=== PATIENT | male | born 1955 | race Caucasian/White ===

== ENCOUNTER 2017-07-02 09:39 | Emergency (ER) | payer OTHER ==
[2017-07-02] MEDS ORDERED: ASPIRIN 81 MG PO STA (09:53)
[2017-07-02] MEDS ORDERED: NITROGLYCERIN OINT 1 INCH/GM PACKET TOPICAL STA (09:53)
--- NOTE | 2017-07-02 09:55 | ED ---
General Adult HPI - General Chief complaint: Chest Pain Stated complaint: Chest pain Time Seen by Provider: 07/02/17 09:47 Source: patient, RN notes reviewed Mode of arrival: wheelchair Limitations: no limitations - History of Present Illness Initial comments: Patient is a pleasant 61-year-old male presenting to the emergency Department with chest discomfort. Onset of symptoms was yesterday afternoon. Symptoms have been waxing and waning. Discomfort feels like tightness. There is also some associated indigestion. No associated nausea or diaphoresis or dyspnea. No history of similar symptoms previously. Discomfort has been up to his high as 5/10. Currently discomfort is 2/10. No radiation. - Related Data Home Medications Medication Instructions Recorded Confirmed No Known Home Medications [No 07/02/17 07/02/17 Known Home Medications] Allergies Allergy/AdvReac Type Severity Reaction Status Date / Time No Known Allergies Allergy Verified 07/02/17 09:57 Review of Systems ROS Statement: Those systems with pertinent positive or pertinent negative responses have been documented in the HPI. ROS Other: All systems not noted in ROS Statement are negative. Constitutional: Denies: fever Eyes: Denies: eye pain ENT: Denies: ear pain Respiratory: Denies: cough, dyspnea Cardiovascular: Reports: chest pain, palpitations Endocrine: Denies: fatigue Gastrointestinal: Denies: abdominal pain Genitourinary: Denies: dysuria Musculoskeletal: Denies: back pain Skin: Denies: rash Neurological: Denies: weakness Past Medical History Past Medical History: No Reported History History of Any Multi-Drug Resistant Organisms: None Reported Past Surgical History: Tonsillectomy Past Psychological History: No Psychological Hx Reported Smoking Status: Never smoker Past Alcohol Use History: None Reported Past Drug Use History: None Reported General Exam Limitations: no limitations General appearance: alert, in no apparent distress Head exam: Present: atraumatic Eye exam: Present: normal appearance, PERRL ENT exam: Present: normal oropharynx Neck exam: Present: normal inspection Respiratory exam: Present: normal lung sounds bilaterally. Absent: chest wall tenderness Cardiovascular Exam: Present: regular rate, normal rhythm Expanded Peripheral pulses: 2+: Radial (R), Radial (L), Posterior Tibialis (R), Posterior Tibialis (L) GI/Abdominal exam: Present: soft. Absent: tenderness Extremities exam: Present: normal inspection. Absent: pedal edema, calf tenderness Neurological exam: Present: alert Psychiatric exam: Present: normal affect, normal mood Skin exam: Present: normal color Course Vital Signs 07/02/17 07/02/17 07/02/17 09:42 10:19 12:03 Temperature 98.2 F 98.2 F Pulse Rate 84 78 68 Respiratory 20 16 16 Rate Blood Pressure 240/107 195/79 181/79 O2 Sat by Pulse 98 96 97 Oximetry EKG Findings - EKG Comments: EKG Findings:: PVC present. Sinus rhythm at 74. CT 178. QRS 114. QT 398. QTC 441. Left axis. Normal QRS. No acute ST change. Medical Decision Making - Medical Decision Making Patient reevaluated and near symptom-free at this time. Patient states he is having more indigestion problems and feels her symptoms are related to that. Patient and spouse are updated on results. Patient is made aware that heart attack has not been ruled out at this time. Patient is also made aware that risk for heart attack in the near future also exists. Patient is recommended admission for repeat testing and cardiology evaluation. Despite this patient refuses to stay. Patient will leave AGAINST MEDICAL ADVICE. Patient does demonstrate medical decision making. Patient is recommended close follow-up with primary care physician and cardiology. - Lab Data Result diagrams: 07/02/17 10:17 07/02/17 10:17 Lab Results 07/02/17 07/02/17 07/02/17 Range/Units 10:17 10:17 10:17 WBC 7.1 (3.8-10.6) k/uL RBC 5.09 (4.30-5.90) m/uL Hgb 15.2 (13.0-17.5) gm/dL Hct 45.6 (39.0-53.0) % MCV 89.5 (80.0-100.0) fL MCH 29.8 (25.0-35.0) pg MCHC 33.3 (31.0-37.0) g/dL RDW 13.3 (11.5-15.5) % Plt Count 204 (150-450) k/uL Neutrophils % 70 % Lymphocytes % 24 % Monocytes % 4 % Eosinophils % 1 % Basophils % 1 % Neutrophils # 5.0 (1.3-7.7) k/uL Lymphocytes # 1.7 (1.0-4.8) k/uL Monocytes # 0.3 (0-1.0) k/uL Eosinophils # 0.1 (0-0.7) k/uL Basophils # 0.1 (0-0.2) k/uL PT (9.0-12.0) sec INR (<1.2) APTT (22.0-30.0) sec Sodium 140 (137-145) mmol/L Potassium 4.0 (3.5-5.1) mmol/L Chloride 104 (98-107) mmol/L Carbon Dioxide 23 (22-30) mmol/L Anion Gap 13 mmol/L BUN 14 (9-20) mg/dL Creatinine 0.86 (0.66-1.25) mg/dL Est GFR (MDRD) Af Amer >60 (>60 ml/min/1.73 sqM) Est GFR (MDRD) Non-Af >60 (>60 ml/min/1.73 sqM) Glucose 123 H (74-99) mg/dL Calcium 9.4 (8.4-10.2) mg/dL Magnesium 1.8 (1.6-2.3) mg/dL Total Bilirubin 0.9 (0.2-1.3) mg/dL AST 31 (17-59) U/L ALT 38 (21-72) U/L Alkaline Phosphatase 106 (38-126) U/L Total Creatine Kinase 159 (55-170) U/L CK-MB (CK-2) 3.8 H* (0.0-2.4) ng/mL CK-MB (CK-2) Rel Index 2.4 Troponin I 0.031 (0.000-0.034) ng/mL Total Protein 7.4 (6.3-8.2) g/dL Albumin 4.2 (3.5-5.0) g/dL 07/02/17 Range/Units 10:17 WBC (3.8-10.6) k/uL RBC (4.30-5.90) m/uL Hgb (13.0-17.5) gm/dL Hct (39.0-53.0) % MCV (80.0-100.0) fL MCH (25.0-35.0) pg MCHC (31.0-37.0) g/dL RDW (11.5-15.5) % Plt Count (150-450) k/uL Neutrophils % % Lymphocytes % % Monocytes % % Eosinophils % % Basophils % % Neutrophils # (1.3-7.7) k/uL Lymphocytes # (1.0-4.8) k/uL Monocytes # (0-1.0) k/uL Eosinophils # (0-0.7) k/uL Basophils # (0-0.2) k/uL PT 10.9 (9.0-12.0) sec INR 1.1 (<1.2) APTT 22.4 (22.0-30.0) sec Sodium (137-145) mmol/L Potassium (3.5-5.1) mmol/L Chloride (98-107) mmol/L Carbon Dioxide (22-30) mmol/L Anion Gap mmol/L BUN (9-20) mg/dL Creatinine (0.66-1.25) mg/dL Est GFR (MDRD) Af Amer (>60 ml/min/1.73 sqM) Est GFR (MDRD) Non-Af (>60 ml/min/1.73 sqM) Glucose (74-99) mg/dL Calcium (8.4-10.2) mg/dL Magnesium (1.6-2.3) mg/dL Total Bilirubin (0.2-1.3) mg/dL AST (17-59) U/L ALT (21-72) U/L Alkaline Phosphatase (38-126) U/L Total Creatine Kinase (55-170) U/L CK-MB (CK-2) (0.0-2.4) ng/mL CK-MB (CK-2) Rel Index Troponin I (0.000-0.034) ng/mL Total Protein (6.3-8.2) g/dL Albumin (3.5-5.0) g/dL - Radiology Data Radiology results: image reviewed (Chest x-ray shows no acute process) Disposition Clinical Impression: Chest pain Disposition: Left Against Medical Advice Instructions: Chest Pain (ED) Additional Instructions: Please follow-up with primary care physician and cardiology tomorrow. Aspirin daily. Return for chest pain, difficulty breathing, nausea, sweating, worsening or change in symptoms or other concerns. You are leaving AGAINST MEDICAL ADVICE. Referrals: Tico Wells MD [STAFF PHYSICIAN] - 1-2 days Srikanth Dumont MD [STAFF PHYSICIAN] - 1-2 days Time of Disposition: 12:13
[2017-07-02 10:36] LABS: Basophils # (A) 0.1 k/uL (0-0.2); Basophils % (A) 1 %; Eosinophils # (A) 0.1 k/uL (0-0.7); Eosinophils % (A) 1 %; HCT 45.6 % (39.0-53.0); HGB 15.2 gm/dL (13.0-17.5); Lymphocytes # (A) 1.7 k/uL (1.0-4.8); Lymphocytes % (A) 24 %; MCH 29.8 pg (25.0-35.0); MCHC 33.3 g/dL (31.0-37.0); MCV 89.5 fL (80.0-100.0); Mean Platelet Volume 7.6; Monocytes # (A) 0.3 k/uL (0-1.0); Monocytes % (A) 4 %; Neutrophils % (A) 70 %; Platelet Count 204 k/uL (150-450); RBC 5.09 m/uL (4.30-5.90); RDW 13.3 % (11.5-15.5); WBC 7.1 k/uL (3.8-10.6)
[2017-07-02 10:44] LABS: INR 1.1 (<1.2); Partial Thromboplastin Time 22.4 sec (22.0-30.0); Prothrombin Time 10.9 sec (9.0-12.0)
--- NOTE | 2017-07-02 10:46 | XR ---
EXAMINATION TYPE: XR chest 2V DATE OF EXAM: 07/02/2017 COMPARISON: NONE HISTORY: Chest pain TECHNIQUE: Frontal and lateral views of the chest are obtained. FINDINGS: There is no focal air space opacity, pleural effusion, or pneumothorax seen. The cardiac silhouette size is within normal limits. The osseous structures are intact. Moderate multilevel deg enerative changes of the thoracic spine are noted. IMPRESSION: No acute cardiopulmonary process.
[2017-07-02 10:47] LABS: ALT 38 U/L (21-72); AST 31 U/L (17-59); Albumin 4.2 g/dL (3.5-5.0); Alkaline Phosphatase 106 U/L (38-126); Anion Gap 13 mmol/L; Blood Urea Nitrogen 14 mg/dL (9-20); Calcium 9.4 mg/dL (8.4-10.2); Carbon Dioxide 23 mmol/L (22-30); Chloride 104 mmol/L (98-107); Glucose 123 mg/dL (74-99); Magnesium 1.8 mg/dL (1.6-2.3); Sodium 140 mmol/L (137-145); Total Bilirubin 0.9 mg/dL (0.2-1.3); Total Protein 7.4 g/dL (6.3-8.2)
[2017-07-02 11:14] LABS: Troponin I 0.031 ng/mL (0.000-0.034)
[2017-07-02 11:22] LABS: Creatine Kinase MB 3.8 ng/mL (0.0-2.4)
[2017-07-02 12:54] VITALS: BP 167/78; PULSE 72; RESP 18; TEMP 97.8
== END 2017-07-02 12:54 | disposition left against medical advice (07) ==
LOC: EC 09:39
DX: R07.9 Chest pain, unspecified (principal)
CPT/HCPCS: 36415; 71046; 80053; 82550; 82553; 83735; 84484; 85025; 85610; 85730; 93005; 99285

== ENCOUNTER 2018-11-10 10:59 | Inpatient (IN) | payer OTHER ==
[2018-11-10] MEDS ORDERED: SODIUM CHLORIDE 0.9% 500 ML 500 ML IV STA (11:39)
--- NOTE | 2018-11-10 11:46 | ED ---
General Adult HPI - General Chief complaint: Syncope Stated complaint: Syncope, head injury Time Seen by Provider: 11/10/18 11:09 Source: patient Mode of arrival: wheelchair Limitations: no limitations - History of Present Illness Initial comments: Dictation was produced using [employer] dictation software. please excuse any grammatical, word or spelling errors. Chief Complaint: 63-year-old male with no significant past medical history presents with episode of syncope. History of Present Illness: 63-year-old male he was in his barn earlier today when he was carrying a 5 gallon drum while. He states he opened the drum of oil and got a strong whiff of the smell. He states he put the cover back on and carried it to some distance when he syncopized. The next Romberg was waking up on the ground with a slight posterior headache. Patient noted some blood on the back of his head. Patient believes he was on the ground for approximately 3-4 minutes. She denies any symptoms prior to the onset of his syncope. He does report that upon waking he had some posterior interscapular pain. Patient also has been having couple days of jaw tenderness worse with mastication. Patient recently was evaluated by cardiology where he had extensive testing performed and was told that cardiac workup was negative. Patient denies any no deficits. Patient has no chest complaints. Patient does not know if he has a history of left bundle branch block but he was told that he has abnormal signal to his left and right heart. The ROS documented in this emergency department record has been reviewed and confirmed by me. Those systems with pertinent positive or negative responses have been documented in the HPI. All other systems are other negative and/or noncontributory. PHYSICAL EXAM: General Impression: Alert and oriented x3, not in acute distress HEENT: Superficial abrasion to the posterior head at the occiput with mild swelling, extra-ocular movements intact, pupils equal and reactive to light bilaterally, mucous membranes moist. Cardiovascular: Heart regular rate and rhythm, S1&S2 audible, no murmurs, rubs or gallops Chest: Lungs clear to auscultation bilaterally, no rhonchi, no wheeze, no rales Abdomen: Bowel sounds present, abdomen soft, non-tender, non-distended, no organomegaly Musculoskeletal: Pulses present and equal in all extremities, no peripheral edema Motor: no focal deficits noted Neurological: CN II-XII grossly intact, no focal motor or sensory deficits noted Skin: Intact with no visualized rashes Psych: Normal affect and mood ED course: 63-year-old male presents with chief complaint of syncope. Vital signs upon arrival shows blood pressure of 224/117. Patient is slightly anxious. EKG shows left bundle branch block that is not apparent on EKG from June of last year. Patient denies any shortness of breath. Patient states that his pain in his interscapular region is improving. Denies any numbness or paresthesias to extremities. At this point there is no clinical suspicion of syncope secondary to acute aortic dissection. Repeat vital signs were obtained. Patient's blood pressure still high in the 200s systolic. Laboratory evaluation obtained. CBC, coag panel is unremarkable. Metabolic panel is negative. Urinalysis is negative. Patient has any chest pain or shortness of breath. Computed tomography scan of the head and C-spine was obtained showing no acute processes. No evidence of subarachnoid bleed or bleeding aneurysm. There is posterior occipital scalp hematoma. CT C-spine is negative. C-collar was removed. At this point given patient's symptoms there is high concern that his significant be could be cardiac related. Is unclear whether his left bundle branch block is new. However he is asymptomatic aside denies any chest pain chest pressure and shortness of breath or any other ACS equivalent. Furthermore, patient has negative troponin. Patient be admitted to observation for cardiac monitoring and cardiac consultation. Patient labetalol per request and protocol for floor. EKG interpretation: Ventricular rate 89, normal sinus rhythm, IA interval 180, QRS 174, QTc 506. No IA prolongation, , no ST or T-wave changes noted. - Related Data Home Medications Medication Instructions Recorded Confirmed No Known Home Medications 07/02/17 11/10/18 Allergies Allergy/AdvReac Type Severity Reaction Status Date / Time No Known Allergies Allergy Verified 11/10/18 11:42 Review of Systems ROS Statement: Those systems with pertinent positive or pertinent negative responses have been documented in the HPI. ROS Other: All systems not noted in ROS Statement are negative. Past Medical History Past Medical History: No Reported History History of Any Multi-Drug Resistant Organisms: None Reported Past Surgical History: Tonsillectomy Past Psychological History: No Psychological Hx Reported Smoking Status: Never smoker Past Alcohol Use History: None Reported Past Drug Use History: None Reported General Exam Limitations: no limitations Course Vital Signs 11/10/18 11:04 Temperature 97.4 F L Pulse Rate 89 Respiratory 18 Rate Blood Pressure 224/117 O2 Sat by Pulse 99 Oximetry Medical Decision Making - Lab Data Result diagrams: 11/10/18 11:50 11/10/18 11:50 Lab Results 11/10/18 11/10/18 11/10/18 Range/Units 11:50 11:50 11:50 WBC 8.1 (3.8-10.6) k/uL RBC 5.01 (4.30-5.90) m/uL Hgb 14.6 (13.0-17.5) gm/dL Hct 45.2 (39.0-53.0) % MCV 90.2 (80.0-100.0) fL MCH 29.1 (25.0-35.0) pg MCHC 32.3 (31.0-37.0) g/dL RDW 13.9 (11.5-15.5) % Plt Count 211 (150-450) k/uL Neutrophils % 76 % Lymphocytes % 16 % Monocytes % 4 % Eosinophils % 1 % Basophils % 1 % Neutrophils # 6.1 (1.3-7.7) k/uL Lymphocytes # 1.3 (1.0-4.8) k/uL Monocytes # 0.4 (0-1.0) k/uL Eosinophils # 0.1 (0-0.7) k/uL Basophils # 0.1 (0-0.2) k/uL PT (9.0-12.0) sec INR (<1.2) APTT (22.0-30.0) sec Sodium 141 (137-145) mmol/L Potassium 4.5 (3.5-5.1) mmol/L Chloride 104 (98-107) mmol/L Carbon Dioxide 29 (22-30) mmol/L Anion Gap 8 mmol/L BUN 18 (9-20) mg/dL Creatinine 0.92 (0.66-1.25) mg/dL Est GFR (CKD-EPI)AfAm >90 (>60 ml/min/1.73 sqM) Est GFR (CKD-EPI)NonAf 88 (>60 ml/min/1.73 sqM) Glucose 119 H (74-99) mg/dL Calcium 9.3 (8.4-10.2) mg/dL Magnesium 1.8 (1.6-2.3) mg/dL Total Bilirubin 0.7 (0.2-1.3) mg/dL AST 47 (17-59) U/L ALT 41 (21-72) U/L Alkaline Phosphatase 184 H (38-126) U/L CK-MB (CK-2) 2.3 (0.0-2.4) ng/mL Troponin I 0.013 (0.000-0.034) ng/mL Total Protein 7.3 (6.3-8.2) g/dL Albumin 4.2 (3.5-5.0) g/dL Urine Color Urine Appearance (Clear) Urine pH (5.0-8.0) Ur Specific [place] (1.001-1.035) Urine Protein (Negative) Urine Glucose (UA) (Negative) Urine Ketones (Negative) Urine Blood (Negative) Urine Nitrite (Negative) Urine Bilirubin (Negative) Urine Urobilinogen (<2.0) mg/dL Ur Leukocyte Esterase (Negative) 11/10/18 11/10/18 Range/Units 11:50 13:24 WBC (3.8-10.6) k/uL RBC (4.30-5.90) m/uL Hgb (13.0-17.5) gm/dL Hct (39.0-53.0) % MCV (80.0-100.0) fL MCH (25.0-35.0) pg MCHC (31.0-37.0) g/dL RDW (11.5-15.5) % Plt Count (150-450) k/uL Neutrophils % % Lymphocytes % % Monocytes % % Eosinophils % % Basophils % % Neutrophils # (1.3-7.7) k/uL Lymphocytes # (1.0-4.8) k/uL Monocytes # (0-1.0) k/uL Eosinophils # (0-0.7) k/uL Basophils # (0-0.2) k/uL PT 9.7 (9.0-12.0) sec INR 0.9 (<1.2) APTT 21.4 L (22.0-30.0) sec Sodium (137-145) mmol/L Potassium (3.5-5.1) mmol/L Chloride (98-107) mmol/L Carbon Dioxide (22-30) mmol/L Anion Gap mmol/L BUN (9-20) mg/dL Creatinine (0.66-1.25) mg/dL Est GFR (CKD-EPI)AfAm (>60 ml/min/1.73 sqM) Est GFR (CKD-EPI)NonAf (>60 ml/min/1.73 sqM) Glucose (74-99) mg/dL Calcium (8.4-10.2) mg/dL Magnesium (1.6-2.3) mg/dL Total Bilirubin (0.2-1.3) mg/dL AST (17-59) U/L ALT (21-72) U/L Alkaline Phosphatase (38-126) U/L CK-MB (CK-2) (0.0-2.4) ng/mL Troponin I (0.000-0.034) ng/mL Total Protein (6.3-8.2) g/dL Albumin (3.5-5.0) g/dL Urine Color Yellow Urine Appearance Clear (Clear) Urine pH 6.5 (5.0-8.0) Ur Specific [place] 1.012 (1.001-1.035) Urine Protein Negative (Negative) Urine Glucose (UA) Negative (Negative) Urine Ketones Negative (Negative) Urine Blood Negative (Negative) Urine Nitrite Negative (Negative) Urine Bilirubin Negative (Negative) Urine Urobilinogen <2.0 (<2.0) mg/dL Ur Leukocyte Esterase Negative (Negative) Disposition Clinical Impression: Syncope Disposition: ADMITTED IP TO THIS [facility] Condition: Fair Referrals: Felipe Mar DO [Primary Care Provider] - 1-2 days Decision Time: 14:48
[2018-11-10 12:09] LABS: Basophils # (A) 0.1 k/uL (0-0.2); Basophils % (A) 1 %; Eosinophils # (A) 0.1 k/uL (0-0.7); Eosinophils % (A) 1 %; HCT 45.2 % (39.0-53.0); HGB 14.6 gm/dL (13.0-17.5); Lymphocytes # (A) 1.3 k/uL (1.0-4.8); Lymphocytes % (A) 16 %; MCH 29.1 pg (25.0-35.0); MCHC 32.3 g/dL (31.0-37.0); MCV 90.2 fL (80.0-100.0); Mean Platelet Volume 7.5; Monocytes # (A) 0.4 k/uL (0-1.0); Monocytes % (A) 4 %; Neutrophils # (A) 6.1 k/uL (1.3-7.7); Neutrophils % (A) 76 %; Platelet Count 211 k/uL (150-450); RBC 5.01 m/uL (4.30-5.90); RDW 13.9 % (11.5-15.5); WBC 8.1 k/uL (3.8-10.6)
[2018-11-10 12:21] LABS: ALT 41 U/L (21-72); AST 47 U/L (17-59); Albumin 4.2 g/dL (3.5-5.0); Alkaline Phosphatase 184 U/L (38-126); Anion Gap 8 mmol/L; Blood Urea Nitrogen 18 mg/dL (9-20); Calcium 9.3 mg/dL (8.4-10.2); Carbon Dioxide 29 mmol/L (22-30); Chloride 104 mmol/L (98-107); Glucose 119 mg/dL (74-99); Magnesium 1.8 mg/dL (1.6-2.3); Potassium 4.5 mmol/L (3.5-5.1); Sodium 141 mmol/L (137-145); Total Bilirubin 0.7 mg/dL (0.2-1.3); Total Protein 7.3 g/dL (6.3-8.2)
[2018-11-10 12:30] LABS: INR 0.9 (<1.2); Prothrombin Time 9.7 sec (9.0-12.0)
[2018-11-10 12:33] LABS: Partial Thromboplastin Time 21.4 sec (22.0-30.0)
--- NOTE | 2018-11-10 12:34 | XR ---
EXAMINATION TYPE: XR chest 2V DATE OF EXAM: 11/10/2018 HISTORY: syncope. REFERENCE: Previous study dated 07/02/2017. FINDINGS: Heart size upper limits of normal. The lungs are clear. Pleural spaces are clear. There ar e moderate hypertrophic changes in the AC joints bilaterally. IMPRESSION: NO ACUTE INTRATHORACIC ABNORMALITY.
[2018-11-10 12:50] LABS: Creatine Kinase MB 2.3 ng/mL (0.0-2.4); Troponin I 0.013 ng/mL (0.000-0.034)
[2018-11-10 13:35] LABS: Appearance,Urine Clear (Clear); Bilirubin,Urine Negative (Negative); Blood,Urine Negative (Negative); Color,Urine Yellow; Glucose,Urine (UA) Negative (Negative); Ketones,Urine Negative (Negative); Leukocyte Esterase,Urine Negative (Negative); Nitrite,Urine Negative (Negative); PH, Urine 6.5 (5.0-8.0); Protein,Urine Negative (Negative); Specific Gravity,Urine 1.012 (1.001-1.035); Urobilinogen,Urine <2.0 mg/dL (<2.0)
--- NOTE | 2018-11-10 14:22 | CT ---
EXAMINATION TYPE: CT brain bhupinder cox DATE OF EXAM: 11/10/2018 COMPARISON: NONE HISTORY: passed out and struck back of head CT DLP: 1619.2 mGycm Automated exposure control for dose reduction was used. TECHNIQUE: CT scan of the head and cervical spine are performed without contrast. FINDINGS: BRAIN: There is a posterior cyst occipital scalp hematoma. Central structures are midline. There is no evidence of hydrocephalus. No acute focal lesion, mass ef fect or midline shift is seen. I do not see evidence of intracranial blood. r there is a 7.6 mm retention cyst or polyp in the right maxillary sinus. There is an 11.6 mm retenti on cyst or polyp in the left maxillary sinus. The remainder the paranasal sinuses and mastoids are cl ear. The bony calvarium is intact. IMPRESSION: 1. NO ACUTE INTRACRANIAL ABNORMALITY. 2. SINUS MUCOSAL DISEASE. 3. POSTERIOR OCCIPITAL SCALP HEMATOMA. CERVICAL SPINE: Visualized portions of the lungs are clear. There is some shotty deep cervical adenopathy. No pathologically enlarged lymph nodes are seen. Preve rtebral soft tissues are otherwise unremarkable. Vertebral body height and alignment are maintained. Atlantoaxial relationships are normal. There is degenerative disc disease present at C6-7. There is mild hypertrophic spondylosis at this le david as well as uncovertebral joint disease. The facets are unremarkable. No definite protrusion is se en. IMPRESSION: 1. NO ACUTE OSSEOUS LESION. 2. DEGENERATIVE CHANGE.
[2018-11-10] MEDS ORDERED: LABETALOL SYRINGE 5 MG/ML IVP STA ×2 (14:48→15:32)
[2018-11-10] MEDS ORDERED: ACETAMINOPHEN TAB 325 MG TAB PO PRN (14:49)
[2018-11-10] MEDS ORDERED: NALOXONE 0.4 MG/ML 1 ML VIAL IV PRN (14:49)
[2018-11-10] MEDS ORDERED: ASPIRIN 81 MG PO STA (14:51)
[2018-11-10] MEDS: SODIUM CHLORIDE 0.9% 1,000 ML IV SCH (15:40)
--- NOTE | 2018-11-10 19:02 | P.HPIM ---
History of Present Illness H&P Date: 11/10/18 Chief Complaint: Syncope 63 year old M with no significant PMH presents to the ED after a syncopal episode. Patient states that he was carrying a 5 gallon hydraulic fluid container to the front of his house. Patient states he bent over of the container. He was able to get up, and started walking back to the house. Patient states he was able to walk about 25-30 feet before passing out. Patient, palpitations or shortness of breath prior to passing out. Patient states that he felt lightheadedness for a split second prior to LOC. There was noone to witness the syncope. Patient denies any tongue biting, bladder or bowel incontinence. Patient states he thinks he lost consciousness for 5-10 minutes. After regaining consciousness, patient denies post ictal confusion, headache, difficulty with gait or numbness/weakness/tingling of the extremities. Patient denies headache, lower extremity edema, nausea, vomiting, fever, cough, chest pain, shortness of breath, changes in urination or bowel habits. No changes in appetite or weight. Patient denies any current dizziness, numbness/weakness/tingling of the extremities. Per patient, he has chest pain 1 year prior to and was evaluated by Dr. Dumont for abnormal EKG changes. He underwent Echocardiogram and stress testi which was negative. BP was 224/117. Vital signs are otherwise stable. CBC and CMP were unremarkable except glucose of 119 and ALK-P of 184. Troponin was 0.013 with EKG showing NSR with LBBB. Chest x-ray was negative for acute process. Brain CT showed posterior occipital scalp hematoma, negative C-spine. Patient is admitted for observation for syncopal episode, abnormal EKG and Cardiology consult. Review of Systems Pertinent positives and negatives as discussed in HPI, a complete review of systems was performed and all other systems are negative. Past Medical History Past Medical History: No Reported History, Hypertension, Pneumonia, Syncope History of Any Multi-Drug Resistant Organisms: None Reported Past Surgical History: Tonsillectomy Past Anesthesia/Blood Transfusion Reactions: No Reported Reaction Past Psychological History: No Psychological Hx Reported Smoking Status: Never smoker Past Alcohol Use History: None Reported Past Drug Use History: None Reported - Past Family History Father Additional Family Medical History / Comment(s): cabg kidney failure Mother Additional Family Medical History / Comment(s): [employer] valve Medications and Allergies Home Medications Medication Instructions Recorded Confirmed Type No Known Home Medications 07/02/17 11/10/18 History Allergies Allergy/AdvReac Type Severity Reaction Status Date / Time No Known Allergies Allergy Verified 11/10/18 11:42 Physical Exam Vitals: Vital Signs Temp Pulse Pulse Resp BP BP Pulse Ox 11/10/18 16:35 99.0 F 80 18 187/93 96 11/10/18 16:00 98.0 F 72 18 170/76 98 11/10/18 15:42 79 18 183/84 98 11/10/18 15:26 93 16 207/102 95 11/10/18 11:04 97.4 F L 89 18 224/117 99 Intake and Output 11/10/18 11/10/18 11/10/18 06:59 14:59 22:59 Other: Voiding Method Toilet Weight 136.078 kg General: [non toxic], [no distress], [appears at stated age] Derm: [warm], [dry] Head: [atraumatic], [normocephalic], [symmetric], [posterior scalp laceration] Eyes: [EOMI], [no lid lag], [anicteric sclera] Mouth: [no lip lesion], [mucus membranes moist] Cardiovascular: [S1S2 reg], [no murmur], [positive posterior tibial pulse bilateral] Lungs: [CTA bilateral], [no rhonchi, no rales] , [no accessory muscle use] Abdominal: [soft], [ nontender to palpation], [no guarding], [no appreciable organomegaly] Ext: [no gross muscle atrophy], [no edema], [no contractures] Neuro: [ CN II-XI grossly intact], [no focal neuro deficits] Psych: [Alert], [oriented], [appropriate affect] Results CBC & Chem 7: 11/10/18 11:50 11/10/18 11:50 Labs: Abnormal Lab Results - Last 24 Hours (Table) 11/10/18 11/10/18 Range/Units 11:50 11:50 APTT 21.4 L (22.0-30.0) sec Glucose 119 H (74-99) mg/dL Alkaline Phosphatase 184 H (38-126) U/L Thrombosis Risk Factor Assmnt - Choose All That Apply Any of the Below Risk Factors Present?: Yes Each Factor Represents 1 point: Obesity (BMI >25) Other Risk Factors: Yes Each Risk Factor Represents 2 Points: Age 61-74 years Other congenital or acquired thrombophilia - If yes, enter type in comment: No Thrombosis Risk Factor Assessment Total Risk Factor Score: 3 Thrombosis Risk Factor Assessment Level: Moderate Risk Assessment and Plan Assessment: Assessment and Plan Syncopal episode likely vasovagal or orthostatic, rule out acute coronary syndrome Hypertensive urgency Given history, appears orthostatic or vasovagal in nature. Plan: Telemetry monitoring. Follow orthostats. Trend Trop/EKG to rule out acute coronary syndrome. Recent echo and stress test done in the past. Follow cardiology recommendations. Continue normal saline 80 mL per hour. BP 224/[address] brain/C-spine negative. Plan: Start Coreg. Monitor vitals, adjust medications as necessary. Patient remains FULL CODE. Names his Lucia decision maker if he cant make decisions for himself. DVT prophylaxis: [SCD boots] Discussed with: [Patient and ] Anticipated discharge: [Home] Anticipated discharge place: [1-2 days] A total of [30] minutes was spent on the care of this complex patient more than 50% of the time was spent in counseling and care coordination.
[2018-11-10] MEDS: CARVEDILOL 3.125 MG TAB PO SCH (19:33)
[2018-11-11] MEDS: SODIUM CHLORIDE 0.9% 1,000 ML IV SCH (04:24)
[2018-11-11] MEDS: CARVEDILOL 3.125 MG TAB PO SCH (06:18)
[2018-11-11] MEDS ORDERED: ALPRAZolam 0.25 MG TAB PO PRN (08:54)
[2018-11-11] MEDS ORDERED: SODIUM CHLORIDE 0.9% 1,000 ML in EMPTY BAG 1 BAG IV ONE (08:54)
[2018-11-11] MEDS ORDERED: ALPRAZolam 0.5 MG TAB PO PRN (08:54)
[2018-11-11] MEDS ORDERED: NITROGLYCERIN SL TABS 0.4 MG TAB SUBLINGUAL PRN (08:54)
[2018-11-11] MEDS ORDERED: ATORVASTATIN 80 MG TAB PO STA (08:58)
[2018-11-11] MEDS ORDERED: ASPIRIN 325 MG TAB PO STA (08:58)
[2018-11-11] MEDS ORDERED: CARVEDILOL 3.125 MG TAB PO ONE (09:00)
[2018-11-11] MEDS: LOSARTAN 50 MG TAB PO SCH (09:48)
--- NOTE | 2018-11-11 12:58 | P.CRDCN ---
History of Present Illness History of present illness: This is a pleasant 63-year-old male past medical history significant for hypertension that is untreated by the patient's choice and obesity. He is seen Dr. Dumont in the office approximately one year ago secondary to an episode of chest discomfort. At that time he underwent a Cardiolite stress test that revealed average exercise capacity, rate related left bundle branch block and normal myocardial perfusion imaging. He also underwent an echocardiogram at that time revealing preserved LV systolic function with ejection fraction 55%. We have been asked to see him in consultation secondary to an episode of syncope. He states yesterday afternoon he was walking through his barn when all of a sudden out of nowhere he had an intense sharp pain in his forehead and the next thing he remembers he wakes up on the floor of his barn. He suffered a large hematoma to the back of his head. At his best estimation he thinks he was down for approximately 10-15 minutes but is unclear as this was an unwitnessed event. He denies any symptoms of chest discomfort, shortness of breath, dizziness, palpitations, nausea, vomiting or diaphoresis prior to passing out. When he woke up he states he was extremely disoriented but had no cardiac symptoms other than an ongoing headache. Blood pressure on arrival to the emergency department was 224/117 and 207/102. He is seen and examined resting comfortably in bed in no acute distress. He complains of some achy sensation to his back with movement of his torso as well mild ongoing headache. When he saw Dr. Dumont in the office in 2018 he was recommended antihypertensive therapy however the patient states he did not want to take any medication and we will attempt weight loss. He states his blood pressures are typically well-co ntrolled when he sees his primary care physician in the range of 130 to 140 systolic. He was given a dose of IV labetalol in the emergency department. Blood pressures continued to be elevated in the 170-190 range. EKG reveals sinus mechanism with left bundle branch block and left axis deviation. Chest x-ray is negative for an acute cardiopulmonary process. CT of the head and C-spine is negative for an acute intracranial abnormality with evidence of posterior occipital scalp hematoma. Laboratory data reviewed, WBC 8.1, hemoglobin 14.6, platelets 211, sodium 141, potassium 4.5, creatinine 0.92, magnesium 1.8, cardiac enzymes 0.13, 0.046 and 0.036. At the time of my exam: CONSTITUTIONAL: Denies fever. Denies chills. EYES: Denies blurred vision. Denies vision changes. Denies eye pain. EARS, NOSE, MOUTH & THROAT: Denies headache. Denies sore throat. Denies ear pain. CARDIOVASCULAR: Denies chest pain. Denies shortness of breath. Denies orthopnea. Denies PND. Denies palpitations. RESPIRATORY: Denies cough. GASTROINTESTINAL: Denies abdominal pain. Denies diarrhea. Denies constipation. D enies nausea. Denies vomiting. MUSCULOSKELETAL: Denies myalgias. INTEGUMENTARY: Denies pruitis. Denies rash. NEUROLOGIC: Denies numbness. Denies tingling. Denies weakness. PSYCHIATRIC: Denies anxiety. Denies depression. ENDOCRINE: Denies fatigue. Denies weight change. Denies polydipsia. Denies polyu chris. GENITOURINARY: Denies burning, hematuria or urgency with micturation. HEMATOLOGIC: Denies history of anemia. Denies bleeding. Blood pressure 182/87 heart rate 68 afebrile maintaining oxygen saturation on room air GENERAL: This is a 63-year-old male in no apparent distress at the ti me of my examination. HEENT: Head is atraumatic, normocephalic. Pupils are equal, round. Sclerae ani cteric. Conjunctivae are clear. Mucous membranes of the mouth are moist. Neck is supple. There is no jugular venous distention. No carotid bruit is heard. LUNGS: Clear to auscultation no wheezes, rales or rhonchi. No chest wall tenderness is noted on palpation or with deep breathing. HEART: Regular rate and rhythm without murmurs, rubs or gallops. S1 and S2 heard. ABDOMEN: Soft, nontender. Bowel sounds are heard. No organomegaly noted. EXTREMITIES: No evidence of peripheral edema and no calf tenderness noted. VASCULAR: Radial and dorsalis pedis pulses palpated, no evidence of clubbing. NEUROLOGIC: Patient is awake, alert and oriented x3. ASSESSMENT Syncope Non-ST elevated myocardial infarction Hypertension, uncontrolled Left bundle branch block Obesity, BMI 35 PLAN Coreg has been started by primary care team, increase to 6.25 mg BID and add losartan 50 mg daily. Check lipid profile and d-dimer. Obtain 2D echocardiogram and doppler study to assess cardiac structure and function. Perform cardiac catheterization to assess for obstructive coronary artery disease. I have discussed the risks, benefits and alternative therapies for the above-mentioned procedure and for both sedation/analgesia as well as necessary blood product administration, if indicated, as they pertain to this patient. The patient and his have indicated understanding and acceptance of the risks and procedures discussed. Questions have been answered appropriately. Case has been discussed and boarded with Dr. Dumont. Further recommendations to follow based on clinical course. Thank you kindly for this consultation. Nurse Practitioner note has been reviewed, I agree with a documented findings and plan of care. Patient was seen and examined. Past Medical History Past Medical History: No Reported History, Hypertension, Pneumonia, Syncope History of Any Multi-Drug Resistant Organisms: None Reported Past Surgical History: Tonsillectomy Past Anesthesia/Blood Transfusion Reactions: No Reported Reaction Past Psychological History: No Psychological Hx Reported Smoking Status: Never smoker Past Alcohol Use History: None Reported Past Drug Use History: None Reported - Past Family History Father Additional Family Medical History / Comment(s): cabg kidney failure Mother Additional Family Medical History / Comment(s): [employer] judes valve Medications and Allergies Home Medications Medication Instructions Recorded Confirmed Type No Known Home Medications 07/02/17 11/10/18 History Allergies Allergy/AdvReac Type Severity Reaction Status Date / Time No Known Allergies Allergy Verified 11/10/18 11:42 Physical Exam Vitals: Vital Signs Temp Pulse Pulse Resp BP BP BP 11/11/18 12:00 98.5 F 68 18 181/82 11/11/18 08:00 68 18 11/11/18 07:35 98.4 F 68 18 182/87 190/96 11/11/18 04:25 176/70 11/11/18 04:00 98.4 F 78 16 183/78 11/11/18 03:54 67 15 11/11/18 00:00 98.1 F 67 15 156/57 11/10/18 19:46 78 16 11/10/18 19:18 99.4 F 78 16 176/78 11/10/18 16:35 99.0 F 80 18 187/93 11/10/18 16:00 98.0 F 72 18 170/76 11/10/18 15:42 79 18 183/84 11/10/18 15:26 93 16 207/102 Pulse Ox 11/11/18 12:00 99 11/11/18 08:00 11/11/18 07:35 97 11/11/18 04:25 11/11/18 04:00 97 11/11/18 03:54 11/11/18 00:00 97 11/10/18 19:46 11/10/18 19:18 97 11/10/18 16:35 96 11/10/18 16:00 98 11/10/18 15:42 98 11/10/18 15:26 95 Intake and Output 11/10/18 11/11/18 11/11/18 22:59 06:59 14:59 Intake Total 200 480 Balance 200 480 Intake: Intake, IV Titration 480 Amount Sodium Chloride 0.9% 1, 480 000 ml @ 80 mls/hr IV . [id number] [facility] Rx#:[id number] Oral 200 Other: Voiding Method Toilet Toilet Toilet # Voids 1 1 5 Results 11/10/18 11:50 11/10/18 11:50 Cardiac Enzymes 11/10/18 11/11/18 11/11/18 Range/Units 11:50 00:28 05:42 CK-MB (CK-2) 2.3 (0.0-2.4) ng/mL Troponin I 0.013 0.046 H* 0.036 H* (0.000-0.034) ng/mL Current Medications Generic Name Dose Route Start Last Admin Trade Name Freq PRN Reason Stop Dose Admin Acetaminophen 650 mg 11/10/18 14:49 11/10/18 19:33 Tylenol Tab PO 650 mg Q6HR PRN Administration Mild Pain or Fever > 100.5 Alprazolam 0.25 mg 11/11/18 08:54 Xanax PO Q6HR PRN Mild Anxiety Alprazolam 0.5 mg 11/11/18 08:54 Xanax PO Q6HR PRN Moderate Anxiety Carvedilol 6.25 mg 11/11/18 17:30 Coreg PO BID-W/MEALS JOSE Hydrochlorothiazide 25 mg 11/11/18 12:15 Hydrodiuril PO DAILY JOSE Sodium Chloride 1,000 mls @ 80 mls/hr 11/10/18 15:00 11/11/18 04:24 Saline 0.9% IV Not Given .[id number] [facility] Sodium Chloride 1,000 ml/ IV 1,000 mls @ 136.078 mls/hr 11/11/18 08:54 09:49 Solution IV 11/11/18 16:14 136.078 mls/hr .[id number] ONE Administration 1 ML/KG/HR Losartan Potassium 50 mg 11/11/18 09:00 11/11/18 09:48 Cozaar PO 50 mg DAILY JOSE Administration Naloxone HCl 0.2 mg 11/10/18 14:49 Narcan IV Q2M PRN Opioid Reversal Nitroglycerin 0.4 mg 11/11/18 08:54 Nitrostat SUBLINGUAL Q5M PRN Chest Pain Intake and Output 11/10/18 11/11/18 11/11/18 22:59 06:59 14:59 Intake Total 200 480 Balance 200 480 Intake: Intake, IV Titration 480 Amount Sodium Chloride 0.9% 1, 480 000 ml @ 80 mls/hr IV . [id number] [facility] Rx#:[id number] Oral 200 Other: Voiding Method Toilet Toilet Toilet # Voids 1 1 5 11/10/18 11:50 11/10/18 11:50
[2018-11-11] MEDS: HYDROCHLOROTHIAZIDE 25 MG TAB PO SCH (13:01)
[2018-11-11 13:15] LABS: Cholesterol 143 mg/dL (<200); HDL Cholesterol 25 mg/dL (40-60); LDL Cholesterol,Calculated 90 mg/dL (0-99); Triglycerides 139 mg/dL (<150)
[2018-11-11] MEDS: CARVEDILOL 6.25 MG TAB PO SCH (17:07)
--- NOTE | 2018-11-11 18:25 | P.PN ---
Subjective Progress Note Date: 11/11/18 Principal diagnosis: Syncope Patient seen and examined. No acute events overnight. Patient denies any chest pain, shortness breath or palpitations. No nausea or vomiting. No fever or chills. No more episodes of syncope. No dizziness. He denies any numbness/weakness/tingling. Able to ambulate the hallways without any difficulties. Objective - Vital Signs Vital signs: Vital Signs Temp 98.4 F 11/11/18 16:00 Pulse 66 11/11/18 16:00 Resp 18 11/11/18 16:00 BP 186/95 11/11/18 16:00 Pulse Ox 98 11/11/18 16:00 Intake & Output 11/10/18 11/11/18 11/11/18 18:59 06:59 18:59 Intake Total 680 Balance 680 Weight 136.078 kg Intake: Intake, IV Titration 480 Amount Sodium Chloride 0.9% 1, 480 000 ml @ 80 mls/hr IV . [id number] [facility] Rx#:[id number] Oral 200 Other: Voiding Method Toilet Toilet Toilet # Voids 1 5 - Exam General: [non toxic], [no distress], [appears at stated age] Derm: [warm], [dry] Head: [atraumatic], [normocephalic], [symmetric], [posterior scalp laceration] Eyes: [EOMI], [no lid lag], [anicteric sclera] Mouth: [no lip lesion], [mucus membranes moist] Cardiovascular: [S1S2 reg], [no murmur], [positive posterior tibial pulse bilateral] Lungs: [CTA bilateral], [no rhonchi, no rales] , [no accessory muscle use] Abdominal: [soft], [ nontender to palpation], [no guarding], [no appreciable organomegaly] Ext: [no gross muscle atrophy], [no edema], [no contractures] Neuro: [ CN II-XI grossly intact], [no focal neuro deficits] Psych: [Alert], [oriented], [appropriate affect] - Labs CBC & Chem 7: 11/10/18 11:50 11/10/18 11:50 Labs: Abnormal Lab Results - Last 24 Hours (Table) 11/11/18 11/11/18 11/11/18 Range/Units 00:28 05:42 05:42 D-Dimer (<0.60) mg/L FEU Troponin I 0.046 H* 0.036 H* (0.000-0.034) ng/mL HDL Cholesterol 25 L (40-60) mg/dL 11/11/18 Range/Units 13:10 D-Dimer 1.83 H (<0.60) mg/L FEU Troponin I (0.000-0.034) ng/mL HDL Cholesterol (40-60) mg/dL Assessment and Plan Assessment: Assessment and Plan Syncopal episode likely vasovagal or orthostatic, rule out acute coronary syndrome Hypertensive urgency Given history, appears orthostatic or vasovagal in nature. Troponin 0.013, 0.046, 0.036 with EKG showing LBBB, ACS ruled out. Orthostats negative. Plan: Cardiology consulted, recommend cardiac catheterization tomorrow. Follow card iology recommendations. Continue normal saline 80 mL per hour. BP 186/95. CT brain/C-spine negative. Plan: Increase Coreg. Start losartan and hydrochlorothiazide. Monitor vitals, adjust medications as necessary. Patient remains FULL CODE. Names his Lucia decision maker if he cant make decisions for himself.. Plans for cardiac catheterization tomorrow. DC if normal.
[2018-11-11] MEDS ORDERED: LABETALOL SYRINGE 5 MG/ML IVP STA (20:59)
[2018-11-12] MEDS: ASPIRIN 81 MG PO SCH (06:00)
[2018-11-12] MEDS: CARVEDILOL 6.25 MG TAB PO SCH ×2 (06:00→17:53)
[2018-11-12] MEDS: SODIUM CHLORIDE 0.9% 1,000 ML IV SCH ×2 (06:01→06:02)
[2018-11-12] MEDS: LOSARTAN 50 MG TAB PO SCH ×2 (06:01→23:25)
--- NOTE | 2018-11-12 07:50 | ECHOF ---
Referral Reason:syncope MEASUREMENTS -------- HEIGHT: 195.6 cm WEIGHT: 136.1 kg BP: 181/82 RVIDd: 3.8 cm (< 3.3) IVSd: 1.6 cm (0.6 - 1.1) LVIDd: 5.5 cm (3.9 - 5.3) LVPWd: 1.8 cm (0.6 - 1.1) IVSs: 1.5 cm LVIDs: 4.1 cm LVPWs: 1.7 cm LAESV Index (A-L): 24.45 ml/m Ao Diam: 3.1 cm (2.0 - 3.7) AV Cusp: 2.0 cm (1.5 - 2.6) LA Diam: 4.1 cm (2.7 - 3.8) MV EXCURSION: 17.310 mm (> 18.000) MV EF SLOPE: 60 mm/s (70 - 150) EPSS: 1.9 cm MV E Lorenzo: 0.97 m/s MV DecT: 214 ms MV A Lorenzo: 0.86 m/s MV E/A Ratio: 1.12 RAP: 5.00 mmHg RVSP: 21.59 mmHg FINDINGS -------- Sinus rhythm. This was a technically difficult study with suboptimal views. The left ventricular size is normal. There is moderate concentric left ventricular hypertrophy. O verall left ventricular systolic function is normal with, an EF between 55 - 60 %. The right ventricle is mildly enlarged. Normal LA size by volume 22+/-6 ml/m2. The right atrial size is normal. 5.0mg OF Lumason UTLIZED: 2 OR MORE WALL SEGMENTS NOT VISUALIZED. Interatrial and interventricular septum intact. The aortic valve is trileaflet, and appears structurally normal. No aortic stenosis or regurgitation. There is trace mitral regurgitation. Mild tricuspid regurgitation present. There is no evidence of pulmonary hypertension. The right v entricular systolic pressure, as measured by Doppler, is 21.59mmHg. Trace/mild (physiologic) pulmonic regurgitation. The aortic root size is normal. Normal inferior vena cava with normal inspiratory collapse consistent with estimated right atrial pre ssure of 5 mmHg. There is no pericardial effusion. CONCLUSIONS -------- 1. Sinus rhythm. 2. This was a technically difficult study with suboptimal views. 3. The left ventricular size is normal. 4. There is moderate concentric left ventricular hypertrophy. 5. Overall left ventricular systolic function is normal with, an EF between 55 - 60 %. 6. The right ventricle is mildly enlarged. 7. Normal LA size by volume 22+/-6 ml/m2. 8. The right atrial size is normal. 9. 5.0mg OF Lumason UTLIZED: 2 OR MORE WALL SEGMENTS NOT VISUALIZED. 10. Interatrial and interventricular septum intact. 11. The aortic valve is trileaflet, and appears structurally normal. No aortic stenosis or regurgitat ion. 12. There is trace mitral regurgitation. 13. Mild tricuspid regurgitation present. 14. There is no evidence of pulmonary hypertension. 15. The right ventricular systolic pressure, as measured by Doppler, is 21.59mmHg. 16. Trace/mild (physiologic) pulmonic regurgitation. 17. The aortic root size is normal. 18. Normal inferior vena cava with normal inspiratory collapse consistent with estimated right atrial pressure of 5 mmHg. 19. There is no pericardial effusion. DIRECTOR OF SLEEP: Ayah Lopez RDCS
[2018-11-12] MEDS ORDERED: hydrALAZINE HCL 10 MG TAB PO STA (07:57)
[2018-11-12] MEDS: HYDROCHLOROTHIAZIDE 25 MG TAB PO SCH (10:33)
[2018-11-12] MEDS ORDERED: HEPARIN SODIUM,PORCINE 30 ML 30 ML ONE (12:50)
[2018-11-12] MEDS ORDERED: HEPARIN SODIUM 1,000 UN/ML (10ML VL) ONE (12:50)
[2018-11-12] MEDS ORDERED: LIDOCAINE 1% INJ 10MG/ML (20 ML MDV) ONE (12:50)
[2018-11-12] MEDS ORDERED: VERAPAMIL 2.5 MG/ML 2 ML AMP ONE (12:50)
[2018-11-12] MEDS ORDERED: hydrALAZINE HCL 20 MG/ML 1 ML VIAL ONE (12:57)
[2018-11-12] MEDS ORDERED: MIDAZOLAM (PF) 2 MG/2 ML VIAL IVP ONE (13:00)
[2018-11-12] MEDS ORDERED: LIDOCAINE 1% INJ 10MG/ML (20 ML MDV) SQ ONE (13:01)
[2018-11-12] MEDS ORDERED: IV FLUID CONTINUATION 600 ML IV ONE (13:03)
[2018-11-12] MEDS: VERAPAMIL SYRINGE (5 MG/10 ML) INTRAARTER ONE ×2 (13:03→13:31)
[2018-11-12] MEDS ORDERED: hydrALAZINE HCL 20 MG/ML 1 ML VIAL IV ONE (13:04)
[2018-11-12] MEDS ORDERED: ENALAPRILAT 1.25 MG/ML 1 ML VIAL ONE (13:05)
[2018-11-12] MEDS ORDERED: ENALAPRILAT 1.25 MG/ML 1 ML VIAL IV ONE (13:06)
--- NOTE | 2018-11-12 13:06 | P.PN ---
Subjective Progress Note Date: 11/12/18 Patient seen and examined at bedside denies any chest pain or shortness of breath denies any syncope or lightheadedness, denies any focal weakness slurred speech or headaches or blurry vision. Blood pressure continues to be elevated Zavaleta given a dose of 10 mg of hydralazine Objective - Vital Signs Vital signs: Vital Signs Temp 98.0 F 11/12/18 07:40 Pulse 66 11/12/18 11:49 Resp 16 11/12/18 11:49 BP 161/75 11/12/18 11:49 Pulse Ox 98 11/12/18 11:49 Intake & Output 11/11/18 11/12/18 11/12/18 18:59 06:59 18:59 Intake Total 640 240 Balance 640 240 Weight 135.6 kg Intake: IV 640 240 Sodium Chloride 0.9% 1, 640 240 000 ml @ 80 mls/hr IV . [id number] [facility] Rx#:[id number] Other: Voiding Method Toilet Toilet # Voids 5 1 - Exam Constitutional: No acute distress, conversant, pleasant Eyes: Anicteric sclerae, moist conjunctiva, no lid-lag, PERRLA ENMT: NC/AT,Oropharynx clear, no erythema, exudates Neck:Supple, FROM, no masses, or JVD, No carotid bruits; No thyromegaly Lungs: Clear to auscultation, Clear to percussion, Normal respiratory effort, no accessory muscle use Cardiovascular: Heart regular in rate and rhythm, No murmurs, gallops, or rubs no peripheral edema Abdominal: Soft Nontender, nom distended, no guarding, no rebound or rigidity, Normoactive bowel sounds No hepatomegaly, No splenomegaly, No palpable mass No abdominal wall hernia noted Skin: Normal temperature, tone, texture, turgor, No induration No subcutaneous nodules, No rash, lesions, No ulcers Extremities:No digital cyanosis No clubbing, Pedal pulses intact and symmetrical Radial pulses intact and symmetrical Normal gait and station, No calf tenderness Psychiatric: Alert and oriented to person, place and time, Appropriate affect Intact judgement Neuro: Muscles Strength 5/5 in all 4 extremities, Sensation to light touch grossly present throughout, Cranial nerves II-XII grossly intact. No focal sensory deficits - Labs CBC & Chem 7: 11/10/18 11:50 11/10/18 11:50 Labs: Abnormal Lab Results - Last 24 Hours (Table) 11/11/18 11/11/18 Range/Units 05:42 13:10 D-Dimer 1.83 H (<0.60) mg/L FEU HDL Cholesterol 25 L (40-60) mg/dL Assessment and Plan (1) NSTEMI (non-ST elevated myocardial infarction) Narrative/Plan: * Troponins trending down 0.13, 0.046 and 0.036 with EKG showing left bundle branch block with left axis deviation * Continued on antiplatelet therapy with aspirin and continued on statin therapy with Lipitor echocardiogram showing preserved LVEF * Cardiology consulted planning to take the patient to have left heart catheterization today Current Visit: Yes Status: Acute Code(s): I21.4 - NON-ST ELEVATION (NSTEMI) MYOCARDIAL INFARCTION SNOMED Code(s): 74362894 (2) Accelerated hypertension Narrative/Plan: * Blood pressure elevated today continue to allow some permissive hypertension monitor closely * Blood pressure down to 160 systolically after having hydralazine earlier today continue to monitor * We'll continue Coreg 6.25 mg by mouth twice a day, continue Cozaar 50 mg by mouth twice a day, continue HCTZ Current Visit: Yes Status: Acute Code(s): I10 - ESSENTIAL (PRIMARY) HYPERTENSION SNOMED Code(s): 16761042 (3) Left bundle branch block (LBBB) Current Visit: Yes Status: Acute Code(s): I44.7 - LEFT BUNDLE-BRANCH BLOCK, UNSPECIFIED SNOMED Code(s): 05919025 (4) Syncope Current Visit: Yes Status: Acute Code(s): R55 - SYNCOPE AND COLLAPSE SNOMED Code(s): 718314844
[2018-11-12] MEDS ORDERED: IOPAMIDOL-370 125ML BTL INJ ONE (13:23)
[2018-11-12] MEDS ORDERED: CLOPIDOGREL 75 MG TAB ONE ×2 (13:27)
[2018-11-12] MEDS ORDERED: IOPAMIDOL-370 100ML BTL INJ ONE (13:30)
[2018-11-12] MEDS ORDERED: NITROGLYCERIN SL TABS 0.4 MG TAB SUBLINGUAL PRN (13:34)
[2018-11-12] MEDS ORDERED: ZOLPIDEM 5 MG TAB PO PRN (13:34)
[2018-11-12] MEDS ORDERED: ATROPINE SULFATE 0.1 MG/ML 10ML SYRINGE IV PRN (13:34)
[2018-11-12] MEDS ORDERED: RX INFO: IV CONTRAST WAS GIVEN 1 EACH MISC MISCELLANE PRN (13:34)
[2018-11-12] MEDS ORDERED: MAG HYDROX/AL HYDROX/SIMETH 30 ML CUP PO PRN (13:34)
[2018-11-12] MEDS ORDERED: CLOPIDOGREL 75 MG TAB PO ONE (13:37)
[2018-11-12] MEDS ORDERED: SODIUM CHLORIDE 0.9% 1,000 ML IV SCH (13:45)
[2018-11-12] MEDS ORDERED: ONDANSETRON 4 MG/2 ML VIAL IVP PRN (14:31)
--- NOTE | 2018-11-12 18:06 | CC ---
CARDIAC CATHETERIZATION REPORT DATE OF SERVICE: 11/12/2018 PERFORMING PHYSICIAN: Srikanth Dumont MD, financial services rep. PROCEDURES PERFORMED: 1. Selective right and left coronary angiogram. 2. Left heart catheterization. 3. Successful stenting of the third obtuse marginal branch of the left circumflex using 2.5 x 15 mm Xience drug-eluting stent with good angiographic results. INDICATION: This is a 63-year-old gentleman with hypertension and dyslipidemia who was admitted to the hospital with syncope. He was ruled in for acute wyv-RY-qnlyydvym myocardial infarction. Because of that, heart catheterization was advised. APPROACH: Right radial artery. COMPLICATIONS: None. LEVEL OF SEDATION: Moderate, with sedation length of 33 minutes. PROCEDURE DESCRIPTION: After obtaining informed consent, the patient was brought to the cardiac electroplating laborer. The right radial artery was cannulated using micropuncture technique, and the micropuncture wire passed easily. Then I placed a 6-Monegasque sheath in the right radial artery. After that I did selective right and left coronary angiogram. That was performed using JR4 and JL3.5 catheters. Left heart catheterization was performed using the JR4 catheter, which flipped into the LV. Then I did pullback across the aortic valve. After that I intervened on the left circumflex. Please see separate paragraph for that. SELECTIVE CORONARY ANGIOGRAM: 1. The right coronary artery is a moderate-caliber vessel. It is a dominant vessel and appeared to be angiographically normal. 2. The left main is angiographically normal. It bifurcates into left circumflex and left anterior descending artery. 3. Left circumflex is a large-caliber vessel. It is a nondominant vessel. The proximal circumflex appeared to be angiographically normal. It gives rise to the first obtuse marginal branch, which appeared to have mild disease only. The second obtuse marginal branch appeared to have mild disease only as well. The third obtuse marginal branch appeared to have intermediate disease in the proximal portion and tight lesion in the mid portion. The circumflex continues after that as a large- caliber vessel in the AV groove and distally bifurcates into PDA and PLV branches. 4. The left LAD. The proximal LAD appeared to be angiographically normal. The mid LAD appeared to be normal as well. The LAD distally appeared to be normal. The LAD in the mid portion gives rise to the first and second diagonal branches; both appeared to be angiographically normal. HEMODYNAMICS: The left ventricular end-diastolic pressure was 20 mmHg without significant gradient across the aortic valve. PERCUTANEOUS CORONARY INTERVENTION OF THE LEFT CIRCUMFLEX: Anticoagulation was initiated using heparin with a total of 15,000. The ACT was checked. Subsequently I did engage the left main using JL4 guide. A run-through wire was used to wire the lesion in the third obtuse marginal branch of the left circumflex. After that I did balloon angioplasty using 2.5 x 12 mm balloon before I deployed 2.5 x 15 mm Xience KENTRELL where the stent was positioned under fluoroscopic guidance and deployed under 12 atmospheres for 20 seconds with the following angiogram showing good angiographic results. The procedure was completed without any complication. CONCLUSION: 1. Severe single-vessel coronary artery disease involving the mid third obtuse marginal branch of the left circumflex. There was an intermediate lesion in the proximal portion of that third obtuse marginal branch. 2. Successful stenting of the mid third OM using 2.5 x 15 mm Xience KENTRELL with excellent angiographic results and reduction of stenosis from 90% to 0%. POST-PROCEDURE MANAGEMENT: 1. Dual anti-platelet therapy. 2. Cardiac risk factor modifications. 3. Follow up with the patient. MMODL / IJN: [id number] /
[2018-11-13] MEDS: CARVEDILOL 6.25 MG TAB PO SCH ×2 (07:02→16:37)
[2018-11-13] MEDS: CLOPIDOGREL 75 MG TAB PO SCH (07:58)
[2018-11-13] MEDS: HYDROCHLOROTHIAZIDE 25 MG TAB PO SCH (07:59)
[2018-11-13] MEDS: LOSARTAN 50 MG TAB PO SCH ×2 (07:59→21:22)
[2018-11-13] MEDS: ASPIRIN 81 MG PO SCH (07:59)
[2018-11-13] MEDS ORDERED: amLODIPine 5 MG TAB PO SCH (10:00)
--- NOTE | 2018-11-13 10:02 | P.PN ---
Subjective Progress Note Date: 11/13/18 Patient seen and examined at bedside, has been up and ambulatory down the halls. Blood pressure continues to be elevated as high as 215 systolically this a.m. patient reports some exertional dyspnea but denies any chest pain. Status post left heart catheterization with stenting of the left circumflex artery Objective - Vital Signs Vital signs: Vital Signs Temp 97.4 F L 11/13/18 09:23 Pulse 80 11/13/18 09:39 Resp 18 11/13/18 07:49 BP 216/98 11/13/18 09:39 Pulse Ox 99 11/13/18 09:39 Intake & Output 11/12/18 11/13/18 11/13/18 18:59 06:59 18:59 Intake Total 1270 Balance 1270 Weight 135.4 kg Intake: IV 1030 Sodium Chloride 0.9% 1, 880 000 ml @ 80 mls/hr IV . [id number] JOSE Rx#:[id number] Oral 240 Other: Voiding Method Toilet # Voids 4 1 - Exam Constitutional: No acute distress, conversant, pleasant Eyes: Anicteric sclerae, moist conjunctiva, no lid-lag, PERRLA ENMT: NC/AT,Oropharynx clear, no erythema, exudates Neck:Supple, FROM, no masses, or JVD, No carotid bruits; No thyromegaly Lungs: Clear to auscultation, Clear to percussion, Normal respiratory effort, no accessory muscle use Cardiovascular: Heart regular in rate and rhythm, No murmurs, gallops, or rubs no peripheral edema Abdominal: Soft Nontender, nom distended, no guarding, no rebound or rigidity, Normoactive bowel sounds No hepatomegaly, No splenomegaly, No palpable mass No abdominal wall hernia noted Skin: Normal temperature, tone, texture, turgor, No induration No subcutaneous nodules, No rash, lesions, No ulcers Extremities:No digital cyanosis No clubbing, Pedal pulses intact and symmetrical Radial pulses intact and symmetrical Normal gait and station, No calf tenderness Psychiatric: Alert and oriented to person, place and time, Appropriate affect Intact judgement Neuro: Muscles Strength 5/5 in all 4 extremities, Sensation to light touch grossly present throughout, Cranial nerves II-XII grossly intact. No focal sensory deficits - Labs CBC & Chem 7: 11/10/18 11:50 11/13/18 05:37 Assessment and Plan (1) NSTEMI (non-ST elevated myocardial infarction) Narrative/Plan: * Troponins trending down 0.13, 0.046 and 0.036 with EKG showing left bundle branch block with left axis deviation * Continued on antiplatelet therapy with aspirin and continued on statin therapy with Lipitor echocardiogram showing preserved LVEF 55-60% * Status post stenting of the left circumflex Current Visit: Yes Status: Acute Code(s): I21.4 - NON-ST ELEVATION (NSTEMI) MYOCARDIAL INFARCTION SNOMED Code(s): 49199230 (2) Accelerated hypertension Narrative/Plan: * Blood pressure elevated today * We'll continue Coreg 6.25 mg by mouth twice a day, continue Cozaar 50 mg by mouth twice a day, continue HCTZ and Norvasc added today Current Visit: Yes Status: Acute Code(s): I10 - ESSENTIAL (PRIMARY) HYPERTENSION SNOMED Code(s): 04572764 (3) Presence of stent in coronary artery in patient with coronary artery disease Narrative/Plan: * Status post left heart catheterization with stenting of the left circumflex artery * Continue dual antiplatelet therapy with Plavix and aspirin Current Visit: Yes Status: Acute Code(s): I25.10 - ATHSCL HEART DISEASE OF [place] CORONARY ARTERY W/O ANG PCTRS; Z95.5 - PRESENCE OF CORONARY ANGIOPLASTY IMPLANT AND GRAFT SNOMED Code(s): 293942549 (4) Left bundle branch block (LBBB) Current Visit: Yes Status: Acute Code(s): I44.7 - LEFT BUNDLE-BRANCH BLOCK, UNSPECIFIED SNOMED Code(s): 28319927 (5) Syncope Current Visit: Yes Status: Acute Code(s): R55 - SYNCOPE AND COLLAPSE SNOMED Code(s): 867144575 Plan: * Patient continues to have elevated blood pressures, we'll plan to discharge when they are stable
[2018-11-13 13:23] VITALS: BMI 35.4
[2018-11-13 15:39] VITALS: RESP 16
[2018-11-13] MEDS ORDERED: amLODIPine 5 MG TAB PO STA (16:07)
--- NOTE | 2018-11-13 16:29 | P.PN ---
Subjective Progress Note Date: 11/13/18 This is a pleasant 63-year-old male past medical history significant for hypertension that is untreated by the patient's choice and obesity. He is seen Dr. Dumont in the office approximately one year ago secondary to an episode of chest discomfort. At that time he underwent a Cardiolite stress test that revealed average exercise capacity, rate related left bundle branch block and normal myocardial perfusion imaging. He also underwent an echocardiogram at that time revealing preserved LV systolic function with ejection fraction 55%. We have been asked to see him in consultation secondary to an episode of syncope. He states yesterday afternoon he was walking through his barn when all of a sudden out of nowhere he had an intense sharp pain in his forehead and the next thing he remembers he wakes up on the floor of his barn. He suffered a large hematoma to the back of his head. At his best estimation he thinks he was down for approximately 10-15 minutes but is unclear as this was an unwitnessed event. He denies any symptoms of chest discomfort, shortness of breath, dizziness, palpitations, nausea, vomiting or diaphoresis prior to passing out. When he woke up he states he was extremely disoriented but had no cardiac symptoms other than an ongoing headache. Blood pressure on arrival to the emergency department was 224/117 and 207/102. When he saw Dr. Dumont in the office in 2018 he was recommended antihypertensive therapy however the patient states he did not want to take any medication and we will attempt weight loss. He states his blood pressures are typically well-controlled when he sees his primary care physician in the range of 130 to 140 systolic. He was given a dose of IV labetalol in the emergency department. Blood pressures continued to be elevated in the 170-190 range. 11/13/2018 Patient was taken to the cardiac catheterization lab yesterday where he underwent angioplasty with stent placement of the third obtuse marginal branch of the circumflex. Patient was seen and examined this morning, he's been up ambulating in the hallway, blood pressure remains elevated in the 190-200 systolic range. Some medication adjustments were made and the patient was reevaluated this afternoon. Continues to run blood pressures in the 170-180 systolic range. We will observe him for another 24 hours, initially he was started on Norvasc 5 earlier today we will increase that to 10 mg. Objective - Vital Signs Vital signs: Vital Signs Temp 98.7 F 11/13/18 15:29 Pulse 65 11/13/18 15:29 Resp 16 11/13/18 15:29 BP 176/86 11/13/18 15:29 Pulse Ox 97 11/13/18 15:29 Intake & Output 11/12/18 11/13/18 11/13/18 18:59 06:59 18:59 Intake Total 1270 600 Balance 1270 600 Weight 135.4 kg 135.4 kg Intake: IV 1030 Sodium Chloride 0.9% 1, 880 000 ml @ 80 mls/hr IV . [id number] JOSE Rx#:[id number] Intake, IV Titration 0 Amount Sodium Chloride 0.9% 1, 0 000 ml @ 75 mls/hr IV . [id number] JOSE Rx#:[id number] Oral 240 600 Other: Voiding Method Toilet # Voids 4 1 2 - Exam GENERAL: This is a 63-year-old male in no apparent distress at the time of my examination. HEENT: Head is atraumatic, normocephalic. Pupils are equal, round. Sclerae anicteric. Conjunctivae are clear. Mucous membranes of the mouth are moist. Neck is supple. There is no jugular venous distention. No carotid bruit is heard. LUNGS: Clear to auscultation no wheezes, rales or rhonchi. No chest wall tenderness is noted on palpation or with deep breathing. HEART: Regular rate and rhythm without murmurs, rubs or gallops. S1 and S2 heard. ABDOMEN: Soft, nontender. Bowel sounds are heard. No organomegaly noted. EXTREMITIES: No evidence of peripheral edema and no calf tenderness noted. Right radial site clean and dry, evidence of ecchymosis, no hematoma VASCULAR: Radial and dorsalis pedis pulses palpated, no evidence of clubbing. NEUROLOGIC: Patient is awake, alert and oriented x3. - Labs CBC & Chem 7: 11/10/18 11:50 11/13/18 05:37 Assessment and Plan Plan: ASSESSMENT and plan #1 Syncope #2 Non-ST elevated myocardial infarction, status post successful stenting of the circumflex artery #3 Hypertension, uncontrolled #4 hyperlipidemia Plan This morning the patient was started on Norvasc 5 mg daily, this afternoon we'll increase that to 10 mg daily. We will continue to observe the patient for another 24 hours, possible discharge home in the morning. DNP note has been reviewed, I agree with a documented findings and plan of care. Patient was seen and examined.
[2018-11-13] MEDS ORDERED: Potassium Replacement Protocol 1 EACH MISC MISCELLANE PRN (19:25)
[2018-11-13] MEDS ORDERED: Magnesium Replacement Protocol 1 EACH MISC MISCELLANE PRN (19:25)
[2018-11-13 20:03] LABS: Magnesium 1.9 mg/dL (1.6-2.3); Potassium 4.4 mmol/L (3.5-5.1)
[2018-11-13] MEDS: hydrALAZINE HCL 25 MG TAB PO SCH (21:21)
[2018-11-14] MEDS: CARVEDILOL 6.25 MG TAB PO SCH (06:43)
[2018-11-14] MEDS ORDERED: amLODIPine 10 MG TAB PO SCH (09:00)
[2018-11-14 09:02] VITALS: TEMP 98.1
[2018-11-14] MEDS: hydrALAZINE HCL 25 MG TAB PO SCH (09:09)
[2018-11-14] MEDS: HYDROCHLOROTHIAZIDE 25 MG TAB PO SCH (09:09)
[2018-11-14] MEDS: CLOPIDOGREL 75 MG TAB PO SCH (09:09)
[2018-11-14] MEDS: LOSARTAN 50 MG TAB PO SCH (09:09)
[2018-11-14] MEDS: ASPIRIN 81 MG PO SCH (09:09)
--- NOTE | 2018-11-14 10:38 | PN ---
PROGRESS NOTE Mr. Mckeon is a 63-year-old male who presented with a syncopal episode, had troponin elevation, underwent cardiac catheterization and stenting of the left circumflex by Dr. Dumont. He had an echocardiogram that showed a preserved systolic function. He is feeling well this morning. His blood pressure was elevated yesterday, under better control today. He is ambulating without difficulty. No dizziness. No palpitation. He continues to be on amlodipine 10 mg daily, aspirin once a day, Coreg 6.25 mg twice a day, Plavix 75 mg daily, hydralazine 25 mg twice a day, hydrochlorothiazide 25 mg daily, losartan 50 mg twice a day. PHYSICAL EXAMINATION: Blood pressure running in the 120s with the heart rate in the 60s. LUNGS: Clear. HEART: Regular rate and rhythm. S1, S2. No S3. No rub. ABDOMEN: Soft, nontender. EXTREMITIES: No edema. IMPRESSION: 1. Non ST-segment elevation myocardial infarction and stenting of left circumflex. 2. Syncopal episode. 3. Hypertension. 4. Hyperlipidemia. RECOMMENDATION: Patient should be able to be discharged home today and followed as an outpatient with Dr. Dumont. MMODL / IJN: [id number] /
[2018-11-14 10:54] VITALS: BP 204/94; PULSE 69
== END 2018-11-14 13:07 | disposition home or self-care (01) | DRG 247 ==
LOC: EC 10:59 → 1SOBS 14:50 → OBSVTOIN 11-11 14:15 → 3SCARD 11-11 16:20
PROVIDERS: ADMIT Family Medicine; ATTEND Family Medicine
PROC: B2111ZZ Fluoroscopy of Multiple Coronary Arteries using Low Osmolar Contrast (ICD-10-PCS; 2018-11-12)
PROC: 027034Z Dilation of Coronary Artery, One Artery with Drug-eluting Intraluminal Device, Percutaneous Approach (ICD-10-PCS; principal; 2018-11-12 12:37)
PROC: 4A023N7 Measurement of Cardiac Sampling and Pressure, Left Heart, Percutaneous Approach (ICD-10-PCS; 2018-11-12 12:37)
DX: I21.4 Non-ST elevation (NSTEMI) myocardial infarction (principal); I44.7 Left bundle-branch block, unspecified; E66.9 Obesity, unspecified; I16.0 Hypertensive urgency; R55 Syncope and collapse; E78.5 Hyperlipidemia, unspecified; I25.10 Atherosclerotic heart disease of native coronary artery without angina pectoris; I10 Essential (primary) hypertension; S00.03XA Contusion of scalp, initial encounter; S00.01XA Abrasion of scalp, initial encounter; Z71.3 Dietary counseling and surveillance; Z68.35 Body mass index [BMI] 35.0-35.9, adult; Z84.1 Family history of disorders of kidney and ureter; Z82.49 Family history of ischemic heart disease and other diseases of the circulatory system
CPT/HCPCS: 36415; 70450; 71046; 72125; 80053; 80061; 81003; 82553; 82565; 83735; 84132; 84484; 85025; 85347; 85379; 85610; 85730; 93005; 93306; 93458; 96374; 99285; C1874

== ENCOUNTER → 2018-11-22 | Outpatient (CLI) | payer OTHER ==
--- NOTE | 2018-11-22 10:45 | MR ---
EXAMINATION TYPE: MR brain wo con DATE OF EXAM: 11/22/2018 9:49 AM COMPARISON: NONE HISTORY: Syncope / Cluster headache syndrome FINDINGS: The ventricles, basal cisterns and sulci overlying the cerebral convexities are mildly enlarged. There is evidence of mild periventricular white matter ischemic demyelination. Remote deep white matter insults are also noted. No acute edema is seen on diffusion weighted imaging. There is no evidence for midline shift or mass effect. 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 Acute intracranial hemorrhage or extra-axial collection is not evident. Mild chronic ethmoidal sinusitis as well as small mucus retention cysts of the maxillary sinuses. Mas toid air cells are well-aerated. IMPRESSION: Age-related atrophic and chronic small vessel ischemic change. No acute intracranial process at this time.
== END ==
LOC: RADMRIMAIN 09:01
PROVIDERS: ATTEND Family Medicine
DX: G31.1 Senile degeneration of brain, not elsewhere classified (principal); I67.82 Cerebral ischemia
CPT/HCPCS: 70551

== ENCOUNTER 2019-04-13 19:24 | Emergency (ER) | payer OTHER ==
[2019-04-13 19:30] VITALS: TEMP 98.2
[2019-04-13] MEDS ORDERED: SODIUM CHLORIDE 0.9% 500 ML 500 ML IV STA (19:46)
[2019-04-13] MEDS ORDERED: ASPIRIN 81 MG PO STA (19:46)
--- NOTE | 2019-04-13 19:52 | ED ---
General Adult HPI - General Source: patient Mode of arrival: ambulatory Limitations: no limitations <Palomo Tanner D - Last Filed: 04/13/19 21:06> <Aleisha Darling P - Last Filed: 04/14/19 00:25> - General Chief complaint: Chest Pain Stated complaint: Chest pain Time Seen by Provider: 04/13/19 19:46 - History of Present Illness Initial comments: Dictation was produced using [employer] dictation software. please excuse any grammatical, word or spelling errors. Chief Complaint: 63-year-old male presents with chest pain. History of Present Illness: 63-year-old male presents today with chest pain. Patient states he was at another hospital preferred another individual. While he was talking to one of a family friend he had an episode of chest discomfort with associated diaphoresis and paresthesias to the bilateral jaws. Patient states that he still continues to have some discomfort in his chest. He denies it is pain. He states he has been exerting himself more than usual. He feels like he might have strained a muscle in his left pectoral region. Patient was seen here in October where he had cardiac catheterization and stent placement of obtuse marginal branch. He doesn't have other disease however they were only mild and intermediate. The ROS documented in this emergency department record has been reviewed and confirmed by me. Those systems with pertinent positive or negative responses have been documented in the HPI. All other systems are other negative and/or noncontributory. PHYSICAL EXAM: General Impression: Alert and oriented x3, not in acute distress HEENT: Normocephalic atraumatic, extra-ocular movements intact, pupils equal and reactive to light bilaterally, mucous membranes moist. Cardiovascular: Heart regular rate and rhythm, S1&S2 audible, no murmurs, rubs or gallops Chest: Lungs clear to auscultation bilaterally, no rhonchi, no wheeze, no rales Abdomen: Bowel sounds present, abdomen soft, non-tender, non-distended, no organomegaly Musculoskeletal: Pulses present and equal in all extremities, no peripheral edema Motor: no focal deficits noted Neurological: CN II-XII grossly intact, no focal motor or sensory deficits noted Skin: Intact with no visualized rashes Psych: Normal affect and mood ED course: 63-year-old male presents with atypical chest pain with typical features. As upon arrival shows blood pressure 160/78. Patient has multiple comorbidities including hypertension, non-ST segment elevation [place], coronary artery disease. Laboratory evaluation obtained. CBC, coag panel, metabolic panel is unremarkable. Troponin is negative. Chest x-ray is nonacute. Discussed with patient that I would recommend admitting patient observation because he has significant risk factors with known coronary artery disease that have not had intervention however he would rather prefer half to 2 troponins drawn to determine disposition. Patient's well-appearing at this time. He is connected to the monitor. Patient care will be sent out to Dr. Darling for follow-up of second troponin and determination of final disposition. EKG interpretation: Ventricular rate 66, normal sinus rhythm, left bundle branch block, MS interval 26, QS 192, QTC 486. No MS prolongation, no QTC prolongation, no ST or T-wave changes noted. EKG compared to 11/10/2018 showing no changes. Overall, this EKG is unremarkable (Palomo Tanner) - Related Data Previous Rx's Medication Instructions Recorded Aspirin 81 mg PO DAILY #30 chew 11/13/18 Carvedilol [Coreg] 6.25 mg PO BID-W/MEALS #60 tab 11/13/18 Clopidogrel [Plavix] 75 mg PO DAILY #30 tab 11/13/18 Losartan [Cozaar] 50 mg PO BID #60 tab 11/13/18 Nitroglycerin Sl Tabs [Nitrostat] 0.4 mg SUBLINGUAL Q5M PRN #25 tab 11/13/18 Atorvastatin Calcium [Lipitor] 10 mg PO HS #30 tab 11/14/18 Hydrochlorothiazide [Hydrodiuril] 25 mg PO DAILY #30 tab 11/14/18 amLODIPine [Norvasc] 10 mg PO DAILY #30 tab 11/14/18 Allergies Allergy/AdvReac Type Severity Reaction Status Date / Time No Known Allergies Allergy Verified 04/13/19 19:51 Review of Systems ROS Other: All systems not noted in ROS Statement are negative. <Palomo Tanner - Last Filed: 04/13/19 21:06> ROS Other: All systems not noted in ROS Statement are negative. <Aleisha Darling - Last Filed: 04/14/19 00:25> ROS Statement: Those systems with pertinent positive or pertinent negative responses have been documented in the HPI. Past Medical History Past Medical History: Hypertension, Myocardial Infarction ([place]), Syncope History of Any Multi-Drug Resistant Organisms: None Reported Past Surgical History: Heart Catheterization With Stent, Tonsillectomy Past Anesthesia/Blood Transfusion Reactions: No Reported Reaction Past Psychological History: No Psychological Hx Reported Smoking Status: Never smoker Past Alcohol Use History: None Reported Past Drug Use History: None Reported - Past Family History Father Additional Family Medical History / Comment(s): cabg kidney failure Mother Additional Family Medical History / Comment(s): St judes valve <Palomo Tanner - Last Filed: 04/13/19 21:06> General Exam Limitations: no limitations <Palomo Tanner - Last Filed: 04/13/19 21:06> Course Vital Signs 04/13/19 04/13/19 04/13/19 19:26 21:00 22:00 Temperature 98.2 F Pulse Rate 65 62 59 L Respiratory 18 11 L 11 L Rate Blood Pressure 160/78 159/80 168/93 O2 Sat by Pulse 100 99 94 L Oximetry 04/13/19 23:00 Temperature Pulse Rate 53 L Respiratory 12 Rate Blood Pressure 153/79 O2 Sat by Pulse 95 Oximetry Medical Decision Making - Lab Data Result diagrams: 04/13/19 20:02 04/13/19 20:02 <Palomo Tanner - Last Filed: 04/13/19 21:06> - Lab Data Result diagrams: 04/13/19 20:02 04/13/19 20:02 <Aleisha Darling P - Last Filed: 04/14/19 00:25> - Medical Decision Making Patient care was signed out to me by Dr. Tanner. A 63-year-old gentleman had presented with chest pain, initial troponin was negative, EKG was nonischemic, patient was awaiting repeat troponin. Repeat troponin was again negative. Upon my reevaluation patient reports he's been chest pain-free throughout his stay in the emergency department he has no chest pain shortness breath palpitations or lightheadedness. Patient has established care with Dr. Caruso cardiology. Patient is scheduled to see them next week but will contact the office tomorrow for sooner follow-up. Patient has multiple questions about the multiple antihy pertensives he is on and would like to decrease the number of medications he is on. His blood pressures been well-controlled here in the emergency department he has a three-week log of his recent blood pressures which are all within goal. Advised patient to discuss this with Dr. Caruso. (Aleisha Darling) - Lab Data Lab Results 04/13/19 04/13/19 04/13/19 Range/Units 20:02 20:02 20:02 WBC 4.7 (3.8-10.6) k/uL RBC 4.31 (4.30-5.90) m/uL Hgb 13.5 (13.0-17.5) gm/dL Hct 39.4 (39.0-53.0) % MCV 91.5 (80.0-100.0) fL MCH 31.5 (25.0-35.0) pg MCHC 34.4 (31.0-37.0) g/dL RDW 13.1 (11.5-15.5) % Plt Count 199 (150-450) k/uL Neutrophils % 68 % Lymphocytes % 25 % Monocytes % 4 % Eosinophils % 1 % Basophils % 1 % Neutrophils # 3.2 (1.3-7.7) k/uL Lymphocytes # 1.2 (1.0-4.8) k/uL Monocytes # 0.2 (0-1.0) k/uL Eosinophils # 0.0 (0-0.7) k/uL Basophils # 0.0 (0-0.2) k/uL PT 10.5 (9.0-12.0) sec INR 1.0 (<1.2) APTT 26.7 (22.0-30.0) sec Sodium 138 (137-145) mmol/L Potassium 3.8 (3.5-5.1) mmol/L Chloride 101 (98-107) mmol/L Carbon Dioxide 30 (22-30) mmol/L Anion Gap 7 mmol/L BUN 17 (9-20) mg/dL Creatinine 0.97 (0.66-1.25) mg/dL Est GFR (CKD-EPI)AfAm >90 (>60 ml/min/1.73 sqM) Est GFR (CKD-EPI)NonAf 83 (>60 ml/min/1.73 sqM) Glucose 158 H (74-99) mg/dL Calcium 9.4 (8.4-10.2) mg/dL Magnesium 1.9 (1.6-2.3) mg/dL Total Bilirubin 0.7 (0.2-1.3) mg/dL AST 31 (17-59) U/L ALT 31 (21-72) U/L Alkaline Phosphatase 145 H (38-126) U/L Troponin I (0.000-0.034) ng/mL Total Protein 7.3 (6.3-8.2) g/dL Albumin 4.1 (3.5-5.0) g/dL 04/13/19 04/13/19 Range/Units 20:02 23:04 WBC (3.8-10.6) k/uL RBC (4.30-5.90) m/uL Hgb (13.0-17.5) gm/dL Hct (39.0-53.0) % MCV (80.0-100.0) fL MCH (25.0-35.0) pg MCHC (31.0-37.0) g/dL RDW (11.5-15.5) % Plt Count (150-450) k/uL Neutrophils % % Lymphocytes % % Monocytes % % Eosinophils % % Basophils % % Neutrophils # (1.3-7.7) k/uL Lymphocytes # (1.0-4.8) k/uL Monocytes # (0-1.0) k/uL Eosinophils # (0-0.7) k/uL Basophils # (0-0.2) k/uL PT (9.0-12.0) sec INR (<1.2) APTT (22.0-30.0) sec Sodium (137-145) mmol/L Potassium (3.5-5.1) mmol/L Chloride (98-107) mmol/L Carbon Dioxide (22-30) mmol/L Anion Gap mmol/L BUN (9-20) mg/dL Creatinine (0.66-1.25) mg/dL Est GFR (CKD-EPI)AfAm (>60 ml/min/1.73 sqM) Est GFR (CKD-EPI)NonAf (>60 ml/min/1.73 sqM) Glucose (74-99) mg/dL Calcium (8.4-10.2) mg/dL Magnesium (1.6-2.3) mg/dL Total Bilirubin (0.2-1.3) mg/dL AST (17-59) U/L ALT (21-72) U/L Alkaline Phosphatase (38-126) U/L Troponin I <0.012 0.012 (0.000-0.034) ng/mL Total Protein (6.3-8.2) g/dL Albumin (3.5-5.0) g/dL Disposition <Palomo Tanner - Last Filed: 04/13/19 21:06> Is patient prescribed a controlled substance at d/c from ED?: No <Aleisha Darling P - Last Filed: 04/14/19 00:25> Clinical Impression: Atypical chest pain Disposition: HOME SELF-CARE Condition: Stable Instructions (If sedation given, give patient instructions): Chest Pain (ED) Additional Instructions: Call Dr. Caruso's office tomorrow for follow-up Referrals: Felipe Mar DO [Primary Care Provider] - 1-2 days
[2019-04-13 20:17] LABS: Basophils % (A) 1 %; Eosinophils % (A) 1 %; HCT 39.4 % (39.0-53.0); HGB 13.5 gm/dL (13.0-17.5); Lymphocytes # (A) 1.2 k/uL (1.0-4.8); Lymphocytes % (A) 25 %; MCH 31.5 pg (25.0-35.0); MCHC 34.4 g/dL (31.0-37.0); MCV 91.5 fL (80.0-100.0); Mean Platelet Volume 6.7; Monocytes # (A) 0.2 k/uL (0-1.0); Monocytes % (A) 4 %; Neutrophils # (A) 3.2 k/uL (1.3-7.7); Neutrophils % (A) 68 %; Platelet Count 199 k/uL (150-450); RBC 4.31 m/uL (4.30-5.90); RDW 13.1 % (11.5-15.5); WBC 4.7 k/uL (3.8-10.6)
[2019-04-13 20:30] LABS: ALT 31 U/L (21-72); AST 31 U/L (17-59); African American GFR (CKD) >90 (>60 ml/min/1.73 sqM); Albumin 4.1 g/dL (3.5-5.0); Alkaline Phosphatase 145 U/L (38-126); Anion Gap 7 mmol/L; Blood Urea Nitrogen 17 mg/dL (9-20); Calcium 9.4 mg/dL (8.4-10.2); Carbon Dioxide 30 mmol/L (22-30); Chloride 101 mmol/L (98-107); Glucose 158 mg/dL (74-99); Magnesium 1.9 mg/dL (1.6-2.3); Potassium 3.8 mmol/L (3.5-5.1); Sodium 138 mmol/L (137-145); Total Bilirubin 0.7 mg/dL (0.2-1.3); Total Protein 7.3 g/dL (6.3-8.2)
--- NOTE | 2019-04-13 20:43 | XR ---
EXAMINATION TYPE: XR chest 2V DATE OF EXAM: 04/13/2019 COMPARISON: 11/10/2018 HISTORY: Chest pain TECHNIQUE: Frontal and lateral views of the chest are obtained. FINDINGS: Heart and mediastinum are normal. Lungs are clear. Diaphragm is normal. Bony thorax is int act. There are chest leads. There is some spurring in the thoracic spine. IMPRESSION: No active cardiopulmonary disease. Normal heart. No change.
[2019-04-13 20:47] LABS: Partial Thromboplastin Time 26.7 sec (22.0-30.0); Prothrombin Time 10.5 sec (9.0-12.0)
[2019-04-13 23:26] VITALS: BP 153/79; PULSE 53; RESP 12
== END 2019-04-14 00:47 | disposition home or self-care (01) ==
LOC: EC 19:24
DX: R07.89 Other chest pain (principal); I44.7 Left bundle-branch block, unspecified; I10 Essential (primary) hypertension; I25.119 Atherosclerotic heart disease of native coronary artery with unspecified angina pectoris; Z95.5 Presence of coronary angioplasty implant and graft
CPT/HCPCS: 36415; 71046; 80053; 83735; 84484; 85025; 85610; 85730; 93005; 96360; 96361; 99285

== ENCOUNTER 2019-12-27 21:12 | Observation (INO) | payer MEDICARE, OTHER ==
[2019-12-27] MEDS ORDERED: ASPIRIN 81 MG PO STA (21:59)
[2019-12-27 22:08] LABS: Basophils # (A) 0.1 k/uL (0-0.2); Basophils % (A) 1 %; Eosinophils # (A) 0.1 k/uL (0-0.7); Eosinophils % (A) 2 %; HGB 13.7 gm/dL (13.0-17.5); Lymphocytes # (A) 1.9 k/uL (1.0-4.8); Lymphocytes % (A) 27 %; MCHC 32.5 g/dL (31.0-37.0); MCV 92.2 fL (80.0-100.0); Mean Platelet Volume 8.7; Monocytes # (A) 0.4 k/uL (0-1.0); Monocytes % (A) 5 %; Neutrophils # (A) 4.5 k/uL (1.3-7.7); Neutrophils % (A) 64 %; Platelet Count 197 k/uL (150-450); RBC 4.56 m/uL (4.30-5.90); RDW 13.6 % (11.5-15.5); WBC 7.1 k/uL (3.8-10.6)
[2019-12-27 22:16] LABS: ALT 16 U/L (4-49); AST 29 U/L (17-59); African American GFR (CKD) >90 (>60 ml/min/1.73 sqM); Alkaline Phosphatase 119 U/L (38-126); Anion Gap 6 mmol/L; Blood Urea Nitrogen 16 mg/dL (9-20); Calcium 9.1 mg/dL (8.4-10.2); Carbon Dioxide 27 mmol/L (22-30); Chloride 102 mmol/L (98-107); Glucose 117 mg/dL (74-99); Non-African American GFR(CKD) >90 (>60 ml/min/1.73 sqM); Potassium 3.9 mmol/L (3.5-5.1); Sodium 135 mmol/L (137-145); Total Bilirubin 0.9 mg/dL (0.2-1.3); Total Protein 7.2 g/dL (6.3-8.2)
--- NOTE | 2019-12-27 22:23 | XR ---
EXAMINATION TYPE: XR chest 2V DATE OF EXAM: 12/27/2019 COMPARISON: 04/13/2019 HISTORY: Chest pain TECHNIQUE: FINDINGS: Heart and mediastinum are normal. Lungs are clear. Diaphragm is normal. Bony thorax appears normal. There are chest leads. IMPRESSION: Normal chest. No change.
[2019-12-27] MEDS ORDERED: NALOXONE 0.4 MG/ML 1 ML VIAL IV PRN (22:57)
[2019-12-27] MEDS ORDERED: ONDANSETRON 4 MG/2 ML VIAL IVP PRN (22:57)
--- NOTE | 2019-12-27 23:03 | ED ---
General Adult HPI - General Chief complaint: Chest Pain Stated complaint: Chest Pain Time Seen by Provider: 12/27/19 21:37 Source: patient Mode of arrival: wheelchair Limitations: no limitations - History of Present Illness Initial comments: 64-year-old male patient presents to the emergency department today for evaluation of chest pain. Patient states he's been having aching to his chest and upper back for the last 3-4 days. States he did have a syncopal event on December 23. States that he became very dizzy, passed out and then came to. He did speak to his log haul operator at that time and was scheduled for an echocardiogram and an office visit. Patient states that he persisted to feel unwell so he presented here for further evaluation. Patient is currently pain-free. He does report nausea intermittently with this. States he does have intermittent periods of lightheadedness. Denies any ear pain or fullness. Denies any nasal congestion or drainage. Patient denies any vomiting, abdominal pain. Denies sweats. Denies numbness, tingling, weakness to his extremities. Patient denies any recent rash, fever, chills, cough, diarrhea, constipation, back pain, numbness, tingling, hematuria, dysuria, urinary urgency, urinary frequency, headache, visual changes, or any other complaints. - Related Data Home Medications Medication Instructions Recorded Confirmed Hydrochlorothiazide [Hydrodiuril] 12.5 mg PO DAILY 12/27/19 12/27/19 Previous Rx's Medication Instructions Recorded Aspirin 81 mg PO DAILY #30 chew 11/13/18 Losartan [Cozaar] 50 mg PO BID #60 tab 11/13/18 Atorvastatin Calcium [Lipitor] 10 mg PO HS #30 tab 11/14/18 amLODIPine [Norvasc] 10 mg PO DAILY #30 tab 11/14/18 Allergies Allergy/AdvReac Type Severity Reaction Status Date / Time No Known Allergies Allergy Verified 12/27/19 23:00 Review of Systems ROS Statement: Those systems with pertinent positive or pertinent negative responses have been documented in the HPI. ROS Other: All systems not noted in ROS Statement are negative. Past Medical History Past Medical History: Hypertension, Myocardial Infarction ([place]), Syncope History of Any Multi-Drug Resistant Organisms: None Reported Past Surgical History: Heart Catheterization With Stent, Tonsillectomy Past Anesthesia/Blood Transfusion Reactions: No Reported Reaction Past Psychological History: No Psychological Hx Reported Smoking Status: Never smoker Past Alcohol Use History: None Reported Past Drug Use History: None Reported - Past Family History Father Additional Family Medical History / Comment(s): cabg kidney failure Mother Additional Family Medical History / Comment(s): St judes valve General Exam Limitations: no limitations General appearance: alert, in no apparent distress, other (This is a well- developed, well-nourished adult male patient in no acute distress. Vital signs upon presentation are temperature 98.1F, pulse 74, respirations 18, blood p ressure 166/77, pulse ox 98% on room air) Eye exam: Present: normal appearance, PERRL, EOMI. Absent: scleral icterus, conjunctival injection, periorbital swelling ENT exam: Present: normal exam, normal oropharynx, mucous membranes moist Respiratory exam: Present: normal lung sounds bilaterally. Absent: respiratory distress, wheezes, rales, rhonchi, stridor Cardiovascular Exam: Present: regular rate, normal rhythm, normal heart sounds. Absent: systolic murmur, diastolic murmur, rubs, gallop, clicks GI/Abdominal exam: Present: soft, normal bowel sounds. Absent: distended, tenderness, guarding, rebound, rigid Neurological exam: Present: alert, oriented X3, CN II-XII intact Psychiatric exam: Present: normal affect, normal mood Skin exam: Present: warm, dry, intact, normal color. Absent: rash Course Vital Signs 12/27/19 21:15 Temperature 98.1 F Pulse Rate 74 Respiratory 18 Rate Blood Pressure 166/77 O2 Sat by Pulse 98 Oximetry EKG Findings - EKG Comments: EKG Findings:: EKG obtained at 2136 shows sinus rhythm with occasional PVCs. Left bundle branch block. Ventricular rate is 72, OH interval 186, QRS duration 192, QTc 456, QTc 499. EKG not significantly different from previous. Medical Decision Making - Medical Decision Making 64-year-old male patient with past medical history significant for coronary artery disease with one stent placed last year, hypertension presents to the emergency department today for evaluation of 3-4 days of chest pain with an episode of syncope on December 23. Physical examination is unremarkable. He is neurologically intact with no focal deficits. EKG did show sinus rhythm with a left bundle branch block which is consistent with his previous EKG. Labs review ed and are unremarkable. Initial troponin is negative. Given patient's history and current symptoms admitted to the hospital for further evaluation by cardiology. He will undergo echocardiogram and serial troponins. I did discuss findings and results with him. He verbalizes understanding and agrees with this plan. - Lab Data Result diagrams: 12/27/19 22:01 12/27/19 22:01 Lab Results 12/27/19 12/27/19 12/27/19 Range/Units 22:01 22:01 22:01 WBC 7.1 (3.8-10.6) k/uL RBC 4.56 (4.30-5.90) m/uL Hgb 13.7 (13.0-17.5) gm/dL Hct 42.0 (39.0-53.0) % MCV 92.2 (80.0-100.0) fL MCH 30.0 (25.0-35.0) pg MCHC 32.5 (31.0-37.0) g/dL RDW 13.6 (11.5-15.5) % Plt Count 197 (150-450) k/uL Neutrophils % 64 % Lymphocytes % 27 % Monocytes % 5 % Eosinophils % 2 % Basophils % 1 % Neutrophils # 4.5 (1.3-7.7) k/uL Lymphocytes # 1.9 (1.0-4.8) k/uL Monocytes # 0.4 (0-1.0) k/uL Eosinophils # 0.1 (0-0.7) k/uL Basophils # 0.1 (0-0.2) k/uL PT 10.4 (9.0-12.0) sec INR 1.0 (<1.2) APTT 24.7 (22.0-30.0) sec Sodium 135 L (137-145) mmol/L Potassium 3.9 (3.5-5.1) mmol/L Chloride 102 (98-107) mmol/L Carbon Dioxide 27 (22-30) mmol/L Anion Gap 6 mmol/L BUN 16 (9-20) mg/dL Creatinine 0.89 (0.66-1.25) mg/dL Est GFR (CKD-EPI)AfAm >90 (>60 ml/min/1.73 sqM) Est GFR (CKD-EPI)NonAf >90 (>60 ml/min/1.73 sqM) Glucose 117 H (74-99) mg/dL Calcium 9.1 (8.4-10.2) mg/dL Magnesium 2.0 (1.6-2.3) mg/dL Total Bilirubin 0.9 (0.2-1.3) mg/dL AST 29 (17-59) U/L ALT 16 (4-49) U/L Alkaline Phosphatase 119 (38-126) U/L Troponin I (0.000-0.034) ng/mL Total Protein 7.2 (6.3-8.2) g/dL Albumin 4.0 (3.5-5.0) g/dL Lipase 120 (23-300) U/L 12/27/19 Range/Units 22:01 WBC (3.8-10.6) k/uL RBC (4.30-5.90) m/uL Hgb (13.0-17.5) gm/dL Hct (39.0-53.0) % MCV (80.0-100.0) fL MCH (25.0-35.0) pg MCHC (31.0-37.0) g/dL RDW (11.5-15.5) % Plt Count (150-450) k/uL Neutrophils % % Lymphocytes % % Monocytes % % Eosinophils % % Basophils % % Neutrophils # (1.3-7.7) k/uL Lymphocytes # (1.0-4.8) k/uL Monocytes # (0-1.0) k/uL Eosinophils # (0-0.7) k/uL Basophils # (0-0.2) k/uL PT (9.0-12.0) sec INR (<1.2) APTT (22.0-30.0) sec Sodium (137-145) mmol/L Potassium (3.5-5.1) mmol/L Chloride (98-107) mmol/L Carbon Dioxide (22-30) mmol/L Anion Gap mmol/L BUN (9-20) mg/dL Creatinine (0.66-1.25) mg/dL Est GFR (CKD-EPI)AfAm (>60 ml/min/1.73 sqM) Est GFR (CKD-EPI)NonAf (>60 ml/min/1.73 sqM) Glucose (74-99) mg/dL Calcium (8.4-10.2) mg/dL Magnesium (1.6-2.3) mg/dL Total Bilirubin (0.2-1.3) mg/dL AST (17-59) U/L ALT (4-49) U/L Alkaline Phosphatase (38-126) U/L Troponin I <0.012 (0.000-0.034) ng/mL Total Protein (6.3-8.2) g/dL Albumin (3.5-5.0) g/dL Lipase (23-300) U/L - Radiology Data Radiology results: report reviewed, image reviewed Two-view x-ray of the chest is obtained. Report was reviewed in its entirety. Impression by Dr. Salas shows normal chest no change. Disposition Clinical Impression: Chest pain, Syncope Disposition: ADMITTED IP TO THIS [facility] Condition: Serious Decision to Admit Reason: Admit from EC Decision Date: 12/27/19 Decision Time: 23:03
[2019-12-27 23:05] LABS: Partial Thromboplastin Time 24.7 sec (22.0-30.0); Prothrombin Time 10.4 sec (9.0-12.0)
[2019-12-28] MEDS: LOSARTAN 50 MG TAB PO SCH ×2 (07:58→19:44)
[2019-12-28] MEDS: ASPIRIN 81 MG PO SCH (07:58)
[2019-12-28] MEDS: HYDROCHLOROTHIAZIDE 25 MG TAB PO SCH (07:58)
--- NOTE | 2019-12-28 08:37 | HP ---
HISTORY AND PHYSICAL DATE OF SERVICE: 12/27/2019 CHIEF COMPLAINTS: Chest pain and syncope. HISTORY OF PRESENT ILLNESS: This 64-year-old gentleman with a past medical history of hypertension, myocardial infarction, history of CAD/stent being followed by Dr. Chavarria ) was complaining of chest discomfort. The patient had aching of the chest and upper back for the last 3-4 days. The patient had a syncopal event on December 23. The patient was very dizzy and the patient passed out. The patient does not know how long the patient passed out. The patient was followed by lead trainer and the patient apparently had a Holter monitor also which did not show any other acute abnormality but currently the patient is noted to have occasional PVCs. The patient also been scheduled to have an echocardiogram in the office visit also. There is no history of fever, rigors. No history of any headache at this time. No history of seizures. The patient also reports that the pounding on the on the head after missing a heartbeat past. PAST MEDICAL HISTORY: History of myocardial infarction, syncope, history of CAD/stent. MEDICATIONS ARE: Losartan 50 mg p.o. b.i.d. HydroDIURIL 12.5 mg daily, Lipitor 10 mg, Norvasc 10 mg, aspirin 81 mg. ALLERGIES: None. FAMILY HISTORY: History of CABG, kidney failure. SOCIAL HISTORY: No history of smoking. No history of alcohol intake. REVIEW OF SYSTEMS: ENT No history of diminished hearing or vision. CARDIOVASCULAR As mentioned earlier. RESPIRATORY As mentioned earlier. GI No nausea, vomiting, or diarrhea. No dysuria or hematuria. NERVOUS No numbness or weakness. ALLERGY/IMMUNOLOGY No asthma or hayfever. MUSCULOSKELETAL As mentioned earlier. HEMATOLOGY/ONCOLOGY Negative. ENDOCRINE No history of diabetes or hypothyroidism. CONSTITUTIONAL As mentioned earlier. DERMATOLOGY Negative. RHEUMATOLOGY Negative, PSYCHIATRY As mentioned earlier. PHYSICAL EXAMINATION: Alert and oriented x3. Pulse 59, blood pressure 150/70, respiration 17, temperature 97.4, pulse ox 98% on room air. HEENT: Conjunctivae normal. Oral mucosa moist. NECK: No jugular venous distention. No lymph node enlargement. CARDIOVASCULAR: S1, S2, muffled. No S3, no S4, RESPIRATORY: Diminished breath sounds at the bases. Bilateral scattered rhonchi and crackles. ABDOMEN: Soft, nontender. LEGS: No edema, no swelling. NERVOUS SYSTEM: Higher functions mentioned earlier. Moves all four limbs. No focal motor or sensory deficits. LYMPHATICS: No lymph node in neck or axilla. SKIN: No rash. JOINTS: No active deforming arthropathy. LABS: CBC within normal limits. Sodium 135, glucose 117. ASSESSMENT: 1. Chest pain, possible unstable angina. 2. Syncope, rule out cardiac arrhythmia. 3. Premature ventricular contractions. 4. Hyponatremia. 5. Elevated random blood glucose. 6. History of hypertension. 7. History of coronary artery disease/stent.. 8. History of syncope. 9. Obesity with body mass index of 35.6. 10.FULL CODE. RECOMMENDATIONS AND DISCUSSION: In this 64-year-old gentleman who presented with multiple complex medical issues, we will monitor the patient closely, resume the home medications, orthostatic vitals. Otherwise, continue with telemetry, cardiology consultation, 2D echo with Doppler. Other than that, I would recommend to continue the current medications. Prognosis guarded because of multiple complex medical problems. MMODL / IJN: [id number] /
[2019-12-28] MEDS ORDERED: amLODIPine 10 MG TAB PO SCH (09:00)
--- NOTE | 2019-12-28 11:10 | P.CRDCN ---
History of Present Illness Consult date: 12/28/19 History of present illness: This is a 64-year-old gentleman with history of hypertension and also coronary artery disease who comes here with an episode of syncope. In October 2018, patient presented to the hospital with an episode of syncope. Patient troponins were borderline elevated. He ended up having cardiac catheterization and stent placement of the third OM branch of the circumflex coronary artery. Patient claims that he was sitting in his chair and tried to get up and felt dizzy and had a syncopal episode on December 23. Since then patient has benign some soreness in the left shoulder and chest area. He thinks it's because of the fall and some soft tissue injury from the fall. His blood pressure has been running low. He used to be on several antihypertensive medication including beta jillian. Patient was taken off the beta jillian. He still on amlodipine and losartan and hydrochlorothiazide. His blood pressures have been running about 110 over 60s. His syncopal episode could be related to postural hypotension. Will get orthostatics here. Patient is advised to have knee-high stockings. He may be taken off amlodipine also. Continue to monitor for any postural hypotension. He does have a left bundle branch block with left axis deviation. The possibility of bradyarrhythmias to be considered. Patient should also have outpatient event monitor for a month. As his chest pains appear to be atypical, and Cardec enzymes are negative, patient could be discharged home. Patient could have workup as an outpatient. Review of Systems As per the chart Past Medical History Past Medical History: Hypertension, Myocardial Infarction ([place]), Syncope Last Myocardial Infarction Date:: october 2018 History of Any Multi-Drug Resistant Organisms: None Reported Past Surgical History: Heart Catheterization With Stent, Tonsillectomy Additional Past Surgical History / Comment(s): stent in october of 2018 Past Anesthesia/Blood Transfusion Reactions: No Reported Reaction Date of Last Stent Placement:: october 2018 Past Psychological History: No Psychological Hx Reported Smoking Status: Never smoker Past Alcohol Use History: None Reported Past Drug Use History: None Reported - Past Family History Father Additional Family Medical History / Comment(s): cabg kidney failure Mother Additional Family Medical History / Comment(s): St judes valve Medications and Allergies Home Medications Medication Instructions Recorded Confirmed Type Aspirin 81 mg PO DAILY #30 chew 11/13/18 12/27/19 Rx Losartan [Cozaar] 50 mg PO BID #60 tab 11/13/18 12/27/19 Rx Atorvastatin Calcium [Lipitor] 10 mg PO HS #30 tab 11/14/18 12/27/19 Rx amLODIPine [Norvasc] 10 mg PO DAILY #30 tab 11/14/18 12/27/19 Rx Hydrochlorothiazide [Hydrodiuril] 12.5 mg PO DAILY 12/27/19 12/27/19 History Allergies Allergy/AdvReac Type Severity Reaction Status Date / Time No Known Allergies Allergy Verified 12/27/19 23:00 Physical Exam Vitals: Vital Signs Temp Pulse Pulse Resp BP BP Pulse Ox 12/28/19 07:45 98 F 62 18 147/72 99 12/28/19 04:00 98.1 F 58 L 16 126/67 96 12/28/19 03:27 62 16 12/28/19 00:00 98.2 F 62 16 166/70 97 12/27/19 23:26 97.5 F L 59 L 17 150/75 96 12/27/19 23:06 98.2 F 62 18 166/72 97 12/27/19 21:15 98.1 F 74 18 166/77 98 Intake and Output 12/27/19 12/28/19 12/28/19 22:59 06:59 14:59 Other: Voiding Method Toilet Toilet # Voids 2 1 Weight 136.078 kg 127.4 kg GENERAL EXAM: Patient is alert and oriented and doesn't appear to be in any acute distress HEENT: Normocephalic. Normal reaction of pupils, equal size, normal range of extraocular motion. No erythema or exudates in the throat. NECK: No masses, no nuchal rigidity. CHEST: No chest wall deformity. LUNGS: Equal air entry with no crackles or wheeze. HEART: S1 and S2 normal with no audible mumurs or gallops. Regular rhythm, femorals equal on both sides.. ABDOMEN: No hepatosplenomegaly, normal bowel sounds, no guarding or rigidity. SKIN: No rashes CENTRAL NERVOUS SYSTEM: No focal deficits. EXTREMITIES: No cyanosis, clubbing or edema. Results 12/27/19 22:01 12/27/19 22:01 Cardiac Enzymes 12/27/19 12/27/19 12/27/19 Range/Units 22:01 22:01 23:48 AST 29 (17-59) U/L Troponin I <0.012 0.013 (0.000-0.034) ng/mL 12/28/19 Range/Units 02:47 AST (17-59) U/L Troponin I 0.022 (0.000-0.034) ng/mL Coagulation 12/27/19 Range/Units 22:01 PT 10.4 (9.0-12.0) sec APTT 24.7 (22.0-30.0) sec CBC 12/27/19 Range/Units 22:01 WBC 7.1 (3.8-10.6) k/uL RBC 4.56 (4.30-5.90) m/uL Hgb 13.7 (13.0-17.5) gm/dL Hct 42.0 (39.0-53.0) % Plt Count 197 (150-450) k/uL Comprehensive Metabolic Panel 12/27/19 Range/Units 22:01 Sodium 135 L (137-145) mmol/L Potassium 3.9 (3.5-5.1) mmol/L Chloride 102 (98-107) mmol/L Carbon Dioxide 27 (22-30) mmol/L BUN 16 (9-20) mg/dL Creatinine 0.89 (0.66-1.25) mg/dL Glucose 117 H (74-99) mg/dL Calcium 9.1 (8.4-10.2) mg/dL AST 29 (17-59) U/L ALT 16 (4-49) U/L Alkaline Phosphatase 119 (38-126) U/L Total Protein 7.2 (6.3-8.2) g/dL Albumin 4.0 (3.5-5.0) g/dL Current Medications Generic Name Dose Route Start Last Admin Trade Name Freq PRN Reason Stop Dose Admin Amlodipine Besylate 10 mg 12/28/19 09:00 12/28/19 07:59 Norvasc PO 10 mg DAILY JOSE Administration Aspirin 81 mg 12/28/19 09:00 12/28/19 07:58 Aspirin PO 81 mg DAILY JOSE Administration Atorvastatin Calcium 10 mg 12/28/19 21:00 Lipitor PO HS JOSE Hydrochlorothiazide 12.5 mg 12/28/19 09:00 12/28/19 07:58 Hydrodiuril PO 12.5 mg DAILY JOSE Administration Losartan Potassium 50 mg 12/28/19 09:00 12/28/19 07:58 Cozaar PO 50 mg BID JOSE Administration Naloxone HCl 0.2 mg 12/27/19 22:57 Narcan IV Q2M PRN Opioid Reversal Ondansetron HCl 4 mg 12/27/19 22:57 Zofran IVP Q8HR PRN Nausea And Vomiting Intake and Output 12/27/19 12/28/19 12/28/19 22:59 06:59 14:59 Other: Voiding Method Toilet Toilet # Voids 2 1 Weight 136.078 kg 127.4 kg 12/27/19 22:01 12/27/19 22:01 EKG Interpretations (text) Sinus rhythm with first-degree heart block with long wide QRS duration. There is also left axis deviation Assessment and Plan (1) Chest pain Current Visit: Yes Status: Acute Code(s): R07.9 - CHEST PAIN, UNSPECIFIED SNOMED Code(s): 91257131 (2) Syncope Current Visit: Yes Status: Acute Code(s): R55 - SYNCOPE AND COLLAPSE SNOMED Code(s): 857495020 (3) Hyperlipidemia Current Visit: No Status: Acute Code(s): E78.5 - HYPERLIPIDEMIA, UNSPECIFIED SNOMED Code(s): 27068367 (4) Left bundle branch block (LBBB) Current Visit: No Status: Acute Code(s): I44.7 - LEFT BUNDLE-BRANCH BLOCK, UNSPECIFIED SNOMED Code(s): 34695591 (5) Presence of stent in coronary artery in patient with coronary artery disease Current Visit: No Status: Acute Code(s): I25.10 - ATHSCL HEART DISEASE OF [place] CORONARY ARTERY W/O ANG PCTRS; Z95.5 - PRESENCE OF CORONARY ANGIOPLASTY IMPLANT AND GRAFT SNOMED Code(s): 739800201 Plan: His chest pains appear to be atypical and probably soreness related to the fall and soft tissue injury. Patient had a syncopal episode on December 23. Seem to be related to postural hypotension. We'll continue to monitor his orthostatics. Advised to have knee-high stockings. May also be taken off the amlodipine and further adjust the medication. Does have underlying left bundle-branch block pattern. The possibility of bradyarrhythmia to be considered. Patient to have event monitor as an outpatient. Follow-up with Dr. Caruso as an outpatient.
[2019-12-28] MEDS: METOPROLOL TARTRATE 12.5 MG TAB PO SCH (19:44)
[2019-12-28] MEDS ORDERED: ATORVASTATIN 10 MG TAB PO SCH (21:00)
--- NOTE | 2019-12-29 04:06 | PN ---
PROGRESS NOTE DATE OF SERVICE: 12/28/2019 This 64-year-old gentleman admitted with chest pain also had syncope. Patient also multiple PVCs. Also, no chest pain or palpitation. Cardiology following the patient closely. PHYSICAL EXAMINATION: On exam, the patient is alert and oriented x3. Pulse is 61, blood pressure 145/74, respiration 18, temperature 98.1, pulse ox 98% on room air. HEENT: Conjunctivae normal. NECK: No jugular venous distention. CARDIOVASCULAR: S1, S2 muffled. RESPIRATORY: Breath sounds diminished at the bases. No rhonchi, no crackles. ABDOMEN: Soft, nontender. LEGS: No edema. No swelling. NERVOUS SYSTEM: No focal deficits. LABS: CBC within normal limits. Sodium 135. ASSESSMENT: 1. Chest pain, possible unstable angina. 2. Syncope, rule out cardiac arrhythmia. 3. PVCs on the EKG. 4. Hyponatremia. 5. Elevated random glucose. 6. Hypertension. 7. History of coronary artery disease, stent. 8. History of syncope. 9. Obesity with body mass index of 35.6. 10.FULL CODE. RECOMMENDATIONS AND DISCUSSION: Recommend to continue current medications, continue symptomatic treatment. Otherwise, the electrolytes have been within normal limits. We will closely monitor with Cardiology. Continue with current medications and we will add beta blockers to the current regimen. Guarded prognosis. Further recommendations to follow. MMODL / IJN: [id number] /
[2019-12-29 07:59] LABS: Basophils # (A) 0.1 k/uL (0-0.2); Basophils % (A) 1 %; Eosinophils # (A) 0.1 k/uL (0-0.7); Eosinophils % (A) 2 %; HCT 45.6 % (39.0-53.0); HGB 14.3 gm/dL (13.0-17.5); Lymphocytes # (A) 2.3 k/uL (1.0-4.8); Lymphocytes % (A) 31 %; MCH 29.3 pg (25.0-35.0); MCHC 31.4 g/dL (31.0-37.0); MCV 93.3 fL (80.0-100.0); Mean Platelet Volume 8.2; Monocytes # (A) 0.4 k/uL (0-1.0); Monocytes % (A) 6 %; Neutrophils # (A) 4.4 k/uL (1.3-7.7); Neutrophils % (A) 59 %; Platelet Count 205 k/uL (150-450); RBC 4.88 m/uL (4.30-5.90); RDW 13.7 % (11.5-15.5); WBC 7.4 k/uL (3.8-10.6)
[2019-12-29 08:06] LABS: African American GFR (CKD) >90 (>60 ml/min/1.73 sqM); Anion Gap 7 mmol/L; Blood Urea Nitrogen 14 mg/dL (9-20); Calcium 9.4 mg/dL (8.4-10.2); Carbon Dioxide 30 mmol/L (22-30); Chloride 103 mmol/L (98-107); Glucose 114 mg/dL (74-99); Non-African American GFR(CKD) >90 (>60 ml/min/1.73 sqM); Potassium 4.9 mmol/L (3.5-5.1); Sodium 140 mmol/L (137-145)
[2019-12-29 08:16] VITALS: PULSE 97; TEMP 97.7
[2019-12-29] MEDS: LOSARTAN 50 MG TAB PO SCH (08:34)
[2019-12-29] MEDS: ASPIRIN 81 MG PO SCH (08:34)
[2019-12-29] MEDS: HYDROCHLOROTHIAZIDE 25 MG TAB PO SCH (08:34)
[2019-12-29] MEDS: METOPROLOL TARTRATE 12.5 MG TAB PO SCH (08:34)
--- NOTE | 2019-12-29 10:11 | ECHOF ---
Referral Reason:chf MEASUREMENTS -------- HEIGHT: 182.9 cm WEIGHT: 136.1 kg BP: RVIDd: 3.6 cm (< 3.3) IVSd: 1.2 cm (0.6 - 1.1) LVIDd: 5.6 cm (3.9 - 5.3) LVPWd: 1.2 cm (0.6 - 1.1) IVSs: 1.8 cm LVIDs: 4.4 cm LVPWs: 1.5 cm LA Diam: 4.2 cm (2.7 - 3.8) Ao Diam: 3.0 cm (2.0 - 3.7) AV Cusp: 2.1 cm (1.5 - 2.6) LA Diam: 4.3 cm (2.7 - 3.8) MV EXCURSION: 22.560 mm (> 18.000) MV EF SLOPE: 65 mm/s (70 - 150) EPSS: 1.1 cm MV E Lorenzo: 0.46 m/s MV DecT: 299 ms MV A Lorenzo: 0.49 m/s MV E/A Ratio: 0.95 RAP: 5.00 mmHg RVSP: 21.17 mmHg FINDINGS -------- Sinus rhythm. BBB This was a techncally difficult study with suboptimal views, , Lumason utilized for enhancement of im ages. The left ventricular size is normal. There is mild concentric left ventricular hypertrophy. Overa ll left ventricular systolic function is low-normal with, an EF between 50 - 55 %. The right ventricle is normal in size. The left atrium is mildly dilated. The right atrial size is normal. The aortic valve is trileaflet, and appears structurally normal. No aortic stenosis or regurgitation. The mitral valve is normal. Mild mitral regurgitation is present. Mild tricuspid regurgitation present. Right ventricular systolic pressure is normal at < 35 mmHg. The pulmonic valve was not well visualized. There is no pulmonic regurgitation present. The aortic root size is normal. There is no pericardial effusion. CONCLUSIONS -------- 1. This was a techncally difficult study with suboptimal views, , Lumason utilized for enhancement of images. 2. There is mild concentric left ventricular hypertrophy. 3. Overall left ventricular systolic function is low-normal with, an EF between 50 - 55 %. 4. The left atrium is mildly dilated. 5. The aortic valve is trileaflet, and appears structurally normal. No aortic stenosis or regurgitati on. 6. Mild mitral regurgitation is present. 7. Mild tricuspid regurgitation present. 8. There is no pericardial effusion. [employer] MANAGER: Cassandra Ramirez RDCS
[2019-12-29 11:58] VITALS: BP 129/64; RESP 16
--- NOTE | 2019-12-29 16:36 | P.PN ---
Subjective Progress Note Date: 12/29/19 This is a 64-year-old gentleman who was admitted with recurrent syncope. Patient did not have any Cardiac arrhythmias. No postural hypotension is noted. He is off amlodipine. His blood pressure is fluctuating. Otherwise patient is critically stable. Patient is being discharged home. Amlodipine is being held. He is going to have a event monitor. Follow-up with Dr. Caruso. Objective - Vital Signs Vital signs: Vital Signs Temp 97.7 F 12/29/19 08:00 Pulse 97 12/29/19 11:49 Resp 16 12/29/19 11:49 BP 129/64 12/29/19 11:49 Pulse Ox 98 12/29/19 11:49 Intake & Output 12/28/19 12/29/19 12/29/19 18:59 06:59 18:59 Intake Total 240 180 Balance 240 180 Weight 133.9 kg Intake: Oral 240 180 Other: Voiding Method Toilet Toilet Toilet # Voids 3 2 - Exam GENERAL EXAM: Patient is alert and oriented and doesn't appear to be in any acute distress HEENT: Normocephalic. Normal reaction of pupils, equal size, normal range of extraocular motion. No erythema or exudates in the throat. NECK: No masses, no nuchal rigidity. CHEST: No chest wall deformity. LUNGS: Equal air entry with no crackles or wheeze. HEART: S1 and S2 normal with no audible mumurs or gallops. Regular rhythm, femorals equal on both sides.. ABDOMEN: No hepatosplenomegaly, normal bowel sounds, no guarding or rigidity. SKIN: No rashes CENTRAL NERVOUS SYSTEM: No focal deficits. EXTREMITIES: No cyanosis, clubbing or edema. - Labs CBC & Chem 7: 12/29/19 07:08 12/29/19 07:08 Labs: Abnormal Lab Results - Last 24 Hours (Table) 12/29/19 Range/Units 07:08 Glucose 114 H (74-99) mg/dL Assessment and Plan (1) Chest pain Status: Acute Code(s): R07.9 - CHEST PAIN, UNSPECIFIED SNOMED Code(s): 26626793 (2) Syncope Status: Acute Code(s): R55 - SYNCOPE AND COLLAPSE SNOMED Code(s): 422888085 (3) Hyperlipidemia Status: Acute Code(s): E78.5 - HYPERLIPIDEMIA, UNSPECIFIED SNOMED Code(s): 68396620 (4) Left bundle branch block (LBBB) Status: Acute Code(s): I44.7 - LEFT BUNDLE-BRANCH BLOCK, UNSPECIFIED SNOMED Code(s): 33162210 (5) Presence of stent in coronary artery in patient with coronary artery disease Status: Acute Code(s): I25.10 - ATHSCL HEART DISEASE OF [place] CORONARY ARTERY W/O ANG PCTRS; Z95.5 - PRESENCE OF CORONARY ANGIOPLASTY IMPLANT AND GRAFT SNOMED Code(s): 028668064 Plan: Clinically stable without any recurrence of syncope. Being discharged home. Amlodipine to be held. Patient is going to have event monitor. Follow-up with Dr. Caruso
--- NOTE | 2019-12-30 08:47 | P.DS ---
Providers Date of admission: 12/27/19 22:55 Expected date of discharge: 12/29/19 Attending physician: Dimple Marks Consults: 12/27/19 22:57 Consult Physician Routine Consulting Provider: [facility] Consult Reason/Comments: Chest pain; Dizziness Do you want consulting provider notified?: Yes Primary care physician: [facility] Course: Final diagnosis Chest pain, possible unstable angina Syncope, rule out cardiac arrhythmia PVCs on the EKG Hyponatremia Elevated random glucose hypertension History of coronary artery disease, stent History of syncope next line obesity with a body mass index of 35.6 Full code Discharge disposition Patient is being discharged in a stable condition with guarded prognosis to home. Patient will follow-up with Dr. Mo in the outpatient setting upon discharge. Patient will also follow-up with cardiology Dr. Dumont in the outpatient setting. Total time taken is greater than 35 minutes. History of present illness This is a 64-year-old male who was recently admitted with chest pain and also had syncope and was being closely monitored. Patient was also noted to have multiple PVCs. Cardiology evaluated the patient and made adjustments in medications. During hospitalization patient underwent an echo showing overall left ventricular systolic function is low to normal with an EF between 50 and 55%, with some mild mitral and tricuspid regurgitation present. Patient will be set up with an event monitor for 30 days and follow-up with cardiology closely in the outpatient setting. Patient was originally initiated on low-dose beta jillian although his had problems with bradycardia in the past and patient will not be resuming the beta jillian at this time. Will continue with the event monitor and follow-up with Dr. Dumont in the outpatient setting. Currently no reports of chest pain, shortness of breath, or palpitations. Patient is afebrile. No reports of nausea or vomiting and patient is tolerating diet. Patient will be discharged home today. On exam vital signs are stable. Temp is 97.7F, pulse is 52, respirations are 16, blood pressure is 129/64, oxygen saturation is 98% on room air. Cardio S1, S2 are muffled. Respiratory system shows diminished breath sounds at the bases with no wheezing or rhonchi noted. Abdomen is soft and and non-tender. Nervous system shows no focal deficits. Please refer to medication reconciliation sheet for a list of medications. Patient Condition at Discharge: Stable Plan - Discharge Summary Discharge Rx Participant: No New Discharge Prescriptions: Continue Aspirin 81 mg PO DAILY #30 chew Losartan [Cozaar] 50 mg PO BID #60 tab Atorvastatin Calcium [Lipitor] 10 mg PO HS #30 tab Hydrochlorothiazide [Hydrodiuril] 12.5 mg PO DAILY Discontinued amLODIPine [Norvasc] 10 mg PO DAILY #30 tab Discharge Medication List Aspirin 81 mg PO DAILY #30 chew 11/13/18 [Rx] Losartan [Cozaar] 50 mg PO BID #60 tab 11/13/18 [Rx] Atorvastatin Calcium [Lipitor] 10 mg PO HS #30 tab 11/14/18 [Rx] Hydrochlorothiazide [Hydrodiuril] 12.5 mg PO DAILY 12/27/19 [History] Follow up Appointment(s)/Referral(s): Srikanth Dumont MD [STAFF PHYSICIAN] - 1 Week (as already scheduled/ patient to repo rt to [facility] office upon discharge for placement of cardiac event monitor/ to be there by 2 pm today/ patient aware) Felipe Mar DO [Primary Care Provider] - 1-2 days Patient Instructions/Handouts: Syncope (DC) Activity/Diet/Wound Care/Special Instructions: Activity Limited until follow-up Do not pick up man the prescription for metoprolol Follow-up with primary care provider upon discharge Follow-up with cardiology in the outpatient setting Continue current diet Discharge Disposition: HOME SELF-CARE
== END 2019-12-29 13:36 | disposition home or self-care (01) ==
LOC: EC 21:12 → 3SCARD 22:55
PROVIDERS: ADMIT Hospitalist; ATTEND Hospitalist
DX: R07.89 Other chest pain (principal); Z11.59 Encounter for screening for other viral diseases; E66.9 Obesity, unspecified; E78.5 Hyperlipidemia, unspecified; E87.1 Hypo-osmolality and hyponatremia; I10 Essential (primary) hypertension; I25.10 Atherosclerotic heart disease of native coronary artery without angina pectoris; I25.2 Old myocardial infarction; I44.7 Left bundle-branch block, unspecified; Z68.35 Body mass index [BMI] 35.0-35.9, adult; Z95.5 Presence of coronary angioplasty implant and graft; Z82.49 Family history of ischemic heart disease and other diseases of the circulatory system; Z84.1 Family history of disorders of kidney and ureter; I49.3 Ventricular premature depolarization; R73.09 Other abnormal glucose; I08.1 Rheumatic disorders of both mitral and tricuspid valves; Z79.899 Other long term (current) drug therapy; Z79.82 Long term (current) use of aspirin
CPT/HCPCS: 99285; 36415; 93005; 80053; 80048; 83690; 83735; 84484 ×2; 85025 ×2; 85610; 85730; 71046; G0378 ×3; C8929; U0003; Q9950; 93306

== ENCOUNTER → 2020-01-12 | Day surgery (SDC) | payer MEDICARE, OTHER ==
[2020-01-09 10:05] VITALS: BMI 34.9
[~2020-01-12] MED LIST: SODIUM CHLORIDE 0.9% 1,000 ML IV SCH
[2020-01-12 08:16] VITALS: RESP 18; TEMP 98.3
[2020-01-12 11:43] VITALS: BP 155/73; PULSE 68
--- NOTE | 2020-01-12 17:35 | P.PCN ---
Preoperative Diagnosis: Diagnosis Recurrent syncope Twelve-lead ECG shows sinus rhythm mildly probably. 02 106 ms, left bundle branch block pattern Tilt table test per protocol Baseline blood pressure 160/74 mmHg Baseline heart rate 60 beats a minute Patient was tilted upright at an angle of 70 per protocol blood pressure remained stable heart rate remained stable no symptoms noted The end of the procedure the patient is laid supine Impression Mild prolongation of IN interval with a left bundle branch block on twelve-lead ECG, sinus mechanism Elevated blood pressure readings on tilt table testing No evidence for neurocardiogenic syncope No evidence for dysautonomia
== END ==
LOC: CATHEP 07:47
PROVIDERS: ATTEND Internal Medicine Clinical Cardiac Electrophysiology
DX: I44.7 Left bundle-branch block, unspecified (principal); I25.10 Atherosclerotic heart disease of native coronary artery without angina pectoris; I10 Essential (primary) hypertension; E78.5 Hyperlipidemia, unspecified; Z79.82 Long term (current) use of aspirin; Z79.899 Other long term (current) drug therapy
CPT/HCPCS: 93005; 93660

== ENCOUNTER → 2020-12-14 | Outpatient (CLI) | payer MEDICARE, OTHER ==
--- NOTE | 2020-12-14 14:33 | CT ---
EXAMINATION TYPE: CT sinus wo con DATE OF EXAM: 12/14/2020 COMPARISON: None HISTORY: Chronic sinusitis. C/o pain, drainage CT DLP: 440.[address] of the paranasal sinuses was performed in the axial and coronal planes. Bone and soft tissue settings are submitted. The paranasal sinuses demonstrate normal aeration and development. There is mucous retention cyst or polyp within the right maxillary sinus measuring approximately 2.1 cm. There is some mucosal thickening mild in degree left maxillary sinus and a few scattered ethmoid air cells. The frontal sinuses and sphenoid sinus are well aerated. The osteal meatal units are patent bilaterally. The nasal septum is midline. No bony destructive changes are seen within the field of view. IMPRESSION: Mild changes of chronic sinusitis.
== END | disposition home or self-care (01) ==
LOC: RADCTMAIN 13:41
PROVIDERS: ATTEND Otolaryngology
DX: J32.9 Chronic sinusitis, unspecified (principal)
CPT/HCPCS: 70486

== ENCOUNTER → 2021-04-21 | Outpatient (CLI) | payer MEDICARE, OTHER ==
[2021-04-22 00:02] LABS: Chol/HDL Ratio 4.4 Ratio; HDL Cholesterol 26.6 mg/dL (40.00-60.00); LDL Cholesterol,Calculated 70.4 mg/dL (0.0-131.0)
== END | disposition home or self-care (01) ==
LOC: LABWHC1 09:41
PROVIDERS: ATTEND Internal Medicine Interventional Cardiology
DX: E78.2 Mixed hyperlipidemia (principal)
CPT/HCPCS: 36415; 80061; 84450; 84460

== ENCOUNTER 2021-08-26 22:25 | Inpatient (IN) | payer MEDICARE, OTHER ==
[2021-08-26] MEDS ORDERED: SODIUM CHLORIDE 0.9% 500 ML 500 ML IV STA (22:46)
[2021-08-26] MEDS ORDERED: SODIUM CHLORIDE 0.9% 1,000 ML IV STA (22:46)
--- NOTE | 2021-08-26 22:51 | ED ---
Dizziness HPI - General Chief Complaint: Dizziness Stated Complaint: low heart rate Time Seen by Provider: 08/26/21 22:43 Source: patient, EMS, RN notes reviewed, old records reviewed Mode of arrival: EMS - History of Present Illness Initial Comments: This is a 66-year-old male DF for evaluation today. Patient Dese for evaluation of low heart rate elevated blood pressure. Patient's been feeling dizzy and lightheaded at home. No other complaints no travel history no sick contacts. Does have history of stent placed about 2 years ago and has been having episodes of syncope ever since on known cause of syncope MD Complaint: dizziness, lightheadedness -: days(s) Timing: sudden onset Description: sense of movement, "room spinning", lightheadedness History of Same: Yes History of Trauma: No Severity: moderate Improves With: nothing Worsens With: nothing Associated Symptoms: chest pain (intermittent), syncope (near), weakness - Related Data Home Medications Medication Instructions Recorded Confirmed hydroCHLOROthiazide [Hydrodiuril] 12.5 mg PO DAILY 12/27/19 08/26/21 amLODIPine [Norvasc] 5 mg PO DAILY PRN 08/26/21 08/26/21 Previous Rx's Medication Instructions Recorded Aspirin 81 mg PO DAILY #30 chew 11/13/18 Losartan [Cozaar] 50 mg PO BID #60 tab 11/13/18 Atorvastatin Calcium [Lipitor] 10 mg PO HS #30 tab 11/14/18 Allergies Allergy/AdvReac Type Severity Reaction Status Date / Time No Known Allergies Allergy Verified 08/26/21 23:46 Review of Systems ROS Statement: Those systems with pertinent positive or pertinent negative responses have been documented in the HPI. ROS Other: All systems not noted in ROS Statement are negative. Past Medical History Past Medical History: Hypertension, Myocardial Infarction ([place]), Syncope Last Myocardial Infarction Date:: October 2018 History of Any Multi-Drug Resistant Organisms: None Reported Past Surgical History: Heart Catheterization With Stent, Tonsillectomy Additional Past Surgical History / Comment(s): Stent in October of 2018. Past Anesthesia/Blood Transfusion Reactions: No Reported Reaction Date of Last Stent Placement:: October 2018 Past Psychological History: No Psychological Hx Reported Smoking Status: Never smoker Past Alcohol Use History: None Reported Past Drug Use History: None Reported - Past Family History Father Additional Family Medical History / Comment(s): CABG, kidney failure. Mother Additional Family Medical History / Comment(s): [employer] Valve. General Exam General appearance: alert, in no apparent distress, anxious Head exam: Present: atraumatic, normocephalic, normal inspection Eye exam: Present: normal appearance, PERRL, EOMI. Absent: scleral icterus, conjunctival injection, periorbital swelling ENT exam: Present: normal exam, mucous membranes moist Neck exam: Present: normal inspection. Absent: tenderness, meningismus, lymphadenopathy Respiratory exam: Present: normal lung sounds bilaterally. Absent: respiratory distress, wheezes, rales, rhonchi, stridor Cardiovascular Exam: Present: bradycardia, normal heart sounds. Absent: systolic murmur, diastolic murmur, rubs, gallop, clicks GI/Abdominal exam: Present: soft, normal bowel sounds. Absent: distended, tenderness, guarding, rebound, rigid Extremities exam: Present: normal inspection, full ROM, normal capillary refill. Absent: tenderness, pedal edema, joint swelling, calf tenderness Back exam: Present: normal inspection Neurological exam: Present: alert, oriented X3, CN II-XII intact Psychiatric exam: Present: normal affect, normal mood Skin exam: Present: warm, dry, intact, normal color. Absent: rash Course Vital Signs 08/26/21 22:36 Pulse Rate 31 L Respiratory 18 Rate Blood Pressure 126/72 O2 Sat by Pulse 98 Oximetry - Reevaluation(s) Reevaluation #1: 08/27/21 00:18 medical record is reviewed Reevaluation #2: 08/27/21 00:18 patient's blood pressures beginning to improvethough still high, heart rate remains low Reevaluation #3: 08/27/21 00:18 patient is informed results and questions are answered - Consultations Consultation #1: spoke with Dr. Caruso regarding patient, will see patient morning Consultation #2: woke with Dr. Way patient to the ICU Consultation #3: spoke with [facility] who agrees to admit the patient EKG Findings - EKG Comments: EKG Findings:: EKG shows sinus rhythm a 33 QRS 176 QTC 394 Medical Decision Making - Medical Decision Making 66 male with dizziness and occasional chest discomfort coming from at home low heart rate high blood pressure on his at home blood pressure cuff. Patient does appear to have third-degree heart block here in the emergency department maintaining blood pressure and alert, - Lab Data Result diagrams: 08/26/21 23:01 08/26/21 23:01 Lab Results 08/26/21 08/26/21 08/26/21 Range/Units 23:01 23:01 23:01 WBC 8.3 (3.8-10.6) k/uL RBC 4.66 (4.30-5.90) m/uL Hgb 14.6 (13.0-17.5) gm/dL Hct 44.1 (39.0-53.0) % MCV 94.5 (80.0-100.0) fL MCH 31.2 (25.0-35.0) pg MCHC 33.0 (31.0-37.0) g/dL RDW 14.4 (11.5-15.5) % Plt Count 242 (150-450) k/uL MPV 8.6 Neutrophils % 72 % Lymphocytes % 21 % Monocytes % 4 % Eosinophils % 1 % Basophils % 1 % Neutrophils # 6.0 (1.3-7.7) k/uL Lymphocytes # 1.8 (1.0-4.8) k/uL Monocytes # 0.3 (0-1.0) k/uL Eosinophils # 0.1 (0-0.7) k/uL Basophils # 0.0 (0-0.2) k/uL PT 10.1 (9.0-12.0) sec INR 0.9 (<1.2) APTT 24.7 (22.0-30.0) sec Sodium 137 (137-145) mmol/L Potassium 4.5 (3.5-5.1) mmol/L Chloride 105 (98-107) mmol/L Carbon Dioxide 25 (22-30) mmol/L Anion Gap 7 mmol/L BUN 19 (9-20) mg/dL Creatinine 0.94 (0.66-1.25) mg/dL Est GFR (CKD-EPI)AfAm >90 (>60 ml/min/1.73 sqM) Est GFR (CKD-EPI)NonAf 84 (>60 ml/min/1.73 sqM) Glucose 155 H (74-99) mg/dL Plasma Lactic Acid Thaddeus (0.7-2.0) mmol/L Calcium 9.6 (8.4-10.2) mg/dL Phosphorus 3.7 (2.5-4.5) mg/dL Magnesium 1.9 (1.6-2.3) mg/dL Total Bilirubin 0.6 (0.2-1.3) mg/dL AST 46 (17-59) U/L ALT 34 (4-49) U/L Alkaline Phosphatase 174 H (38-126) U/L Troponin I (0.000-0.034) ng/mL NT-Pro-B Natriuret Pep pg/mL Total Protein 7.0 (6.3-8.2) g/dL Albumin 3.9 (3.5-5.0) g/dL TSH 2.690 (0.465-4.680) mIU/L 08/26/21 08/26/21 08/26/21 Range/Units 23:01 23:01 23:01 WBC (3.8-10.6) k/uL RBC (4.30-5.90) m/uL Hgb (13.0-17.5) gm/dL Hct (39.0-53.0) % MCV (80.0-100.0) fL MCH (25.0-35.0) pg MCHC (31.0-37.0) g/dL RDW (11.5-15.5) % Plt Count (150-450) k/uL MPV Neutrophils % % Lymphocytes % % Monocytes % % Eosinophils % % Basophils % % Neutrophils # (1.3-7.7) k/uL Lymphocytes # (1.0-4.8) k/uL Monocytes # (0-1.0) k/uL Eosinophils # (0-0.7) k/uL Basophils # (0-0.2) k/uL PT (9.0-12.0) sec INR (<1.2) APTT (22.0-30.0) sec Sodium (137-145) mmol/L Potassium (3.5-5.1) mmol/L Chloride (98-107) mmol/L Carbon Dioxide (22-30) mmol/L Anion Gap mmol/L BUN (9-20) mg/dL Creatinine (0.66-1.25) mg/dL Est GFR (CKD-EPI)AfAm (>60 ml/min/1.73 sqM) Est GFR (CKD-EPI)NonAf (>60 ml/min/1.73 sqM) Glucose (74-99) mg/dL Plasma Lactic Acid Thaddeus 1.3 (0.7-2.0) mmol/L Calcium (8.4-10.2) mg/dL Phosphorus (2.5-4.5) mg/dL Magnesium (1.6-2.3) mg/dL Total Bilirubin (0.2-1.3) mg/dL AST (17-59) U/L ALT (4-49) U/L Alkaline Phosphatase (38-126) U/L Troponin I 0.098 H* (0.000-0.034) ng/mL NT-Pro-B Natriuret Pep 186 pg/mL Total Protein (6.3-8.2) g/dL Albumin (3.5-5.0) g/dL TSH (0.465-4.680) mIU/L Critical Care Time Critical Care Time: Yes Total Critical Care Time: 31 Disposition Clinical Impression: Dizziness, Near syncope, Bradycardia, Heart block, Left bundle branch block ( LBBB), Accelerated hypertension, Hypertensive urgency Disposition: ADMITTED IP TO THIS HOSP Condition: Critical Is patient prescribed a controlled substance at d/c from ED?: No Referrals: Felipe Mar DO [Primary Care Provider] - 1-2 days
[2021-08-26 23:21] LABS: Basophils % (A) 1 %; Eosinophils # (A) 0.1 k/uL (0-0.7); Eosinophils % (A) 1 %; HCT 44.1 % (39.0-53.0); HGB 14.6 gm/dL (13.0-17.5); Lymphocytes # (A) 1.8 k/uL (1.0-4.8); Lymphocytes % (A) 21 %; MCH 31.2 pg (25.0-35.0); MCV 94.5 fL (80.0-100.0); Mean Platelet Volume 8.6; Monocytes # (A) 0.3 k/uL (0-1.0); Monocytes % (A) 4 %; Neutrophils % (A) 72 %; Platelet Count 242 k/uL (150-450); RBC 4.66 m/uL (4.30-5.90); RDW 14.4 % (11.5-15.5); WBC 8.3 k/uL (3.8-10.6)
[2021-08-26 23:33] LABS: INR 0.9 (<1.2); Partial Thromboplastin Time 24.7 sec (22.0-30.0); Prothrombin Time 10.1 sec (9.0-12.0)
[2021-08-26 23:35] LABS: ALT 34 U/L (4-49); AST 46 U/L (17-59); African American GFR (CKD) >90 (>60 ml/min/1.73 sqM); Albumin 3.9 g/dL (3.5-5.0); Alkaline Phosphatase 174 U/L (38-126); Anion Gap 7 mmol/L; Blood Urea Nitrogen 19 mg/dL (9-20); Calcium 9.6 mg/dL (8.4-10.2); Carbon Dioxide 25 mmol/L (22-30); Chloride 105 mmol/L (98-107); Glucose 155 mg/dL (74-99); Magnesium 1.9 mg/dL (1.6-2.3); Non-African American GFR(CKD) 84 (>60 ml/min/1.73 sqM); Phosphorus 3.7 mg/dL (2.5-4.5); Potassium 4.5 mmol/L (3.5-5.1); Sodium 137 mmol/L (137-145); Total Bilirubin 0.6 mg/dL (0.2-1.3)
[2021-08-27] MEDS ORDERED: NITROGLYCERIN-D5W PMX 50 MG in DEXTROSE/WATER 1 250ML.BAG IV ONE (00:13)
[2021-08-27] MEDS ORDERED: NALOXONE 0.4 MG/ML 1 ML VIAL IV PRN (00:15)
[2021-08-27] MEDS ORDERED: MORPHINE SULFATE 4 MG/ML SYRINGE IV PRN (00:15)
[2021-08-27] MEDS ORDERED: NITROGLYCERIN SL TABS 0.4 MG TAB SUBLINGUAL STA (01:41)
[2021-08-27 07:26] LABS: Basophils # (A) 0.1 k/uL (0-0.2); Basophils % (A) 1 %; Eosinophils # (A) 0.1 k/uL (0-0.7); Eosinophils % (A) 1 %; Glucose 121 mg/dL (74-99); HCT 41.9 % (39.0-53.0); HGB 13.3 gm/dL (13.0-17.5); Lymphocytes # (A) 2.7 k/uL (1.0-4.8); Lymphocytes % (A) 28 %; MCH 30.3 pg (25.0-35.0); MCHC 31.7 g/dL (31.0-37.0); MCV 95.5 fL (80.0-100.0); Mean Platelet Volume 8.8; Monocytes # (A) 0.5 k/uL (0-1.0); Monocytes % (A) 5 %; Neutrophils # (A) 6.2 k/uL (1.3-7.7); Neutrophils % (A) 64 %; Platelet Count 222 k/uL (150-450); RBC 4.39 m/uL (4.30-5.90); RDW 13.6 % (11.5-15.5); Sodium 139 mmol/L (137-145); WBC 9.7 k/uL (3.8-10.6)
[2021-08-27 07:27] LABS: ALT 29 U/L (4-49); AST 34 U/L (17-59); African American GFR (CKD) >90 (>60 ml/min/1.73 sqM); Albumin 3.3 g/dL (3.5-5.0); Alkaline Phosphatase 129 U/L (38-126); Anion Gap 5 mmol/L; Blood Urea Nitrogen 17 mg/dL (9-20); Calcium 8.8 mg/dL (8.4-10.2); Carbon Dioxide 26 mmol/L (22-30); Chloride 108 mmol/L (98-107); Magnesium 1.9 mg/dL (1.6-2.3); Non-African American GFR(CKD) 85 (>60 ml/min/1.73 sqM); Phosphorus 3.7 mg/dL (2.5-4.5); Potassium 4.4 mmol/L (3.5-5.1); Total Bilirubin 0.7 mg/dL (0.2-1.3); Total Protein 6.3 g/dL (6.3-8.2)
[2021-08-27] MEDS ORDERED: amLODIPine 5 MG TAB PO PRN (10:47)
--- NOTE | 2021-08-27 11:02 | P.HPIM ---
History of Present Illness 66-year-old male came in with comments of dizziness lightheadedness found to be in third-degree heart block. Patient is going for temporary transvenous pacemaker and subsequently permanent pacemaker placement. Patient is mildly el evated troponins patient was already evaluated by cardiology. Patient denied any sick contacts fever chills patient denied any recent travel history. Patient had history of lightheadedness and dizziness has been going on for sometime in the past patient had history of cardiac catheterization and stents in the past patient does have history of hypertension. Patient even had a Holter monitor in the past which did not show any significant abnormality patient had syncopes in the past. REVIEW OF SYSTEMS: CONSTITUTIONAL: No fever, no malaise, no fatigue. HEENT: No recent visual problems or hearing problems. Denied any sore throat. CARDIOVASCULAR: No chest pain, orthopnea, PND, no palpitations, no syncope. PULMONARY: No shortness of breath, no cough, no hemoptysis. GASTROINTESTINAL: No diarrhea, no nausea, no vomiting, no abdominal pain. NEUROLOGICAL: No headaches, no weakness, no numbness. HEMATOLOGICAL: Denies any bleeding or petechiae. GENITOURINARY: Denies any burning micturition, frequency, or urgency. MUSCULOSKELETAL/RHEUMATOLOGICAL: Denies any joint pain, swelling, or any muscle pain. ENDOCRINE: Denies any polyuria or polydipsia. The rest of the 14-point review of systems is negative. PHYSICAL EXAMINATION: GENERAL: The patient is alert and oriented x3, not in any acute distress. Well developed, well nourished. HEENT: Pupils are round and equally reacting to light. EOMI. No scleral icterus. No conjunctival pallor. Normocephalic, atraumatic. No pharyngeal erythema. No thyromegaly. CARDIOVASCULAR: S1 and S2 present. No murmurs, rubs, or gallops. PULMONARY: Chest is clear to auscultation, no wheezing or crackles. ABDOMEN: Soft, nontender, nondistended, normoactive bowel sounds. No palpable organomegaly. MUSCULOSKELETAL: No joint swelling or deformity. EXTREMITIES: No cyanosis, clubbing, or pedal edema. NEUROLOGICAL: Gross neurological examination did not reveal any focal deficits. SKIN: No rashes. Assessment and plan Third-degree heart block with symptoms: Patient is going for pacemaker placement as mentioned above -Mild elevated troponins and cardiology evaluated the patient probably type2 myocardial infarction 7 coronary artery disease -Hypertension -Hyperlipidemia DVT prophylaxis: Lovenox Past Medical History Past Medical History: Coronary Artery Disease (CAD), Hyperlipidemia, Hypertensi on, Myocardial Infarction ([place]), Syncope Last Myocardial Infarction Date:: October 2018 History of Any Multi-Drug Resistant Organisms: None Reported Past Surgical History: Heart Catheterization With Stent, Tonsillectomy Additional Past Surgical History / Comment(s): Stent in October of 2018. Past Anesthesia/Blood Transfusion Reactions: No Reported Reaction Date of Last Stent Placement:: October 2018 Past Psychological History: No Psychological Hx Reported Smoking Status: Never smoker Past Alcohol Use History: None Reported Past Drug Use History: None Reported - Past Family History Father Additional Family Medical History / Comment(s): CABG, kidney failure. Mother Additional Family Medical History / Comment(s): [employer] Judes Valve. Medications and Allergies Home Medications Medication Instructions Recorded Confirmed Type Aspirin 81 mg PO DAILY #30 chew 11/13/18 08/26/21 Rx Losartan [Cozaar] 50 mg PO BID #60 tab 11/13/18 08/26/21 Rx Atorvastatin Calcium [Lipitor] 10 mg PO HS #30 tab 11/14/18 08/26/21 Rx hydroCHLOROthiazide [Hydrodiuril] 12.5 mg PO DAILY 12/27/19 08/26/21 History amLODIPine [Norvasc] 5 mg PO DAILY PRN 08/26/21 08/26/21 History Allergies Allergy/AdvReac Type Severity Reaction Status Date / Time No Known Allergies Allergy Verified 08/26/21 23:46 Physical Exam Vitals: Vital Signs Pulse Pulse Resp BP Pulse Ox 08/27/21 08:40 33 L 8 L 140/65 95 08/27/21 08:30 32 L 17 145/66 95 08/27/21 08:20 33 L 12 145/66 96 08/27/21 08:10 32 L 16 137/66 93 L 08/27/21 08:00 33 L 19 156/70 94 L 08/27/21 07:50 32 L 18 156/70 93 L 08/27/21 07:40 33 L 15 147/63 95 08/27/21 07:30 35 L 13 157/63 97 08/27/21 07:20 34 L 8 L 157/63 96 08/27/21 07:10 37 L 20 128/79 97 08/27/21 07:00 18 127/79 95 08/27/21 06:50 31 L 9 L 134/64 93 L 08/27/21 06:40 33 L 14 137/67 95 08/27/21 06:30 31 L 13 122/61 96 08/27/21 06:20 30 L 8 L 122/61 94 L 08/27/21 06:10 32 L 18 150/71 94 L 08/27/21 06:00 33 L 17 150/71 95 08/27/21 05:50 33 L 14 151/104 97 08/27/21 05:40 34 L 21 156/66 96 08/27/21 05:30 35 L 15 130/56 97 08/27/21 05:20 34 L 19 130/56 95 08/27/21 05:10 29 L 10 L 110/50 95 08/27/21 05:00 32 L 13 101/49 94 L 08/27/21 04:50 33 L 17 101/49 96 08/27/21 04:40 34 L 15 116/45 94 L 08/27/21 04:30 32 L 8 L 124/87 92 L 08/27/21 04:20 40 L 19 125/59 95 08/27/21 04:10 32 L 16 131/59 94 L 08/27/21 04:00 36 L 146/63 92 L 08/27/21 03:50 34 L 18 146/63 93 L 08/27/21 03:40 29 L 17 138/59 93 L 08/27/21 03:30 35 L 18 151/59 91 L 08/27/21 03:20 32 L 24 151/59 93 L 08/27/21 03:10 33 L 17 143/60 94 L 08/27/21 03:00 32 L 14 140/57 96 08/27/21 02:50 33 L 11 L 140/57 94 L 08/27/21 02:40 33 L 12 143/106 96 08/27/21 02:30 24 149/61 95 08/27/21 02:20 32 L 19 149/61 95 08/27/21 01:50 34 L 17 189/74 95 08/27/21 01:40 32 L 20 193/73 94 L 08/27/21 01:30 32 L 21 187/75 92 L 08/27/21 01:20 32 L 23 187/74 08/27/21 01:10 32 L 21 181/74 93 L 08/27/21 01:00 33 L 15 187/74 92 L 08/27/21 00:50 32 L 12 195/67 95 08/27/21 00:40 32 L 12 179/73 94 L 08/27/21 00:30 31 L 21 179/73 93 L 08/27/21 00:20 31 L 18 192/75 08/27/21 00:17 31 L 20 192/75 93 L 08/27/21 00:10 32 L 20 192/75 95 08/27/21 00:00 32 L 19 195/73 94 L 08/26/21 23:50 32 L 19 195/73 93 L 08/26/21 23:40 35 L 13 202/81 96 08/26/21 23:30 30 L 19 202/81 94 L 08/26/21 23:20 33 L 16 186/69 97 08/26/21 23:10 32 L 22 186/69 08/26/21 23:00 33 L 22 177/76 08/26/21 22:50 31 L 22 177/76 08/26/21 22:40 32 L 32 L 19 126/72 99 08/26/21 22:36 31 L 18 126/72 98 08/26/21 22:35 14 98 Intake and Output 08/26/21 08/27/21 08/27/21 22:59 06:59 14:59 Intake Total 547.75 130 Output Total 525 425 Balance 22.75 -295 Intake: IV 520 130 Sodium Chloride 0.9% 1, 520 130 000 ml @ 130 mls/hr IV . Q7H42M STA Rx#:[id number] Intake, IV Titration 27.75 Amount Nitroglycerin-D5w Pmx 50 27.75 mg In Dextrose/Water 1 250ml.bag @ 10 MCG/MIN 3 mls/hr IV .Q24H ONE Rx#: [id number] Output: Urine 525 425 Other: Weight 145.15 kg 145.15 kg Results CBC & Chem 7: 08/27/21 05:38 08/27/21 05:38 Labs: Abnormal Lab Results - Last 24 Hours (Table) 08/26/21 08/26/21 08/27/21 Range/Units 23:01 23:01 05:38 Chloride (98-107) mmol/L Glucose 155 H (74-99) mg/dL Alkaline Phosphatase 174 H (38-126) U/L Troponin I 0.098 H* 0.133 H* (0.000-0.034) ng/mL Albumin (3.5-5.0) g/dL 08/27/21 Range/Units 05:38 Chloride 108 H (98-107) mmol/L Glucose 121 H (74-99) mg/dL Alkaline Phosphatase 129 H (38-126) U/L Troponin I (0.000-0.034) ng/mL Albumin 3.3 L (3.5-5.0) g/dL Thrombosis Risk Factor Assmnt - Choose All That Apply Any of the Below Risk Factors Present?: Yes Each Factor Represents 1 point: Age 41-60 years, Obesity (BMI >25) Each Risk Factor Represents 2 Points: Age 61-74 years Thrombosis Risk Factor Assessment Total Risk Factor Score: 4 Thrombosis Risk Factor Assessment Level: Moderate Risk
[2021-08-27] MEDS ORDERED: IV FLUID CONTINUATION 1,000 ML IV ONE ×2 (11:45)
[2021-08-27] MEDS ORDERED: LIDOCAINE 1% INJ 10MG/ML (20 ML MDV) ONE ×3 (11:49→13:45)
[2021-08-27] MEDS ORDERED: LIDOCAINE 1% INJ 10MG/ML (20 ML MDV) SQ ONE ×4 (12:27→13:35)
[2021-08-27] MEDS ORDERED: ceFAZolin 1 GM in SODIUM CHLORIDE 0.9% IRRIG BTL 250 ML IRRIGATION PRN (12:29)
[2021-08-27] MEDS: MIDAZOLAM 2 MG/2 ML VIAL IV ONE ×5 (12:34→14:27)
--- NOTE | 2021-08-27 13:06 | P.CRDCN ---
History of Present Illness Consult date: 08/27/21 Consult reason: sycope History of present illness: This is Favian Patel NP, I'm dictating on behalf of Dr. Collins's H&P and A&P The patient was interviewed and examined. HPI: [Patient is a pleasant 66-year-old male who initially presented to the hospital with bradycardia and hypertension. Patient states that he was out walking to feed dear, states that he suddenly became short of breath, and noted that he had some chest tightness. He states he started feeling dizzy, and had a near syncopal episode with weakness knees. He stated that this happened after he had admitted to his barn. He was able to get to his house, and he states th at he tried to check his blood pressure, and noted that his heart rate was approximately 33. This prompted him to seek medical attention and he presented to the emergency department. Upon presentation to the emergency department, the patient was found to have third-degree heart block. He was subsequently admitted for possible intervention. Patient has past medical history includes hypertension, GA, syncope, CAD. Has a past surgical history that includes cardiac cath with stent placement, and tonsillectomy. Patient reports that he is a never smoker, denies current alcohol or illicit substance use.] ROS: [No fever, chills, or rigors] [no cough, phlegm, or expectoration] [no nausea, vomiting, or diarrhea] [no hematuria, dysuria] [no musculoskelatal complaints] [no strokes or seizures] [no skin lesions] EXAMINATION: GENERAL: Well-appearing, well-nourished and in no acute distress. NECK: Supple without JVD or thyromegaly. LUNGS: Breath sounds clear to auscultation bilaterally. Respiration equal and unlabored. No wheezes, rales or rhonchi. HEART: The patient is bradycardic with heart rate in the 30s, otherwise no rubs or gallops. S1 and S2 heard. EXTREMITIES: Normal range of motion, no edema. No clubbing or cyanosis. Peripheral pulses intact and strong. REVIEW OF LABS, ECG & MEDICAL DATA: LABS: White count 9.7, hemoglobin 13.3, platelets 242, sodium 139, potassium 4. 4, B1 17, creatinine 0.93, sodium 1.9, troponins 2-0.098, 0.133, BNP 186, TSH 2.69 EKG: Third-degree heart block IMAGING: VITALS: Pulse 59, respirations 80, blood pressure 148/75, O2 saturation 94% on room air IMPRESSION/PLAN: 1. Complete heart block-patient will be scheduled for pacemaker implantation today. Thank you for the consult and allowing us to participate in the care of this patient. Past Medical History Past Medical History: Hypertension, Myocardial Infarction (GA), Syncope Last Myocardial Infarction Date:: October 2018 History of Any Multi-Drug Resistant Organisms: None Reported Past Surgical History: Heart Catheterization With Stent, Tonsillectomy Additional Past Surgical History / Comment(s): Stent in October of 2018. Past Anesthesia/Blood Transfusion Reactions: No Reported Reaction Date of Last Stent Placement:: October 2018 Past Psychological History: No Psychological Hx Reported Smoking Status: Never smoker Past Alcohol Use History: None Reported Past Drug Use History: None Reported - Past Family History Father Additional Family Medical History / Comment(s): CABG, kidney failure. Mother Additional Family Medical History / Comment(s): [employer] Valve. Medications and Allergies Home Medications Medication Instructions Recorded Confirmed Type Aspirin 81 mg PO DAILY #30 chew 11/13/18 08/26/21 Rx Losartan [Cozaar] 50 mg PO BID #60 tab 11/13/18 08/26/21 Rx Atorvastatin Calcium [Lipitor] 10 mg PO HS #30 tab 11/14/18 08/26/21 Rx hydroCHLOROthiazide [Hydrodiuril] 12.5 mg PO DAILY 12/27/19 08/26/21 History amLODIPine [Norvasc] 5 mg PO DAILY PRN 08/26/21 08/26/21 History Allergies Allergy/AdvReac Type Severity Reaction Status Date / Time No Known Allergies Allergy Verified 08/26/21 23:46 Physical Exam Vitals: Vital Signs Pulse Pulse Resp BP Pulse Ox 08/27/21 08:40 33 L 8 L 140/65 95 08/27/21 08:30 32 L 17 145/66 95 08/27/21 08:20 33 L 12 145/66 96 08/27/21 08:10 32 L 16 137/66 93 L 08/27/21 08:00 33 L 19 156/70 94 L 08/27/21 07:50 32 L 18 156/70 93 L 08/27/21 07:40 33 L 15 147/63 95 08/27/21 07:30 35 L 13 157/63 97 08/27/21 07:20 34 L 8 L 157/63 96 08/27/21 07:10 37 L 20 128/79 97 08/27/21 07:00 18 127/79 95 08/27/21 06:50 31 L 9 L 134/64 93 L 08/27/21 06:40 33 L 14 137/67 95 08/27/21 06:30 31 L 13 122/61 96 08/27/21 06:20 30 L 8 L 122/61 94 L 08/27/21 06:10 32 L 18 150/71 94 L 08/27/21 06:00 33 L 17 150/71 95 08/27/21 05:50 33 L 14 151/104 97 08/27/21 05:40 34 L 21 156/66 96 08/27/21 05:30 35 L 15 130/56 97 08/27/21 05:20 34 L 19 130/56 95 08/27/21 05:10 29 L 10 L 110/50 95 08/27/21 05:00 32 L 13 101/49 94 L 08/27/21 04:50 33 L 17 101/49 96 08/27/21 04:40 34 L 15 116/45 94 L 08/27/21 04:30 32 L 8 L 124/87 92 L 08/27/21 04:20 40 L 19 125/59 95 08/27/21 04:10 32 L 16 131/59 94 L 08/27/21 04:00 36 L 146/63 92 L 08/27/21 03:50 34 L 18 146/63 93 L 08/27/21 03:40 29 L 17 138/59 93 L 08/27/21 03:30 35 L 18 151/59 91 L 08/27/21 03:20 32 L 24 151/59 93 L 08/27/21 03:10 33 L 17 143/60 94 L 08/27/21 03:00 32 L 14 140/57 96 08/27/21 02:50 33 L 11 L 140/57 94 L 08/27/21 02:40 33 L 12 143/106 96 08/27/21 02:30 24 149/61 95 08/27/21 02:20 32 L 19 149/61 95 08/27/21 01:50 34 L 17 189/74 95 08/27/21 01:40 32 L 20 193/73 94 L 08/27/21 01:30 32 L 21 187/75 92 L 08/27/21 01:20 32 L 23 187/74 08/27/21 01:10 32 L 21 181/74 93 L 08/27/21 01:00 33 L 15 187/74 92 L 08/27/21 00:50 32 L 12 195/67 95 08/27/21 00:40 32 L 12 179/73 94 L 08/27/21 00:30 31 L 21 179/73 93 L 08/27/21 00:20 31 L 18 192/75 08/27/21 00:17 31 L 20 192/75 93 L 08/27/21 00:10 32 L 20 192/75 95 08/27/21 00:00 32 L 19 195/73 94 L 08/26/21 23:50 32 L 19 195/73 93 L 08/26/21 23:40 35 L 13 202/81 96 08/26/21 23:30 30 L 19 202/81 94 L 08/26/21 23:20 33 L 16 186/69 97 08/26/21 23:10 32 L 22 186/69 08/26/21 23:00 33 L 22 177/76 08/26/21 22:50 31 L 22 177/76 08/26/21 22:40 32 L 32 L 19 126/72 99 08/26/21 22:36 31 L 18 126/72 98 08/26/21 22:35 14 98 Intake and Output 08/26/21 08/27/21 08/27/21 22:59 06:59 14:59 Intake Total 547.75 130 Output Total 525 425 Balance 22.75 -295 Intake: IV 520 130 Sodium Chloride 0.9% 1, 520 130 000 ml @ 130 mls/hr IV . Q7H42M STA Rx#:[id number] Intake, IV Titration 27.75 Amount Nitroglycerin-D5w Pmx 50 27.75 mg In Dextrose/Water 1 250ml.bag @ 10 MCG/MIN 3 mls/hr IV .Q24H ONE Rx#: [id number] Output: Urine 525 425 Other: Weight 145.15 kg 145.15 kg Results 08/27/21 05:38 08/27/21 05:38 Cardiac Enzymes 08/26/21 08/26/21 08/27/21 Range/Units 23:01 23:01 05:38 AST 46 (17-59) U/L Troponin I 0.098 H* 0.133 H* (0.000-0.034) ng/mL 08/27/21 Range/Units 05:38 AST 34 (17-59) U/L Troponin I (0.000-0.034) ng/mL Coagulation 08/26/21 Range/Units 23:01 PT 10.1 (9.0-12.0) sec APTT 24.7 (22.0-30.0) sec CBC 08/26/21 08/27/21 Range/Units 23:01 05:38 WBC 8.3 9.7 (3.8-10.6) k/uL RBC 4.66 4.39 (4.30-5.90) m/uL Hgb 14.6 13.3 (13.0-17.5) gm/dL Hct 44.1 41.9 (39.0-53.0) % Plt Count 242 222 (150-450) k/uL Comprehensive Metabolic Panel 08/26/21 08/27/21 Range/Units 23:01 05:38 Sodium 137 139 (137-145) mmol/L Potassium 4.5 4.4 (3.5-5.1) mmol/L Chloride 105 108 H (98-107) mmol/L Carbon Dioxide 25 26 (22-30) mmol/L BUN 19 17 (9-20) mg/dL Creatinine 0.94 0.93 (0.66-1.25) mg/dL Glucose 155 H 121 H (74-99) mg/dL Calcium 9.6 8.8 (8.4-10.2) mg/dL AST 46 34 (17-59) U/L ALT 34 29 (4-49) U/L Alkaline Phosphatase 174 H 129 H (38-126) U/L Total Protein 7.0 6.3 (6.3-8.2) g/dL Albumin 3.9 3.3 L (3.5-5.0) g/dL Current Medications Generic Name Dose Route Start Last Admin Trade Name Freq PRN Reason Stop Dose Admin Nitroglycerin/Dextrose 50 mg/ 250 mls @ 3 mls/hr 08/27/21 00:13 08/27/21 06:28 IV Solution IV 08/28/21 00:12 10 mcg/min .Q24H ONE 3 mls/hr Titration Protocol 10 MCG/MIN Cefazolin Sodium 1,000 mg/ 50 mls @ 100 mls/hr 08/27/21 09:23 Sodium Chloride IVPB 08/27/21 09:52 ONCE STA Protocol Morphine Sulfate 4 mg 08/27/21 00:15 Morphine Sulfate 4 Mg/Ml Syringe IV Q4HR PRN Pain Scale 8 to 10 Naloxone HCl 0.2 mg 08/27/21 00:15 Naloxone 0.4 Mg/Ml 1 Ml Vial IV Q2M PRN Opioid Reversal Intake and Output 08/26/21 08/27/21 08/27/21 22:59 06:59 14:59 Intake Total 547.75 130 Output Total 525 425 Balance 22.75 -295 Intake: IV 520 130 Sodium Chloride 0.9% 1, 520 130 000 ml @ 130 mls/hr IV . Q7H42M STA Rx#:[id number] Intake, IV Titration 27.75 Amount Nitroglycerin-D5w Pmx 50 27.75 mg In Dextrose/Water 1 250ml.bag @ 10 MCG/MIN 3 mls/hr IV .Q24H ONE Rx#: [id number] Output: Urine 525 425 Other: Weight 145.15 kg 145.15 kg 08/27/21 05:38 08/27/21 05:38
[2021-08-27] MEDS ORDERED: fentaNYL (PF) 50 MCG/ML 2 ML AMP ONE (13:13)
[2021-08-27] MEDS ORDERED: IOPAMIDOL-370 50ML BTL INJ ONE (13:14)
[2021-08-27] MEDS: fentaNYL (PF) 50 MCG/ML 2 ML AMP IV ONE ×2 (13:20→14:27)
--- NOTE | 2021-08-27 13:45 | P.CNPUL ---
History of Present Illness Consult date: 08/27/21 Chief complaint: Third-degree AV block History of present illness: This is a 66-year-old patient with known history of coronary artery disease. The patient underwent a cardiac catheterization and stenting back in 2019. The patient at that time and a single-vessel CAD. The procedure was done by Dr. Caruso. Over the past year or so, the patient has been having episodes of syncope. The patient has had further investigation by cardiology including a Holter monitor and he has also undergone a tilt table test and the results were all negative. He came into the ED yesterday, feeling lightheaded, dizzy, weak and short of breath. He was found to be in third-degree AV block. Currently he is in the intensive care unit. He is awaiting a transvenous temporary pacemaker insertion. He denies having any chest pain. No active hypothyroidism. No history of any intake of beta blockers or any other negative inotropic medications. The patient has no significant cough sputum production chest that is so wheezing. No seizure activity. He is a lifetime nonsmoker. No 69 substance abuse. He is hemodynamically stable. In fact he is hypertensive in the ED. BNP level is at 186, TSH level is at 2.6, troponin 2 are 0.09, creatinine is at 0.9, electrolytes are normal, white cell count is at 9.7 with a hemoglobin of 13.3. EKG is consistent with a daily AV block. Review of Systems Constitutional: Reports fatigue, Reports weakness Eyes: denies as per HPI, denies blurred vision, denies bulging eye, denies decreased vision, denies diplopia, denies discharge, denies dry eye, denies irritation, denies itching, denies pain, denies photophobia, denies loss of peripheral vision, denies loss of vision, denies tunnel vision/blind spots Ears: deny: decreased hearing, ear discharge, earache, tinnitus Ears, nose, mouth and throat: Reports as per HPI Breasts: absent: as per HPI, gynecomastia Cardiovascular: Reports dyspnea on exertion Respiratory: Reports dyspnea Gastrointestinal: Reports as per HPI Genitourinary: Reports as per HPI Musculoskeletal: Reports as per HPI Musculoskeletal: absent: ankle pain, ankle stiffness, ankle swelling, as per HP I, elbow pain, elbow stiffness, elbow swelling, foot pain, foot stiffness, foot swelling, hand pain, hand stiffness, hand swelling, hip pain, hip stiffness, hip swelling, knee pain, knee stiffness, knee swelling, shoulder pain, shoulder stiffness, shoulder swelling, wrist pain, wrist stiffness, wrist swelling Integumentary: Reports as per HPI Neurological: Reports as per HPI (syncope), Reports syncope Psychiatric: Reports as per HPI Endocrine: Reports as per HPI Hematologic/Lymphatic: Reports as per HPI Allergic/Immunologic: Reports as per HPI Past Medical History Past Medical History: Coronary Artery Disease (CAD), Hyperlipidemia, Hypertension, Myocardial Infarction ([place]), Syncope Last Myocardial Infarction Date:: October 2018 History of Any Multi-Drug Resistant Organisms: None Reported Past Surgical History: Heart Catheterization With Stent, Tonsillectomy Additional Past Surgical History / Comment(s): Stent in October of 2018. Past Anesthesia/Blood Transfusion Reactions: No Reported Reaction Date of Last Stent Placement:: October 2018 Past Psychological History: No Psychological Hx Reported Smoking Status: Never smoker Past Alcohol Use History: None Reported Past Drug Use History: None Reported - Past Family History Father Additional Family Medical History / Comment(s): CABG, kidney failure. Mother Additional Family Medical History / Comment(s): [employer] Judes Valve. Medications and Allergies Home Medications Medication Instructions Recorded Confirmed Type Aspirin 81 mg PO DAILY #30 chew 11/13/18 08/26/21 Rx Losartan [Cozaar] 50 mg PO BID #60 tab 11/13/18 08/26/21 Rx Atorvastatin Calcium [Lipitor] 10 mg PO HS #30 tab 11/14/18 08/26/21 Rx hydroCHLOROthiazide [Hydrodiuril] 12.5 mg PO DAILY 12/27/19 08/26/21 History amLODIPine [Norvasc] 5 mg PO DAILY PRN 08/26/21 08/26/21 History Allergies Allergy/AdvReac Type Severity Reaction Status Date / Time No Known Allergies Allergy Verified 08/26/21 23:46 Physical Exam Vitals: Vital Signs Pulse Pulse Resp BP Pulse Ox 08/27/21 08:40 33 L 8 L 140/65 95 08/27/21 08:30 32 L 17 145/66 95 08/27/21 08:20 33 L 12 145/66 96 08/27/21 08:10 32 L 16 137/66 93 L 08/27/21 08:00 33 L 19 156/70 94 L 08/27/21 07:50 32 L 18 156/70 93 L 08/27/21 07:40 33 L 15 147/63 95 08/27/21 07:30 35 L 13 157/63 97 08/27/21 07:20 34 L 8 L 157/63 96 08/27/21 07:10 37 L 20 128/79 97 08/27/21 07:00 18 127/79 95 08/27/21 06:50 31 L 9 L 134/64 93 L 08/27/21 06:40 33 L 14 137/67 95 08/27/21 06:30 31 L 13 122/61 96 08/27/21 06:20 30 L 8 L 122/61 94 L 08/27/21 06:10 32 L 18 150/71 94 L 08/27/21 06:00 33 L 17 150/71 95 08/27/21 05:50 33 L 14 151/104 97 08/27/21 05:40 34 L 21 156/66 96 08/27/21 05:30 35 L 15 130/56 97 08/27/21 05:20 34 L 19 130/56 95 08/27/21 05:10 29 L 10 L 110/50 95 08/27/21 05:00 32 L 13 101/49 94 L 08/27/21 04:50 33 L 17 101/49 96 08/27/21 04:40 34 L 15 116/45 94 L 08/27/21 04:30 32 L 8 L 124/87 92 L 08/27/21 04:20 40 L 19 125/59 95 08/27/21 04:10 32 L 16 131/59 94 L 08/27/21 04:00 36 L 146/63 92 L 08/27/21 03:50 34 L 18 146/63 93 L 08/27/21 03:40 29 L 17 138/59 93 L 08/27/21 03:30 35 L 18 151/59 91 L 08/27/21 03:20 32 L 24 151/59 93 L 08/27/21 03:10 33 L 17 143/60 94 L 08/27/21 03:00 32 L 14 140/57 96 08/27/21 02:50 33 L 11 L 140/57 94 L 08/27/21 02:40 33 L 12 143/106 96 03/05/22 02:30 24 149/61 95 03/05/22 02:20 32 L 19 149/61 95 08/27/21 01:50 34 L 17 189/74 95 08/27/21 01:40 32 L 20 193/73 94 L 08/27/21 01:30 32 L 21 187/75 92 L 08/27/21 01:20 32 L 23 187/74 08/27/21 01:10 32 L 21 181/74 93 L 08/27/21 01:00 33 L 15 187/74 92 L 08/27/21 00:50 32 L 12 195/67 95 08/27/21 00:40 32 L 12 179/73 94 L 08/27/21 00:30 31 L 21 179/73 93 L 08/27/21 00:20 31 L 18 192/75 08/27/21 00:17 31 L 20 192/75 93 L 08/27/21 00:10 32 L 20 192/75 95 08/27/21 00:00 32 L 19 195/73 94 L 08/26/21 23:50 32 L 19 195/73 93 L 08/26/21 23:40 35 L 13 202/81 96 08/26/21 23:30 30 L 19 202/81 94 L 08/26/21 23:20 33 L 16 186/69 97 08/26/21 23:10 32 L 22 186/69 08/26/21 23:00 33 L 22 177/76 08/26/21 22:50 31 L 22 177/76 08/26/21 22:40 32 L 32 L 19 126/72 99 08/26/21 22:36 31 L 18 126/72 98 08/26/21 22:35 14 98 Intake and Output 08/26/21 08/27/21 08/27/21 22:59 06:59 14:59 Intake Total 547.75 130 Output Total 525 425 Balance 22.75 -295 Intake: IV 520 130 Sodium Chloride 0.9% 1, 520 130 000 ml @ 130 mls/hr IV . Q7H42M STA Rx#:[id number] Intake, IV Titration 27.75 Amount Nitroglycerin-D5w Pmx 50 27.75 mg In Dextrose/Water 1 250ml.bag @ 10 MCG/MIN 3 mls/hr IV .Q24H ONE Rx#: [id number] Output: Urine 525 425 Other: Weight 145.15 kg 145.15 kg GENERAL: The patient is alert and oriented x3, not in any acute distress. Well developed, well nourished. The patient is currently on room air oxygen Head exam was generally normal. There was no scleral icterus or corneal arcus. Mucous membranes were moist. HEENT: Pupils are round and equally reacting to light. EOMI. No scleral icterus. No conjunctival pallor. Normocephalic, atraumatic. No pharyngeal erythema. No thyromegaly. CARDIOVASCULAR: S1 and S2 present. No murmurs, rubs, or gallops. PULMONARY: Chest is clear to auscultation, no wheezing or crackles. ABDOMEN: Soft, nontender, nondistended, normoactive bowel sounds. No palpable organomegaly. MUSCULOSKELETAL: No joint swelling or deformity. EXTREMITIES: No cyanosis, clubbing, or pedal edema. NEUROLOGICAL: Gross neurological examination did not reveal any focal deficits. Examination of the skin revealed no evidence of significant rashes, suspicious appearing nevi or other concerning lesions. Results - Laboratory Findings CBC and BMP: 08/27/21 05:38 08/27/21 05:38 PT/INR, D-dimer PT 10.1 sec (9.0-12.0) 08/26/21 23:01 INR 0.9 (<1.2) 08/26/21 23:01 Abnormal lab findings: Abnormal Labs 08/26/21 08/26/21 08/27/21 23:01 23:01 05:38 Chloride Glucose 155 H Alkaline Phosphatase 174 H Troponin I 0.098 H* 0.133 H* Albumin 08/27/21 05:38 Chloride 108 H Glucose 121 H Alkaline Phosphatase 129 H Troponin I Albumin 3.3 L - Diagnostic Findings Chest x-ray: image reviewed Assessment and Plan Plan: 1 symptomatic third-degree AV block, awaiting a temporary transvenous pacemaker insertion, hypertensive, yet, hemodynamically stable. 2 coronary artery disease with previous stenting of the LAD 3 obesity BMI 39 4 hypertension 5 hyperlipidemia 6 history of syncope with negative workup 7 troponin leak Plan Proceed with insertion of a temporary transvenous pacemaker with a possibility of permanent pacemaker later stage Repeat echocardiogram Restart Cozaar 50 mg twice a day and amlodipine 5 mg by mouth daily and gradually wean off the nitroglycerin drip We'll monitor the patient in intensive care unit.
--- NOTE | 2021-08-27 15:20 | P.EPPROC ---
- EP Procedure Note Electrophysiology Procedure Note: Transvenous temporary pacing procedure Indication for the procedure: Severe underlying bradycardia secondary to third- degree heart block with recurrent syncope Patient was brought to the EP lab in a fasting state. Written informed consent was obtained prior to the procedure. The right groin was prepped and draped as a protocol. A 6-Icelandic sheath was placed in the right femoral vein. Via this, a temporary pacing catheter was placed in the right ventricle. Thresholds were interrogated. Temporary pacing was performed through the rest of the procedure. At the end of the entire procedure, the TVP was removed. The sheath was removed and hemostasis was assured. Patient tolerated the procedure well without any acute complications. Procedure performed Transvenous temporary pacing Left upper extremity venogram 10 mL every dye injected in the left arm Patent left axillary and subclavian vein system Plan Proceed with dual-chamber pacemaker implantation Procedure Dual-chamber pacemaker implantation, Medtronic, successful See separate note Removal of TVP under fluoroscopy Under fluoroscopy a transvenous temporary pacemaker lead was removed Vascade hemostasis applied, good hemostasis Patient underwent EP procedure under conscious sedation/moderate sedation, monitoring of the level of consciousness and physiologic parameters including but not limited to vital signs and oxygenation. Patient tolerated the procedure well without any acute complications. Start time:1225 Stop time: 1500
--- NOTE | 2021-08-27 15:22 | P.EPPROC ---
- EP Procedure Note Electrophysiology Procedure Note: Diagnosis Symptomatic bradycardia with syncope, secondary to third-degree heart block Procedure Dual-chamber pacemaker implantation, Medtronic device Details Patient was brought to the EP lab in a fasting state. Written informed consent was obtained prior to the procedure. Conscious sedation provided. IV antibiotics administered. Local anesthesia administered. A 4 cm incision made in the pectoral area. Subfascial pocket made. Venous accesses obtained Venous sheaths placed. Leads placed in the right heart Atrial lead position the right atrial appendage. Active fix lead 52 cm Medtronic P waves 2.6 mV excellent current of injury, pacing impedance 608 ohms and pacing threshold 0.5 V at 0.4 ms RV lead position in the RV apex. Active fix lead, 58 cm Medtronic Sensed R waves 4.5 mV, pacing impedance 627 ohms, good control injury, pacing threshold 0.75 ohms 0.4 ms Device services program manager, Medtronic Dual-chamber pacemaker device connected to the leads and placed in the subfascial pocket Patient tolerated the procedure well without acute complications Pacemaker programming: DDD 50 to 130 ppm
[2021-08-27] MEDS ORDERED: ACETAMINOPHEN TAB 325 MG TAB PO PRN (15:25)
[2021-08-27] MEDS ORDERED: ACETAMINOPHEN IV (For NPO) 1,000 MG in EMPTY BAG 1 BAG IVPB ONE (15:25)
[2021-08-27] MEDS: amLODIPine 10 MG TAB PO SCH (15:58)
[2021-08-27] MEDS: LOSARTAN 50 MG TAB PO SCH ×2 (15:58→20:40)
[2021-08-27] MEDS ORDERED: ATORVASTATIN 10 MG TAB PO SCH (21:00)
[2021-08-28 04:49] VITALS: TEMP 98.3
--- NOTE | 2021-08-28 05:18 | XR ---
EXAMINATION TYPE: XR chest 1V portable DATE OF EXAM: 08/28/2021 COMPARISON: NONE HISTORY: 12/27/2019 TECHNIQUE: 2 views FINDINGS: Heart is normal. Lungs are clear of consolidation. There are no hilar masses. There is left axillary pacemaker. There is no heart failure. IMPRESSION: No active cardiopulmonary disease. No adverse change.
[2021-08-28 07:57] LABS: Basophils # (A) 0.1 k/uL (0-0.2); Basophils % (A) 1 %; Eosinophils # (A) 0.3 k/uL (0-0.7); Eosinophils % (A) 2 %; HCT 44.1 % (39.0-53.0); HGB 14.2 gm/dL (13.0-17.5); Lymphocytes # (A) 1.9 k/uL (1.0-4.8); Lymphocytes % (A) 18 %; MCH 30.6 pg (25.0-35.0); MCHC 32.2 g/dL (31.0-37.0); Mean Platelet Volume 8.5; Monocytes # (A) 0.5 k/uL (0-1.0); Monocytes % (A) 5 %; Neutrophils # (A) 7.3 k/uL (1.3-7.7); Neutrophils % (A) 72 %; Platelet Count 209 k/uL (150-450); RBC 4.64 m/uL (4.30-5.90); RDW 13.6 % (11.5-15.5); WBC 10.2 k/uL (3.8-10.6)
[2021-08-28 08:11] LABS: ALT 21 U/L (4-49); AST 28 U/L (17-59); African American GFR (CKD) >90 (>60 ml/min/1.73 sqM); Albumin 3.7 g/dL (3.5-5.0); Alkaline Phosphatase 115 U/L (38-126); Anion Gap 7 mmol/L; Blood Urea Nitrogen 13 mg/dL (9-20); Calcium 8.4 mg/dL (8.4-10.2); Carbon Dioxide 26 mmol/L (22-30); Chloride 105 mmol/L (98-107); Glucose 136 mg/dL (74-99); Magnesium 1.8 mg/dL (1.6-2.3); Non-African American GFR(CKD) >90 (>60 ml/min/1.73 sqM); Potassium 4.1 mmol/L (3.5-5.1); Sodium 138 mmol/L (137-145); Total Bilirubin 0.9 mg/dL (0.2-1.3); Total Protein 6.9 g/dL (6.3-8.2)
[2021-08-28] MEDS: amLODIPine 10 MG TAB PO SCH (08:33)
[2021-08-28] MEDS: LOSARTAN 50 MG TAB PO SCH (08:33)
[2021-08-28] MEDS ORDERED: ASPIRIN 81 MG PO SCH (09:00)
[2021-08-28] MEDS ORDERED: hydroCHLOROthiazide 12.5 MG CAP PO SCH (10:30)
--- NOTE | 2021-08-28 11:08 | P.DS ---
Providers Date of admission: 08/27/21 00:15 Attending physician: Dimple Marks Consults: 08/27/21 00:15 Consult Physician Routine Consulting Provider: Kristian Way Consult Reason/Comments: icu Do you want consulting provider notified?: Yes Consult Physician Routine Consulting Provider: Srikanth Dumont Consult Reason/Comments: helga Do you want consulting provider notified?: Yes Primary care physician: [facility] Course: 66-year-old male came in with comments of dizziness lightheadedness found to be in third-degree heart block. Patient is going for temporary transvenous pacemaker and subsequently permanent pacemaker placement. Patient is mildly elevated troponins patient was already evaluated by cardiology. Patient denied any sick contacts fever chills patient denied any recent travel history. Patient had history of lightheadedness and dizziness has been going on for sometime in the past patient had history of cardiac catheterization and stents in the past patient does have history of hypertension. Patient even had a Holter monitor in the past which did not show any significant abnormality patient had syncopes in the past. 08/28/2021 Patient had a permanent pacemaker placed patient is clinically doing well will be discharged today. Norvasc was added by cardiology patient will be discharged on Norvasc and patient will check his blood pressure at home take it to his PCP and general expeditor as an outpatient PHYSICAL EXAMINATION: GENERAL: The patient is alert and oriented x3, not in any acute distress. Well developed, well nourished. HEENT: Pupils are round and equally reacting to light. EOMI. No scleral icterus. No conjunctival pallor. Normocephalic, atraumatic. No pharyngeal erythema. No thyromegaly. CARDIOVASCULAR: S1 and S2 present. No murmurs, rubs, or gallops. PULMONARY: Chest is clear to auscultation, no wheezing or crackles. ABDOMEN: Soft, nontender, nondistended, normoactive bowel sounds. No palpable organomegaly. MUSCULOSKELETAL: No joint swelling or deformity. EXTREMITIES: No cyanosis, clubbing, or pedal edema. NEUROLOGICAL: Gross neurological examination did not reveal any focal deficits. SKIN: No rashes. Assessment and plan Third-degree heart block with symptoms: Had permanent pacemaker -Mild elevated troponins and cardiology evaluated the patient probably type2 myocardial infarction coronary artery disease -Hypertension -Hyperlipidemia Patient Condition at Discharge: Critical Plan - Discharge Summary Discharge Rx Participant: Yes New Discharge Prescriptions: New traMADol HCl [Ultram] 50 mg PO Q4HR PRN 3 Days #18 tab PRN Reason: Pain amLODIPine [Norvasc] 10 mg PO DAILY #30 tab Continue Aspirin 81 mg PO DAILY #30 chew Losartan [Cozaar] 50 mg PO BID #60 tab Atorvastatin Calcium [Lipitor] 10 mg PO HS #30 tab hydroCHLOROthiazide [Hydrodiuril] 12.5 mg PO DAILY Discontinued amLODIPine [Norvasc] 5 mg PO DAILY PRN PRN Reason: BP OVER 150 Discharge Medication List Aspirin 81 mg PO DAILY #30 chew 11/13/18 [Rx] Losartan [Cozaar] 50 mg PO BID #60 tab 11/13/18 [Rx] Atorvastatin Calcium [Lipitor] 10 mg PO HS #30 tab 11/14/18 [Rx] hydroCHLOROthiazide [Hydrodiuril] 12.5 mg PO DAILY 12/27/19 [History] amLODIPine [Norvasc] 10 mg PO DAILY #30 tab 08/28/21 [Rx] traMADol HCl [Ultram] 50 mg PO Q4HR PRN 3 Days #18 tab 08/28/21 [Rx] Follow up Appointment(s)/Referral(s): Felipe Mar DO [Primary Care Provider] - 3 Days Discharge Disposition: HOME SELF-CARE
[2021-08-28 11:13] VITALS: BP 167/75; PULSE 64; RESP 16
--- NOTE | 2021-08-28 12:47 | P.PN ---
Subjective Progress Note Date: 08/28/21 This is Favian easley NP, I'm dictating on behalf of Dr. Collins's H&P and A&P. Patient was interviewed and examined. Patient is a pleasant 66-year-old male who initially presented to the hospital with bradycardia and hypertension. Patient was found to have complete heart block, and had a pacemaker implanted yesterday. Patient today is found sitting in bed upright. He reports he feels markedly better than he did yesterday before the pacemaker. His heart rate is maintaining in the 60s. He is somewhat hypertensive. Patient has not been restarted on all of his antihypertensive medications. Recommend continuing losartan, amlodipine, and restarting hydrochlorothiazide today. From a cardiology standpoint, the patient may be discharged home after receiving his antibiotics. GENERAL: Well-appearing, well-nourished and in no acute distress. NECK: Supple without JVD or thyromegaly. LUNGS: Breath sounds clear to auscultation bilaterally. Respiration equal and unlabored. No wheezes, rales or rhonchi. HEART: Regular rate and rhythm without murmurs, rubs or gallops. S1 and S2 heard. EXTREMITIES: Normal range of motion, no edema. No clubbing or cyanosis. Peripheral pulses intact and strong. VITALS: Pulse 64, respirations 16, blood pressure 167/75, O2 saturation 98% on room air TELEMETRY: Primarily ventricular paced rhythm LABS: White count 10.2, hemoglobin 14.2, platelets 209, sodium 138, potassium 4.1, B1 13, creatinine 0.82, magnesium 1.8 IMPRESSION/PLAN: 1. Complete heart block-after the implantation of the pacemaker, the patient's heart rate has returned to normal. Patient is currently maintaining in the 60s. Patient is no longer symptomatic. 2. Hypertension-continue losartan 50 mg twice a day. Continue amlodipine 10 mg daily. Restart hydrochlorothiazide 12.5 mg daily. 3. Status post pacemaker implantation-maintain dressing over pacemaker for one week. Do not lift arm above your head, move it behind your back. Lift no more than 5 pounds. No significant use of a chainsaw for arc welding. From a cardiology standpoint the patient may be discharged after receiving his IV antibiotics today. Objective - Vital Signs Vital signs: Vital Signs Temp 98.3 F 08/28/21 04:00 Pulse 64 08/28/21 10:00 Resp 16 08/28/21 10:00 BP 167/75 08/28/21 10:00 Pulse Ox 98 08/28/21 10:00 Intake & Output 08/27/21 08/28/21 08/28/21 18:59 06:59 18:59 Intake Total 1825 1010 360 Output Total 595 1950 700 Balance 1230 -940 -340 Weight 145.6 kg Intake: IV 1315 50 Sodium Chloride 0.9% 1, 615 000 ml @ 130 mls/hr IV . Q7H42M STA Rx#:[id number] ceFAZolin 2 gm In Sodium 50 Chloride 0.9% 50 ml @ 100 mls/hr IVPB ONCE PRN Rx# :[id number] Intake, IV Titration 150 Amount ACETAMINOPHEN IV (For NPO 100 ) 1,000 mg In Empty Bag 1 bag @ 400 mls/hr IVPB ONCE ONE Rx#:[id number] ceFAZolin 2 gm In Sodium 50 Chloride 0.9% 50 ml @ 100 mls/hr IVPB Q6H [facility] Rx#: [id number] Oral 360 960 360 Output: Urine 595 1950 700 Other: Voiding Method Urinal Urinal # Voids 1 0 - Labs CBC & Chem 7: 08/28/21 07:18 08/28/21 07:18 Labs: Abnormal Lab Results - Last 24 Hours (Table) 08/28/21 Range/Units 07:18 Glucose 136 H (74-99) mg/dL
--- NOTE | 2021-08-28 12:51 | P.PN ---
Subjective Progress Note Date: 08/28/21 Patient is doing well. No complaints. The patient is post pacemaker insertion. Current rhythm is paced. Hemodynamically stable. He is on room air oxygen. No syncope. No chest pain. No altered mentation. Blood work shows a hemoglobin of 14.2 with a white cell count of 10.2. BUN is at 30 mg and of 0.8. Chest x-ray shows no evidence of any pneumothorax. No acute cardio pulmonary abnormalities. Objective - Vital Signs Vital signs: Vital Signs Temp 98.3 F 08/28/21 04:00 Pulse 64 08/28/21 10:00 Resp 16 08/28/21 10:00 BP 167/75 08/28/21 10:00 Pulse Ox 98 08/28/21 10:00 Intake & Output 08/27/21 08/28/21 08/28/21 18:59 06:59 18:59 Intake Total 1825 1010 360 Output Total 595 1950 700 Balance 1230 -940 -340 Weight 145.6 kg Intake: IV 1315 50 Sodium Chloride 0.9% 1, 615 000 ml @ 130 mls/hr IV . Q7H42M [facility] Rx#:[id number] ceFAZolin 2 gm In Sodium 50 Chloride 0.9% 50 ml @ 100 mls/hr IVPB ONCE PRN Rx# :[id number] Intake, IV Titration 150 Amount ACETAMINOPHEN IV (For NPO 100 ) 1,000 mg In Empty Bag 1 bag @ 400 mls/hr IVPB ONCE ONE Rx#:[id number] ceFAZolin 2 gm In Sodium 50 Chloride 0.9% 50 ml @ 100 mls/hr IVPB Q6H [facility] Rx#: [id number] Oral 360 960 360 Output: Urine 595 1950 700 Other: Voiding Method Urinal Urinal # Voids 1 0 - Exam GENERAL: The patient is alert and oriented x3, not in any acute distress. Well developed, well nourished. The patient is currently on room air oxygen Head exam was generally normal. There was no scleral icterus or corneal arcus. Mucous membranes were moist. HEENT: Pupils are round and equally reacting to light. EOMI. No scleral icterus. No conjunctival pallor. Normocephalic, atraumatic. No pharyngeal erythema. No thyromegaly. CARDIOVASCULAR: S1 and S2 present. No murmurs, rubs, or gallops. The patient has a pacemaker pocket of the left anterior chest area which is dry clean and intact PULMONARY: Chest is clear to auscultation, no wheezing or crackles. ABDOMEN: Soft, nontender, nondistended, normoactive bowel sounds. No palpable organomegaly. MUSCULOSKELETAL: No joint swelling or deformity. EXTREMITIES: No cyanosis, clubbing, or pedal edema. NEUROLOGICAL: Gross neurological examination did not reveal any focal deficits. Examination of the skin revealed no evidence of significant rashes, suspicious appearing nevi or other concerning lesions. - Labs CBC & Chem 7: 08/28/21 07:18 08/28/21 07:18 Labs: Abnormal Lab Results - Last 24 Hours (Table) 08/28/21 Range/Units 07:18 Glucose 136 H (74-99) mg/dL Assessment and Plan Plan: 1 symptomatic third-degree AV block, the patient is post permanent pacemaker insertion, postop day #1. Hemodynamically stable. No complications. 2 coronary artery disease with previous stenting of the LAD 3 obesity BMI 39 4 hypertension 5 hyperlipidemia 6 history of syncope with negative workup 7 troponin leak Plan Pacemaker was inserted without any complications Hemodynamically stable Repeat echocardiogram to be completed Resume all medication Transferred out of the intensive care unit, possibly home today
== END 2021-08-28 12:21 | disposition home or self-care (01) | DRG 244 ==
LOC: EC 22:25 → 2SICU 08-27 00:15
PROVIDERS: ADMIT Hospitalist; ATTEND Hospitalist
PROC: 02HK3JZ Insertion of Pacemaker Lead into Right Ventricle, Percutaneous Approach (ICD-10-PCS; 2021-08-27)
PROC: 02H63JZ Insertion of Pacemaker Lead into Right Atrium, Percutaneous Approach (ICD-10-PCS; 2021-08-27)
PROC: 5A1223Z Performance of Cardiac Pacing, Continuous (ICD-10-PCS; 2021-08-27)
PROC: 0JH606Z Insertion of Pacemaker, Dual Chamber into Chest Subcutaneous Tissue and Fascia, Open Approach (ICD-10-PCS; principal; 2021-08-27 11:30)
DX: I44.2 Atrioventricular block, complete (principal); R00.1 Bradycardia, unspecified; I25.10 Atherosclerotic heart disease of native coronary artery without angina pectoris; I10 Essential (primary) hypertension; I16.0 Hypertensive urgency; E78.5 Hyperlipidemia, unspecified; R79.89 Other specified abnormal findings of blood chemistry; E03.9 Hypothyroidism, unspecified; I25.2 Old myocardial infarction; Z79.82 Long term (current) use of aspirin; Z79.899 Other long term (current) drug therapy; Z95.0 Presence of cardiac pacemaker; Z95.5 Presence of coronary angioplasty implant and graft
CPT/HCPCS: 33208; 36415; 71045; 80053; 83605; 83735; 83880; 84100; 84443; 84484; 85025; 85610; 85730; 93005; 96361; 96365; 99291

== ENCOUNTER 2021-09-03 14:51 | Emergency (ER) | payer MEDICARE, OTHER ==
[2021-09-03 15:00] VITALS: TEMP 98.8
--- NOTE | 2021-09-03 17:45 | ED ---
General Adult HPI - General Chief complaint: Extremity Injury, Upper Stated complaint: Possible Blood Clot in Left Arm Time Seen by Provider: 09/03/21 15:13 Source: patient Mode of arrival: wheelchair Limitations: no limitations - History of Present Illness Initial comments: Patient is a 66-year-old male who presents to the emergency department with a [facility] complaint of left arm swelling and pain since yesterday. Patient reports that 2 days ago his left hand was swollen but he thought it was due to IV insertion into the left hand during his recent hospital visit at [facility] on 08/27/21 for pacemaker insertion. The left hand swelling resolved however yesterday patient noticed increased swelling and pain of the left elbow region. The swelling and pain initially improved but patient woke up today with the swelling and pain which was were persistent throughout the day and concerned the patient. Patient reports the area feels warm. He states he is able to move his left lower without limitation. He does note that during his hospital stay for pacemaker insertion several staff had trouble drawing blood from that region of the arm and therefore he was poked several times. Patient denies other concerns at this time including fever, chills, headache, shortness of breath, cough, chest pain, abdominal pain, nausea, and vomiting. He denies a history of DVT, pulmonary embolism, and recent infection. - Related Data Home Medications Medication Instructions Recorded Confirmed hydroCHLOROthiazide [Hydrodiuril] 12.5 mg PO DAILY 12/27/19 08/26/21 Previous Rx's Medication Instructions Recorded Aspirin 81 mg PO DAILY #30 chew 11/13/18 Losartan [Cozaar] 50 mg PO BID #60 tab 11/13/18 Atorvastatin Calcium [Lipitor] 10 mg PO HS #30 tab 11/14/18 amLODIPine [Norvasc] 10 mg PO DAILY #30 tab 08/28/21 traMADol HCl [Ultram] 50 mg PO Q4HR PRN 3 Days #18 tab 08/28/21 Allergies Allergy/AdvReac Type Severity Reaction Status Date / Time No Known Allergies Allergy Verified 09/03/21 15:00 Review of Systems ROS Statement: Those systems with pertinent positive or pertinent negative responses have been documented in the HPI. ROS Other: All systems not noted in ROS Statement are negative. Past Medical History Past Medical History: Coronary Artery Disease (CAD), Hyperlipidemia, Hypertension, Myocardial Infarction ([place]), Syncope Last Myocardial Infarction Date:: October 2018 History of Any Multi-Drug Resistant Organisms: None Reported Past Surgical History: Heart Catheterization With Stent, Pacemaker, Tonsillectomy Additional Past Surgical History / Comment(s): Stent in October of 2018. Past Anesthesia/Blood Transfusion Reactions: No Reported Reaction Date of Last Stent Placement:: October 2018 Past Psychological History: No Psychological Hx Reported Smoking Status: Never smoker Past Alcohol Use History: None Reported Past Drug Use History: None Reported - Past Family History Father Additional Family Medical History / Comment(s): CABG, kidney failure. Mother Additional Family Medical History / Comment(s): [employer] Valve. General Exam Limitations: no limitations General appearance: alert, in no apparent distress Eye exam: Present: normal appearance, PERRL, EOMI. Absent: scleral icterus, conjunctival injection, periorbital swelling Neck exam: Present: normal inspection Respiratory exam: Present: normal lung sounds bilaterally. Absent: respiratory distress, wheezes, rales, rhonchi, stridor Cardiovascular Exam: Present: regular rate, normal rhythm, normal heart sounds, other (Pacemaker insertion site positive for mild ecchymosis. No erythema, swelling, or pain with palpation). Absent: systolic murmur, diastolic murmur, rubs, gallop, clicks GI/Abdominal exam: Present: soft. Absent: distended, tenderness Left Upper Arm exam: Present: normal inspection, full ROM. Absent: tenderness, swelling Elbow exam: Present: full ROM, swelling (Anteriorly and medially with no erythema), erythema. Absent: normal inspection, tenderness Forearm Wrist exam: Present: normal inspection, full ROM. Absent: tenderness, swelling Hand Wrist exam: Present: normal inspection, full ROM. Absent: tenderness, swelling Vascular: Present: normal capillary refill Neurological exam: Present: alert, oriented X3, CN II-XII intact Psychiatric exam: Present: normal affect, normal mood Skin exam: Present: warm, dry, intact, normal color. Absent: rash Course Vital Signs 09/03/21 14:57 Temperature 98.8 F Pulse Rate 71 Respiratory 20 Rate Blood Pressure 193/85 O2 Sat by Pulse 100 Oximetry Medical Decision Making - Medical Decision Making This is a 66-year-old male with recent pacemaker insertion who presents with increased pain and swelling of the medial antecubital region of the left arm since yesterday. Thorough history and examination were performed. Patient is afebrile. Physical exam reveals mild swelling of the medial antecubital region of the left elbow with no erythema or tenderness with palpation. There is mild ecchymosis around the pacemaker insertion site with no erythema, swelling, or tenderness with palpation. Venous doppler of the left upper extremity reveals a superficial thrombus in the basilic vein. I did speak with ultrasound who state that the clot is > 2 cm from the brachial vein. Results discussed with patient. Patient instructed to stop his baby aspirin for 1 week and instead take 325 mg of aspirin daily. He is instructed to use warm compress on the swollen region, elevate the left arm as much as possible, and schedule a repeat left upper extremity ultrasound for 1 week from now with his primary care provider. Return parameters discussed. Patient verbalizes understanding and is agreeable to plan. Dr. Rivera is my attending. Disposition Clinical Impression: Superficial thrombophlebitis of arm Disposition: HOME SELF-CARE Condition: Good Instructions (If sedation given, give patient instructions): Superficial Thrombophlebitis (ED) Additional Instructions: Please take 325 mg of aspirin daily for the superficial clot in your left arm. Use warm compress for 20 minutes 4 times a day on the swollen area of the arm and keep arm elevated as much as possible. Schedule a repeat ultrasound for 1 week from now. Return to the emergency department if you experience new, concerning, or worsening symptoms including but not limited to increased pain, redness, and swelling around the area or chest pain, palpitations, and shortness of breath. Is patient prescribed a controlled substance at d/c from ED?: No Referrals: Felipe Mar DO [Primary Care Provider] - 1-2 days Time of Disposition: 18:37
--- NOTE | 2021-09-03 18:01 | US ---
EXAMINATION TYPE: US venous doppler duplex UE LT DATE OF EXAM: 09/03/2021 COMPARISON: NONE CLINICAL HISTORY: swelling/redness/pain in antecubital region. Pain left elbow area. SIDE PERFORMED: Left. Left Arm: Thrombus visualized in left Basilic vain. IMPRESSION: There is superficial thrombus in the basilic vein. There is venous flow demonstrated in the subclavia n vein and brachial vein. There is patency of the left jugular vein. No deep vein thrombosis in the l eft arm.
[2021-09-03 18:56] VITALS: BP 140/82; PULSE 69; RESP 18
== END 2021-09-03 18:55 | disposition home or self-care (01) ==
LOC: EC 14:51
DX: I80.8 Phlebitis and thrombophlebitis of other sites (principal); I25.2 Old myocardial infarction; I10 Essential (primary) hypertension; Z79.899 Other long term (current) drug therapy
CPT/HCPCS: 99283

== ENCOUNTER 2022-01-30 05:51 | Day surgery (SDC) | payer MEDICARE, OTHER ==
[2022-01-26 10:00] VITALS: BMI 32.8
[~2022-01-30 05:51] MED LIST changes: +ALPRAZolam 0.25 MG TAB PO PRN; +ALPRAZolam 0.5 MG TAB PO PRN; +NITROGLYCERIN SL TABS 0.4 MG TAB SUBLINGUAL PRN; -SODIUM CHLORIDE 0.9% 1,000 ML IV SCH
[2022-01-30] MEDS ORDERED: ASPIRIN 81 MG ONE (06:16)
[2022-01-30] MEDS: SODIUM CHLORIDE 0.9% 1,000 ML in EMPTY BAG 1 BAG IV SCH ×3 (06:25→23:49)
[2022-01-30 06:40] LABS: Basophils % (A) 1 %; Eosinophils # (A) 0.1 k/uL (0-0.7); Eosinophils % (A) 1 %; HCT 44.5 % (39.0-53.0); HGB 14.2 gm/dL (13.0-17.5); Lymphocytes # (A) 1.9 k/uL (1.0-4.8); Lymphocytes % (A) 27 %; MCH 29.8 pg (25.0-35.0); MCHC 31.8 g/dL (31.0-37.0); MCV 93.7 fL (80.0-100.0); Mean Platelet Volume 8.4; Monocytes # (A) 0.4 k/uL (0-1.0); Monocytes % (A) 6 %; Neutrophils # (A) 4.4 k/uL (1.3-7.7); Neutrophils % (A) 64 %; Platelet Count 220 k/uL (150-450); RBC 4.75 m/uL (4.30-5.90); RDW 13.7 % (11.5-15.5); WBC 6.9 k/uL (3.8-10.6)
[2022-01-30] MEDS ORDERED: ASPIRIN 325 MG TAB PO ONE (07:00)
[2022-01-30] MEDS ORDERED: ATORVASTATIN 80 MG TAB PO ONE (07:00)
[2022-01-30] MEDS ORDERED: HEPARIN SODIUM,PORCINE 10,000 UNIT in SODIUM CHLORIDE 0.9% 1,000 ML IRRIGATION PRN (07:00)
[2022-01-30] MEDS ORDERED: HEPARIN SODIUM,PORCINE 2,500 UNIT in SODIUM CHLORIDE 0.9% 250 ML IRRIGATION PRN (07:00)
[2022-01-30 07:02] LABS: African American GFR (CKD) >90 (>60 ml/min/1.73 sqM); Anion Gap 9 mmol/L; Blood Urea Nitrogen 17 mg/dL (9-20); Calcium 9.3 mg/dL (8.4-10.2); Carbon Dioxide 24 mmol/L (22-30); Chloride 105 mmol/L (98-107); Glucose 117 mg/dL (74-99); Non-African American GFR(CKD) 89 (>60 ml/min/1.73 sqM); Sodium 138 mmol/L (137-145)
[2022-01-30] MEDS ORDERED: HEPARIN SODIUM 1,000 UN/ML (10ML VL) ONE ×2 (07:18→07:50)
[2022-01-30] MEDS ORDERED: VERAPAMIL 2.5 MG/ML 2 ML AMP ONE (07:18)
[2022-01-30] MEDS ORDERED: fentaNYL (PF) 50 MCG/ML 2 ML AMP ONE (07:38)
[2022-01-30] MEDS ORDERED: MIDAZOLAM 2 MG/2 ML VIAL IV ONE ×2 (07:38→07:54)
[2022-01-30] MEDS ORDERED: fentaNYL (PF) 50 MCG/ML 2 ML AMP IV ONE (07:38)
[2022-01-30] MEDS ORDERED: LIDOCAINE 1% INJ 10MG/ML (5 ML VIAL-PF) SQ ONE (07:40)
[2022-01-30] MEDS ORDERED: VERAPAMIL SYRINGE (5 MG/10 ML) INTRAARTER ONE (07:40)
[2022-01-30] MEDS ORDERED: HEPARIN SODIUM 1,000 UN/ML (10ML VL) IV ONE ×2 (07:44→07:52)
[2022-01-30] MEDS ORDERED: IOPAMIDOL-370 125ML BTL INJ ONE (08:12)
[2022-01-30] MEDS ORDERED: NITROGLYCERIN 1000MCG/10ML SYRINGE INTRACORON ONE (08:12)
[2022-01-30] MEDS ORDERED: PRASUGREL 10 MG TAB ONE (08:14)
[2022-01-30] MEDS ORDERED: PRASUGREL 10 MG TAB PO ONE (08:19)
[2022-01-30] MEDS ORDERED: IOPAMIDOL-370 100ML BTL INJ ONE (08:19)
[2022-01-30] MEDS ORDERED: ATROPINE SULFATE 0.1 MG/ML 10ML SYRINGE IV PRN (08:25)
[2022-01-30] MEDS ORDERED: MAG HYDROX/AL HYDROX/SIMETH 30 ML CUP PO PRN (08:25)
[2022-01-30] MEDS ORDERED: ZOLPIDEM 5 MG TAB PO PRN (08:25)
[2022-01-30] MEDS ORDERED: RX INFO: IV CONTRAST WAS GIVEN 1 EACH MISC MISCELLANE PRN (08:25)
[2022-01-30] MEDS ORDERED: NITROGLYCERIN SL TABS 0.4 MG TAB SUBLINGUAL PRN (08:25)
[2022-01-30] MEDS ORDERED: SODIUM CHLORIDE 0.9% 1,000 ML in EMPTY BAG 1 BAG IV SCH (08:30)
--- NOTE | 2022-01-30 08:31 | P.PCN ---
Date of Procedure: 01/30/22 Operative Findings: CARDIAC CATHETERIZATION AND PERCUTANEOUS CORONARY INTERVENTION PERFORMING PHYSICIAN: Srikanth Dumont MD, [facility] PROCEDURE PERFORMED: 1. Selective right and left coronary angiogram 2. Left heart catheterization 3. Successful stenting of OM 3 of the LCx using 2.5 x 15 mm Xience KENTRELL which with an excellent angiographic results INDICATION: This is a 66-year-old gentleman with history of CAD and prior stenting of the LCx was experiencing symptoms of chest discomfort and shortness of breath with exertion be he underwent myocardial perfusion imaging stress test and that re vealed reversibility. In the light of that heart catheterization was advised. COMPLICATION: None APPROACH: Right radial artery LEVEL OF SEDATION: Moderate with the sedation time off 40 minutes PROCEDURE DESCRIPTION: After obtaining an informed consent the patient was brought to the cardiac bundle tier and labeler. The right radial artery was cannulated using micropuncture technique, the micropuncture wire passed easily then I placed a 6-Luxembourger sheath. I gave the patient 2 mg of verapamil intra-arterial and initially 5000 use of heparin intravenous. Subsequently additional 5000 as of heparin given during the intervention with continuous ACT monitoring. Subsequently the selective right and left coronary angiogram using JR4 and JL 3.5 catheters. Left heart catheterization was performed using the JR4 catheter which cross the aortic valve then after that I did intervene on the LCx. The procedure was completed without any complications SELECTIVE CORONARY ANGIOGRAM: The right coronary artery: Is a large caliber vessel and a dominant vessel. The RCA has mild disease in the midportion appears to be unchanged compared to before Left main: Is angiographically normal. Bifurcates into an LCx and LAD The left circumflex: Large caliber vessel nondominant vessel. The proximal LCx has mild disease only and gives rises into an OM1 which has intermediate lesion in the proximal portion. Then the LCx gives rises into an OM to 1.3. On 2 is a stented with mild in-stent restenosis and oriented 3 has a tight lesion appeared to be in the range of 80%. The left anterior descending artery: Large-caliber vessel. The LAD has mild disease only. It gives rises into a diagonal branch which appeared to have mild disease as well. HEMODYNAMICS: The LVEDP was 12 mmHg with no significant gradient across aortic valve PCI OF THE LCx: Anticoagulation was initiated using heparin with continuous ACT monitoring. I did exchange my sheath into 7-Luxembourger. I did engage the left main using a JL4 guiding catheter. Subsequently I did wire OM to and OM 3. After that I did PTCA ballooning of OM 2 using 2.5 x 12 mm balloon. After that I did stent OM 3 with adjunctive use of balloon angioplasty of OM 2 in a kissing technique. The stent was 2.5 x 15 mm stent where the stent was positioned under fluoroscopy guidance in adjunctive with the balloon and deployed at 12 [place] for 20 seconds. The final angiogram showed excellent angiographic results and the procedure was completed without any complications CONCLUSION: Severe disease involving OM 3. Intermediate in-stent restenosis of OM. I did successful stenting of OM 3 Normal left-sided filling pressure POSTPROCEDURE MANAGEMENT: #1 dual antiplatelet therapy with aspirin and Effient for at least 6 month #2 aggressive cholesterol control #3 follow-up with the patient
[2022-01-30] MEDS ORDERED: CHOLECALCIFEROL 125 MCG (5000 IU) TABLET PO SCH (09:00)
[2022-01-30] MEDS ORDERED: [UNRECOGNIZED DRUG - OTHER] PO SCH (09:00)
[2022-01-30] MEDS ORDERED: [UNRECOGNIZED DRUG - OTHER] PO SCH (09:00)
[2022-01-30] MEDS ORDERED: CARDIO PLUS PO SCH (09:00)
[2022-01-30] MEDS ORDERED: NON FORMULARY DRUG (Cider Vinegar [Apple Cider Vinegar] 300 MG Tablet) PO SCH (09:00)
[2022-01-30] MEDS ORDERED: NON FORMULARY DRUG (Ubidecarenone [Co Q-10] 400 MG Capsule) PO SCH (09:00)
[2022-01-30] MEDS ORDERED: ASCORBIC ACID 500 MG TAB PO SCH (09:00)
[2022-01-30 14:52] VITALS: RESP 18
[2022-01-30] MEDS: ASCORBIC ACID 500 MG TAB PO SCH ×2 (16:46→20:16)
[2022-01-30] MEDS: CHOLECALCIFEROL 125 MCG (5000 IU) TABLET PO SCH (16:46)
[2022-01-30] MEDS: CALCIUM CARB-MAG CARB-FOLIC 1 EACH TAB PO SCH (16:46)
[2022-01-30] MEDS: ATORVASTATIN 10 MG TAB PO SCH (20:16)
[2022-01-30] MEDS: LOSARTAN 50 MG TAB PO SCH (20:16)
[2022-01-31] MEDS: SODIUM CHLORIDE 0.9% 1,000 ML in EMPTY BAG 1 BAG IV SCH (05:10)
[2022-01-31] MEDS: CALCIUM CARB-MAG CARB-FOLIC 1 EACH TAB PO SCH (08:04)
[2022-01-31] MEDS: CHOLECALCIFEROL 125 MCG (5000 IU) TABLET PO SCH (08:05)
[2022-01-31] MEDS: ASCORBIC ACID 500 MG TAB PO SCH (08:05)
[2022-01-31] MEDS: LOSARTAN 50 MG TAB PO SCH (08:05)
--- NOTE | 2022-01-31 08:23 | P.DS ---
Providers Attending physician: Srikanth Dumont Consults: 01/30/22 08:25 Consult Physician Routine Consulting Provider: [facility] Consult Reason/Comments: Post Interventional Patient Do you want consulting provider notified?: Already Contacted Primary care physician: Fel[facility] Course: The patient is a pleasant 66-year-old gentleman who underwent yesterday successful stenting of the left circumflex with a good angiographic results and without any complication. The patient was seen this morning. He is going to be discharged home on dual antiplatelet therapy. The right radial site is soft and nontender and without any bruises. I'm going to follow-up with the patient in a week in the office Plan - Discharge Summary Discharge Rx Participant: Yes New Discharge Prescriptions: New Prasugrel [Effient] 10 mg PO DAILY #90 tab Continue Aspirin 81 mg PO DAILY #30 chew Losartan [Cozaar] 50 mg PO BID #60 tab Atorvastatin Calcium [Lipitor] 10 mg PO HS #30 tab hydroCHLOROthiazide [Hydrodiuril] 12.5 mg PO DAILY Cider Vinegar [Apple Cider Vinegar] 1,000 mg PO DAILY Cholecalciferol [Vitamin D3 (125 Mcg = 5000 Iu)] 250 mcg PO DAILY Ubidecarenone [Co Q-10] 50 mg PO BID Cardio Trophin 555 mg PO BID Co Q Max 1 tab PO DAILY Calcium/Magnesium/Vit D3/Dexter [Calcium-Mag Oxide-Vit D3 Sftgl] 1 each PO DAILY Ascorbic Acid [Vitamin C] 1,000 mg PO BID Cardio-Plus 1 tab PO BID Discharge Medication List Aspirin 81 mg PO DAILY #30 chew 11/13/18 [Rx] Losartan [Cozaar] 50 mg PO BID #60 tab 11/13/18 [Rx] Atorvastatin Calcium [Lipitor] 10 mg PO HS #30 tab 11/14/18 [Rx] hydroCHLOROthiazide [Hydrodiuril] 12.5 mg PO DAILY 12/27/19 [History] Ascorbic Acid [Vitamin C] 1,000 mg PO BID 01/26/22 [History] Calcium/Magnesium/Vit D3/Dexter [Calcium-Mag Oxide-Vit D3 Sftgl] 1 each PO DAILY 01/26/22 [History] Cardio Trophin 555 mg PO BID 01/26/22 [History] Cardio-Plus 1 tab PO BID 01/26/22 [History] Cholecalciferol [Vitamin D3 (125 Mcg = 5000 Iu)] 250 mcg PO DAILY 01/26/22 [History] Cider Vinegar [Apple Cider Vinegar] 1,000 mg PO DAILY 01/26/22 [History] Co Q Max 1 tab PO DAILY 01/26/22 [History] Ubidecarenone [Co Q-10] 50 mg PO BID 01/26/22 [History] Prasugrel [Effient] 10 mg PO DAILY #90 tab 01/31/22 [Rx] Follow up Appointment(s)/Referral(s): Srikanth Dumont MD [STAFF PHYSICIAN] - 02/07/22 11:15 am () Patient Instructions/Handouts: Prasugrel (By mouth), Coronary Intravascular Stent Placement (DC), Coronary Angioplasty (DC), After Radial Heart Catheterization (GEN)
[2022-01-31] MEDS ORDERED: PRASUGREL 10 MG TAB PO SCH (09:00)
[2022-01-31] MEDS ORDERED: hydroCHLOROthiazide 12.5 MG CAP PO SCH (09:00)
[2022-01-31] MEDS ORDERED: ASPIRIN 81 MG PO SCH (09:00)
[2022-01-31 09:51] VITALS: BP 137/73; PULSE 65; TEMP 98
== END 2022-01-31 10:12 | disposition home or self-care (01) ==
LOC: CATHCVL 05:51 → 6NMEDSUR 08:31 → CATHCVL 01-31 10:12
PROVIDERS: ATTEND Internal Medicine Interventional Cardiology
DX: I25.110 Atherosclerotic heart disease of native coronary artery with unstable angina pectoris (principal); T82.855A Stenosis of coronary artery stent, initial encounter; I10 Essential (primary) hypertension; R94.39 Abnormal result of other cardiovascular function study; E78.5 Hyperlipidemia, unspecified; Z20.822 Contact with and (suspected) exposure to COVID-19; E66.3 Overweight; Z95.0 Presence of cardiac pacemaker; Z86.718 Personal history of other venous thrombosis and embolism; R01.1 Cardiac murmur, unspecified; Z79.82 Long term (current) use of aspirin; Z79.899 Other long term (current) drug therapy
CPT/HCPCS: 93458; 92921; 80048; 85025; 87635; C9600; C1894 ×2; C1725; C1769 ×3; C1874; J2250; J2001; J3010; J1644; Q9967 ×2

== ENCOUNTER 2022-09-19 17:40 | Inpatient (IN) | payer MEDICARE, OTHER ==
[2022-09-19 18:51] LABS: Basophils % (A) 1 %; Eosinophils # (A) 0.1 k/uL (0-0.7); Eosinophils % (A) 2 %; HCT 42.3 % (39.0-53.0); HGB 13.8 gm/dL (13.0-17.5); Lymphocytes # (A) 1.6 k/uL (1.0-4.8); Lymphocytes % (A) 24 %; MCH 29.6 pg (25.0-35.0); MCHC 32.5 g/dL (31.0-37.0); MCV 90.9 fL (80.0-100.0); Mean Platelet Volume 8.2; Monocytes # (A) 0.4 k/uL (0-1.0); Monocytes % (A) 5 %; Neutrophils # (A) 4.6 k/uL (1.3-7.7); Neutrophils % (A) 67 %; Platelet Count 210 k/uL (150-450); RBC 4.66 m/uL (4.30-5.90); RDW 14.1 % (11.5-15.5); WBC 6.9 k/uL (3.8-10.6)
[2022-09-19 19:01] LABS: ALT 19 U/L (4-49); AST 23 U/L (17-59); African American GFR (CKD) >90 (>60 ml/min/1.73 sqM); Albumin 3.9 g/dL (3.5-5.0); Alkaline Phosphatase 145 U/L (38-126); Anion Gap 7 mmol/L; Blood Urea Nitrogen 15 mg/dL (9-20); Calcium 9.3 mg/dL (8.4-10.2); Carbon Dioxide 29 mmol/L (22-30); Chloride 104 mmol/L (98-107); Glucose 105 mg/dL (74-99); Lipase 110 U/L (23-300); Magnesium 1.9 mg/dL (1.6-2.3); Non-African American GFR(CKD) 84 (>60 ml/min/1.73 sqM); Potassium 4.2 mmol/L (3.5-5.1); Sodium 140 mmol/L (137-145); Total Bilirubin 0.8 mg/dL (0.2-1.3); Total Protein 6.9 g/dL (6.3-8.2)
[2022-09-19 19:25] LABS: Prothrombin Time 10.2 sec (9.0-12.0)
--- NOTE | 2022-09-19 19:35 | XR ---
EXAMINATION TYPE: XR chest 2V DATE OF EXAM: 09/19/2022 COMPARISON: 08/28/2021 HISTORY: Line placement TECHNIQUE: 2 views FINDINGS: There is a left axillary pacemaker with lead tips over the right ventricle. No sign of hear t failure nor confluent pneumonic infiltrate. Heart size is normal. There are no hilar masses. No ple ural effusion. The bony thorax is intact. IMPRESSION: No active cardiopulmonary disease. No change.
--- NOTE | 2022-09-19 20:09 | ED ---
General Adult HPI - General Chief complaint: Recheck/Abnormal Lab/Rx Stated complaint: High BP Time Seen by Provider: 09/19/22 18:25 Source: patient Mode of arrival: wheelchair Limitations: no limitations - History of Present Illness Initial comments: This is a 67-year-old male with a past medical history including hypertension, previous cardiac stents and pacemaker placement presents emergency department for numbness and tingling in the left shoulder, left arm and left side of the neck. The patient stated this is been present over the last 1 week and he was concerned because of the continued symptoms. The patient talked to his carving machine operator's office who advised them to come to the emergency department. On arrival, the patient denied any chest pain or shortness of breath. The patient did state that he had similar symptoms in the past that was when he needed cardiac stents he was concerned about his heart as well as possible circulation problems as he was adjusted by a chiropractor several times in the past, most recently on Sunday. The patient denied any other acute pain at this time including any lightheadedness, dizziness as well as any nausea and vomiting. - Related Data Home Medications Medication Instructions Recorded Confirmed Ascorbic Acid [Vitamin C] 1,000 mg PO BID 01/26/22 01/30/22 Cholecalciferol [Vitamin D3 (125 250 mcg PO DAILY 01/26/22 01/30/22 Mcg = 5000 Iu)] Apple Cider Vinegar Gummies 1 dose PO DAILY 09/19/22 09/19/22 Clopidogrel [Plavix] 75 mg PO DAILY 09/19/22 09/19/22 Previous Rx's Medication Instructions Recorded Losartan [Cozaar] 50 mg PO BID #60 tab 11/13/18 Atorvastatin Calcium [Lipitor] 10 mg PO HS #30 tab 11/14/18 Allergies Allergy/AdvReac Type Severity Reaction Status Date / Time adhesive tape Allergy RED SKIN, Verified 09/19/22 21:12 Review of Systems ROS Statement: Those systems with pertinent positive or pertinent negative responses have been documented in the HPI. ROS Other: All systems not noted in ROS Statement are negative. Past Medical History Past Medical History: Coronary Artery Disease (CAD), Deep Vein Thrombosis (DVT), Hyperlipidemia, Hypertension, Myocardial Infarction (GA), Syncope Additional Past Medical History / Comment(s): DVT IN LEFT ARM -AUGUST 2021 Last Myocardial Infarction Date:: October 2018 History of Any Multi-Drug Resistant Organisms: None Reported Past Surgical History: Heart Catheterization With Stent, Pacemaker, Tonsillectomy Additional Past Surgical History / Comment(s): Stent in October of 2018. Past Anesthesia/Blood Transfusion Reactions: No Reported Reaction Date of Last Stent Placement:: October 2018 Type of Cardiac Device: Permanent Pacemaker Device Placement Date:: SEPTEMBER2021 Past Psychological History: No Psychological Hx Reported Smoking Status: Never smoker Past Alcohol Use History: None Reported Past Drug Use History: None Reported - Past Family History Father Additional Family Medical History / Comment(s): CABG, kidney failure. Mother Additional Family Medical History / Comment(s): [employer] Valve.- Brother(s) Family Medical History: Deep Vein Thrombosis (DVT) General Exam Limitations: no limitations General appearance: alert, in no apparent distress Head exam: Present: atraumatic, normocephalic, normal inspection Eye exam: Present: normal appearance, PERRL Pupils: Present: normal accommodation ENT exam: Present: normal exam, normal oropharynx, mucous membranes moist Neck exam: Present: normal inspection, full ROM Respiratory exam: Present: normal lung sounds bilaterally Cardiovascular Exam: Present: regular rate, normal rhythm, normal heart sounds GI/Abdominal exam: Present: soft, normal bowel sounds Extremities exam: Present: normal inspection, full ROM Back exam: Present: normal inspection, full ROM Neurological exam: Present: alert, oriented X3, CN II-XII intact Psychiatric exam: Present: normal affect, normal mood Skin exam: Present: warm, dry Course Vital Signs 09/19/22 09/19/22 09/19/22 18:04 18:42 19:39 Temperature 97.9 F Pulse Rate 79 63 64 Respiratory 18 18 18 Rate Blood Pressure 194/90 181/90 183/80 O2 Sat by Pulse 98 97 97 Oximetry EKG Findings - EKG Comments: EKG Findings:: An EKG was obtained and interpreted by myself showing a rate of 74, MS interval of 211, QRS duration of 178 and QTC of 440. This EKG showed an electronic atrial ventricularly paced rhythm. There was no significant ST segment elevation or depression noted. Medical Decision Making - Medical Decision Making Was pt. sent in by a medical professional or institution (, PA, NURSE PLASTICS, urgent care, hospital, or intermediate...) When possible be specific @ -No Did you speak to anyone other than the patient for history (EMS, parent, family, police, friend...)? What history was obtained from this source @ -No Did you review nursing and triage notes (agree or disagree)? Why? @ -I reviewed and agree with nursing and triage notes Were old charts reviewed (outside hosp., previous admission, EMS record, old EKG, old radiological studies, urgent care reports/EKG's, intermediate records)? Report findings @ -No old charts were reviewed Differential Diagnosis (chest pain, altered mental status, abdominal pain women, abdominal pain men, vaginal bleeding, weakness, fever, dyspnea, syncope, headache, dizziness, GI bleed, back pain, seizure, CVA, palpatations, mental health)? @ -ACS, chest wall muscle strain, pneumonia EKG interpreted by me (3pts min.). @ -As above X-rays interpreted by me (1pt min.). @ -Chest x-ray was obtained and was interpreted by myself showing no acute process. CT interpreted by me (1pt min.). @ -CTA of the head and neck was obtained and was interpreted by myself showing no acute process. U/S interpreted by me (1pt. min.). @ -None done What testing was considered but not performed or refused? (CT, X-rays, U/S, labs)? Why? @ -None What meds were considered but not given or refused? Why? @ -None Did you discuss the management of the patient with other professionals (professionals i.e. Dr., PA, NURSE PLASTICS, lab, RT, psych nurse, manager social responsibility, ribbon hanking machine operator, teacher, commanding officer homicide squad, case resource manager)? Give summary @ -Yes, admitting team, [facility] Was smoking cessation discussed for >3mins.? @ -No Was critical care preformed (if so, how long)? @ -No Were there social determinants of health that impacted care today? How? (Ho melessness, low income, unemployed, alcoholism, drug addiction, transportation, low edu. Level, literacy, decrease access to med. care, fdc, rehab)? @ -No Was there de-escalation of care discussed even if they declined (Discuss DNR or withdrawal of care, Hospice)? DNR status @ -No What co-morbidities impacted this encounter? (DM, HTN, Smoking, COPD, CAD, Cancer, CVA, ARF, Chemo, Hep., AIDS, mental health diagnosis, sleep apnea, morbid obesity)? @ -Previous heart stents, hypertension Was patient admitted / discharged? Hospital course, mention meds given and route, prescriptions, significant lab abnormalities, going to OR and other pertinent info. @ -The patient was seen and evaluated in emergency department. Physical exam, the patient was resting in bed without any acute distress. The patient did have continued symptoms however. Vital signs showed mild hypertension however remained within normal limits. Laboratory workup was obtained and showed an elevated troponin from his baseline. In the setting of the patient's elevation of troponin with the numbness and tingling noted on the left arm and left jaw, the patient will be started on heparin and treated for an NSTEMI. Due to the patient's neck pain and numbness and tingling noted, a CTA of the head and neck was obtained. The patient had been adjusted by a chiropractor several times therefore vertebral dissection was ruled out at the CTA of the head and neck was within normal limits. The patient was told this plan and was agreeable. The patient was admitted in stable condition. Undiagnosed new problem with uncertain prognosis? @ -No Drug Therapy requiring intensive monitoring for toxicity (Heparin, Nitro, Insulin, Cardizem)? @ -Heparin Were any procedures done? @ -No Diagnosis/symptom? @ -NSTEMI Acute, or Chronic, or Acute on Chronic? @ -Acute Uncomplicated (without systemic symptoms) or Complicated (systemic symptoms)? @ -Comlicated Side effects of treatment? @ -No Exacerbation, Progression, or Severe Exacerbation? @ -No Poses a threat to life or bodily function? How? (Chest pain, USA, GA, pneumonia, PE, COPD, DKA, ARF, appy, cholecystitis, CVA, Diverticulitis, Homicidal, Suicidal, threat to staff... and all critical care pts) @ -Yes, continued NSTEMI can lead to continue cardiac damage and possible . - Lab Data Result diagrams: 09/19/22 18:41 09/19/22 18:41 Lab Results 09/19/22 09/19/22 09/19/22 Range/Units 18:41 18:41 18:41 WBC 6.9 (3.8-10.6) k/uL RBC 4.66 (4.30-5.90) m/uL Hgb 13.8 (13.0-17.5) gm/dL Hct 42.3 (39.0-53.0) % MCV 90.9 (80.0-100.0) fL MCH 29.6 (25.0-35.0) pg MCHC 32.5 (31.0-37.0) g/dL RDW 14.1 (11.5-15.5) % Plt Count 210 (150-450) k/uL MPV 8.2 Neutrophils % 67 % Lymphocytes % 24 % Monocytes % 5 % Eosinophils % 2 % Basophils % 1 % Neutrophils # 4.6 (1.3-7.7) k/uL Lymphocytes # 1.6 (1.0-4.8) k/uL Monocytes # 0.4 (0-1.0) k/uL Eosinophils # 0.1 (0-0.7) k/uL Basophils # 0.0 (0-0.2) k/uL PT 10.2 (9.0-12.0) sec INR 1.0 (<1.2) APTT 25.0 (22.0-30.0) sec Sodium 140 (137-145) mmol/L Potassium 4.2 (3.5-5.1) mmol/L Chloride 104 (98-107) mmol/L Carbon Dioxide 29 (22-30) mmol/L Anion Gap 7 mmol/L BUN 15 (9-20) mg/dL Creatinine 0.93 (0.66-1.25) mg/dL Est GFR (CKD-EPI)AfAm >90 (>60 ml/min/1.73 sqM) Est GFR (CKD-EPI)NonAf 84 (>60 ml/min/1.73 sqM) Glucose 105 H (74-99) mg/dL Calcium 9.3 (8.4-10.2) mg/dL Magnesium 1.9 (1.6-2.3) mg/dL Total Bilirubin 0.8 (0.2-1.3) mg/dL AST 23 (17-59) U/L ALT 19 (4-49) U/L Alkaline Phosphatase 145 H (38-126) U/L Troponin I (0.000-0.034) ng/mL NT-Pro-B Natriuret Pep pg/mL Total Protein 6.9 (6.3-8.2) g/dL Albumin 3.9 (3.5-5.0) g/dL Lipase 110 (23-300) U/L 09/19/22 09/19/22 Range/Units 18:41 18:41 WBC (3.8-10.6) k/uL RBC (4.30-5.90) m/uL Hgb (13.0-17.5) gm/dL Hct (39.0-53.0) % MCV (80.0-100.0) fL MCH (25.0-35.0) pg MCHC (31.0-37.0) g/dL RDW (11.5-15.5) % Plt Count (150-450) k/uL MPV Neutrophils % % Lymphocytes % % Monocytes % % Eosinophils % % Basophils % % Neutrophils # (1.3-7.7) k/uL Lymphocytes # (1.0-4.8) k/uL Monocytes # (0-1.0) k/uL Eosinophils # (0-0.7) k/uL Basophils # (0-0.2) k/uL PT (9.0-12.0) sec INR (<1.2) APTT (22.0-30.0) sec Sodium (137-145) mmol/L Potassium (3.5-5.1) mmol/L Chloride (98-107) mmol/L Carbon Dioxide (22-30) mmol/L Anion Gap mmol/L BUN (9-20) mg/dL Creatinine (0.66-1.25) mg/dL Est GFR (CKD-EPI)AfAm (>60 ml/min/1.73 sqM) Est GFR (CKD-EPI)NonAf (>60 ml/min/1.73 sqM) Glucose (74-99) mg/dL Calcium (8.4-10.2) mg/dL Magnesium (1.6-2.3) mg/dL Total Bilirubin (0.2-1.3) mg/dL AST (17-59) U/L ALT (4-49) U/L Alkaline Phosphatase (38-126) U/L Troponin I 0.044 H* (0.000-0.034) ng/mL NT-Pro-B Natriuret Pep 301 pg/mL Total Protein (6.3-8.2) g/dL Albumin (3.5-5.0) g/dL Lipase (23-300) U/L Disposition Clinical Impression: NSTEMI (non-ST elevated myocardial infarction) Disposition: ADMITTED IP TO THIS HOSP Condition: Stable Is patient prescribed a controlled substance at d/c from ED?: No Referrals: Felipe Mar DO [Primary Care Provider] - 1-2 days Time of Disposition: 20:45 Decision to Admit Reason: Admit from EC Decision Date: 09/19/22 Decision Time: 20:45
--- NOTE | 2022-09-19 20:43 | CT ---
EXAMINATION TYPE: CT angio head neck DATE OF EXAM: 09/19/2022 COMPARISON: None HISTORY: pain, numbess, tingling CT DLP: 2181.8 mGycm Automated exposure control for dose reduction was used. CONTRAST: Performed with IV Contrast, patient injected with 65ml mL of Isovue 370. Images obtained from the aortic arch to the vertex of the brain without IV contrast. There are Three- D postprocessed images. The noncontrast images show some cerebral cortical atrophy. There is no mass effect or midline shift. No sign of intracranial hemorrhage. There is normal branching pattern of the great vessels on the aortic arch. There is bilateral arteria l flow in the subclavian arteries. There is arterial flow in the common internal and external carotid arteries bilaterally. There is some plaque formation and calcification at the carotid artery bifurca tions. There is estimated at less than 10% stenosis in both internal carotid arteries. There is arter ial flow in both vertebral arteries. There is arterial flow in the vertebral basilar artery system. N o evidence of carotid or vertebral artery aneurysm or dissection. There is arterial flow in the anterior middle and posterior cerebral arteries bilaterally. No mass ef fect. No evidence of intracranial aneurysm or neovascularity. No evidence of intracranial hemodynamic arterial stenosis. There is normal enhancement of the venous sinuses. IMPRESSION: Negative CT angiogram of the head and neck. Mild cerebral atrophy. No acute intracranial abnormality.
[2022-09-19] MEDS ORDERED: HEPARIN SODIUM 1,000 UN/ML (10ML VL) IV ONE (20:51)
[2022-09-19] MEDS ORDERED: HEPARIN SODIUM 1,000 UN/ML (10ML VL) IV PRN (20:51)
[2022-09-19] MEDS: HEPARIN SOD,PORK IN 0.45% NACL 25,000 UNIT in 0.45% NACL 1 250ML.BAG IV SCH (21:21)
[2022-09-19] MEDS ORDERED: NALOXONE 0.4 MG/ML 1 ML VIAL IV PRN (21:28)
[2022-09-19] MEDS ORDERED: ONDANSETRON 4 MG/2 ML VIAL IVP PRN (22:15)
[2022-09-19] MEDS ORDERED: ACETAMINOPHEN TAB 325 MG TAB PO PRN (22:16)
[2022-09-19] MEDS ORDERED: METOPROLOL TARTRATE 25 MG TAB PO SCH (22:30)
[2022-09-19] MEDS: ASCORBIC ACID 500 MG TAB PO SCH (22:31)
[2022-09-19] MEDS: LOSARTAN 50 MG TAB PO SCH (22:31)
[2022-09-19] MEDS: ATORVASTATIN 10 MG TAB PO SCH (22:31)
[2022-09-20 03:52] LABS: Basophils % (A) 1 %; Eosinophils # (A) 0.2 k/uL (0-0.7); Eosinophils % (A) 2 %; HCT 41.2 % (39.0-53.0); HGB 13.5 gm/dL (13.0-17.5); Lymphocytes # (A) 2.4 k/uL (1.0-4.8); Lymphocytes % (A) 35 %; MCHC 32.8 g/dL (31.0-37.0); MCV 91.4 fL (80.0-100.0); Monocytes # (A) 0.4 k/uL (0-1.0); Monocytes % (A) 5 %; Neutrophils # (A) 3.9 k/uL (1.3-7.7); Neutrophils % (A) 56 %; Platelet Count 186 k/uL (150-450); RDW 14.1 % (11.5-15.5)
[2022-09-20 04:55] LABS: Partial Thromboplastin Time 37.8 sec (22.0-30.0); Prothrombin Time 10.9 sec (9.0-12.0)
--- NOTE | 2022-09-20 08:50 | P.CRDCN ---
History of Present Illness Consult date: 09/20/22 Reason for Consult (text): nstemi History of present illness: History of present illness: This is a 67-year-old male patient of Dr. Dumont a past medical history of coronary artery disease with prior stenting of the OM 3 of the LC ex as well as permanent pacemaker, hypertension, dyslipidemia, history of DVT. We have been asked to evaluate patient for non-ST elevated myocardial infarction. Patient states that 3 years ago he had stent placement at that time it passed out and then had a stiff neck at that time. He has now developed a stiff neck left shoulder arm and hand pain with arm and hand tingling that seems similar to the symptoms he had before but he has not passed out. He states he has had some symptoms going on for the past 2-3 weeks but for the past 1-1/2 weeks it has been there about 80% of the time. Prior to that it was very intermittent and would last only a short period. Activity does not seem to make the pain better or worse. He does note that when he turns his head to the left it makes his discomfort increased. Patient presented with a blood pressure 194/90. EKG pacer rhythm Chest x-ray: No active disease CT angiogram of the head and neck negative. Mild cerebral atrophy. No acute intracranial abnormality. CBC within normal limits. INR 1. Troponin 0.044, 0.073, 0.068. Alkaline phosphatase 145 otherwise liver function tests are normal. Electrolytes and renal function are normal with BUN of 15 and creatinine 0.93. Blood sugar 105. Lipase 110. Home cardiac medications: Atorvastatin 10 mg at bedtime, Plavix 75 mg daily, losartan 50 mg twice daily Cardiac catheterization 01/2022 revealed severe disease involving the OM 3. Intermediate in-stent restenosis of OM and successful stenting of the OM 3. Normal left-sided filling pressures Dual chamber pacemaker implantation [employer]'s device, 08/26/2021 Echocardiogram 12/27/2021: Normal EF, mild MR Review Of Systems: At the time of my evaluation: Constitutional: No fever, no chills. No weakness, fatigue or lethargy. EENT: No headache. No dizziness. Left neck discomfort with left arm and hand discomfort Lungs: No shortness of breath, cough, no sputum production. No wheezing. Cardiovascular: No chest pain, no lower extremity edema. No palpitations. No paroxysmal nocturnal dyspnea. No orthopnea. No lightheadedness or dizziness. No syncopal episodes. Abdominal: No abdominal pain. No nausea, vomiting. No diarrhea. Musculoskeletal: No myalgias. No muscle weakness, no frequent falls. No back pain. No neck pain. Left arm and hand numbness and tingling. Integumentary: No wounds. No rash. No unusual bruising. Neurologic: No aphasia. No facial droop. No change in mentation. No head injury. No headache. Physical examination: Gen: This is a 67-year-old male. He is resting in bed appears to be comfortable and in no acute distress. VS: reviewed HEENT: Head is atraumatic, normocephalic. Pupils equal, round. Sclerae is anicteric. NECK: Supple. No JVD. . LUNGS: Clear to auscultation. No wheezes or rhonchi. No intercostal retractions. HEART: Regular rate and rhythm. Systolic murmur at the right upper sternal border. Pacemaker left anterior chest wall. ABDOMEN: Soft No tenderness. EXTREMITIES: No pedal edema. No calf tenderness. NEUROLOGICAL: Patient is awake, alert and oriented x3. Assessment: Elevated troponins, possible non-ST elevated myocardial infarction Neck discomfort with left arm numbness and tingling History of coronary artery disease Permanent pacemaker Hypertension Dyslipidemia History of DVT Plan: Resume patient's home cardiac medications Continue heparin drip Obtain 2-D echocardiogram and Doppler study to assess cardiac structure and function Patient will be scheduled for cardiac catheterization with Dr. Dumont either today or tomorrow depending on scheduling availability. Patient will remain nothing by mouth and on heparin drip until date and time of procedure has been determined. Further recommendations to follow based upon clinical course Thank you kindly for this consultation. Nurse practitioner note has been reviewed, I agree with documented findings and plan of care. Patient was seen and examined. Past Medical History Past Medical History: Coronary Artery Disease (CAD), Deep Vein Thrombosis (DVT), Hyperlipidemia, Hypertension, Myocardial Infarction (MS), Syncope Additional Past Medical History / Comment(s): DVT IN LEFT ARM -AUGUST 2021 Last Myocardial Infarction Date:: October 2018 History of Any Multi-Drug Resistant Organisms: None Reported Past Surgical History: Heart Catheterization With Stent, Pacemaker, Tons illectomy Additional Past Surgical History / Comment(s): Stent in October of 2018, and 02/13. Past Anesthesia/Blood Transfusion Reactions: No Reported Reaction Date of Last Stent Placement:: 02/13 Type of Cardiac Device: Permanent Pacemaker Device Placement Date:: SEPTEMBER2021 Past Psychological History: No Psychological Hx Reported Smoking Status: Never smoker Past Alcohol Use History: None Reported Past Drug Use History: None Reported - Past Family History Father Additional Family Medical History / Comment(s): CABG, kidney failure. Mother Additional Family Medical History / Comment(s): [employer] Valve.- Brother(s) Family Medical History: Deep Vein Thrombosis (DVT) Medications and Allergies Home Medications Medication Instructions Recorded Confirmed Type Losartan [Cozaar] 50 mg PO BID #60 tab 11/13/18 09/19/22 Rx Atorvastatin Calcium [Lipitor] 10 mg PO HS #30 tab 11/14/18 09/19/22 Rx Ascorbic Acid [Vitamin C] 1,000 mg PO BID 01/26/22 09/19/22 History Cholecalciferol [Vitamin D3 (125 125 mcg PO DAILY 01/26/22 09/19/22 History Mcg = 5000 Iu)] Apple Cider Vinegar Gummies 1 dose PO DAILY 09/19/22 09/19/22 History Clopidogrel [Plavix] 75 mg PO DAILY 09/19/22 09/19/22 History Allergies Allergy/AdvReac Type Severity Reaction Status Date / Time adhesive tape Allergy RED SKIN, Verified 09/19/22 21:12 Physical Exam Vitals: Vital Signs Temp Pulse Pulse Resp BP BP Pulse Ox 09/20/22 03:46 63 17 168/80 98 09/20/22 00:24 167/90 09/19/22 23:37 82 18 195/99 99 09/19/22 22:10 98.3 F 61 18 180/83 98 09/19/22 21:36 63 16 159/72 95 09/19/22 19:39 64 18 183/80 97 09/19/22 18:42 63 18 181/90 97 09/19/22 18:04 97.9 F 79 18 194/90 98 Intake and Output 09/19/22 09/20/22 09/20/22 22:59 06:59 14:59 Intake Total 76.167 Balance 76.167 Intake: Intake, IV Titration 76.167 Amount Heparin Sod,Pork in 0.45% 76.167 NaCl 25,000 unit In 0.45 % NaCl 1 250ml.bag @ 7. 874 UNITS/KG/HR 10 mls/hr IV .Q24H [facility] Rx#: [id number] Other: # Voids 1 Weight 127.006 kg Results 09/20/22 03:35 09/19/22 18:41 Cardiac Enzymes 09/19/22 09/19/22 09/20/22 Range/Units 18:41 18:41 00:53 AST 23 (17-59) U/L Troponin I 0.044 H* 0.073 H* (0.000-0.034) ng/mL 09/20/22 Range/Units 03:35 AST (17-59) U/L Troponin I 0.068 H* (0.000-0.034) ng/mL Coagulation 09/19/22 09/20/22 Range/Units 18:41 03:35 PT 10.2 10.9 (9.0-12.0) sec APTT 25.0 37.8 H (22.0-30.0) sec CBC 09/19/22 09/20/22 Range/Units 18:41 03:35 WBC 6.9 7.0 (3.8-10.6) k/uL RBC 4.66 4.50 (4.30-5.90) m/uL Hgb 13.8 13.5 (13.0-17.5) gm/dL Hct 42.3 41.2 (39.0-53.0) % Plt Count 210 186 (150-450) k/uL Comprehensive Metabolic Panel 09/19/22 Range/Units 18:41 Sodium 140 (137-145) mmol/L Potassium 4.2 (3.5-5.1) mmol/L Chloride 104 (98-107) mmol/L Carbon Dioxide 29 (22-30) mmol/L BUN 15 (9-20) mg/dL Creatinine 0.93 (0.66-1.25) mg/dL Glucose 105 H (74-99) mg/dL Calcium 9.3 (8.4-10.2) mg/dL AST 23 (17-59) U/L ALT 19 (4-49) U/L Alkaline Phosphatase 145 H (38-126) U/L Total Protein 6.9 (6.3-8.2) g/dL Albumin 3.9 (3.5-5.0) g/dL Current Medications Generic Name Dose Route Start Last Admin Trade Name Freq PRN Reason Stop Dose Admin Acetaminophen 650 mg 09/19/22 22:16 Acetaminophen Tab 325 Mg Tab PO Q6HR PRN Fever and/ or Pain Ascorbic Acid 1,000 mg 09/19/22 22:15 09/19/22 22:31 Ascorbic Acid 500 Mg Tab PO 1,000 mg BID JOSE Administration Atorvastatin Calcium 10 mg 09/19/22 22:15 09/19/22 22:31 Atorvastatin 10 Mg Tab PO 10 mg HS JOSE Administration Carvedilol 6.25 mg 09/20/22 07:45 Carvedilol 6.25 Mg Tab PO BID-W/MEALS JOSE Heparin Sodium (Porcine) 0 unit 09/19/22 20:51 Heparin Sodium 1,000 Un/Ml (10ml Vl) IV PER PROTOCOL PRN Low PTT Protocol Heparin Sodium/Sodium Chloride 250 mls @ 10 mls/hr 09/19/22 21:00 09/20/22 04:58 25,000 unit/ Sodium Chloride IV 9.874 units/kg/hr .Q24H JOSE 12.541 mls/hr Titration Protocol 7.874 UNITS/KG/HR Losartan Potassium 50 mg 09/19/22 22:15 09/19/22 22:31 Losartan 50 Mg Tab PO 50 mg BID JOSE Administration Naloxone HCl 0.2 mg 09/19/22 21:28 Naloxone 0.4 Mg/Ml 1 Ml Vial IV Q2M PRN Opioid Reversal Ondansetron HCl 4 mg 09/19/22 22:15 Ondansetron 4 Mg/2 Ml Vial IVP Q6HR PRN Nausea And Vomiting Intake and Output 09/19/22 09/20/22 09/20/22 22:59 06:59 14:59 Intake Total 76.167 Balance 76.167 Intake: Intake, IV Titration 76.167 Amount Heparin Sod,Pork in 0.45% 76.167 NaCl 25,000 unit In 0.45 % NaCl 1 250ml.bag @ 7. 874 UNITS/KG/HR 10 mls/hr IV .Q24H [facility] Rx#: [id number] Other: # Voids 1 Weight 127.006 kg 09/20/22 03:35 09/19/22 18:41
[2022-09-20] MEDS: LOSARTAN 50 MG TAB PO SCH ×2 (09:21→19:45)
[2022-09-20] MEDS: carvediloL 6.25 MG TAB PO SCH ×2 (09:21→17:15)
[2022-09-20] MEDS: ASCORBIC ACID 500 MG TAB PO SCH ×2 (09:21→19:45)
[2022-09-20] MEDS ORDERED: ATORVASTATIN 80 MG TAB PO STA (09:39)
[2022-09-20] MEDS ORDERED: ALPRAZolam 0.25 MG TAB PO PRN (09:39)
[2022-09-20] MEDS ORDERED: NITROGLYCERIN SL TABS 0.4 MG TAB SUBLINGUAL PRN (09:39)
[2022-09-20] MEDS ORDERED: ASPIRIN 325 MG TAB PO STA (09:39)
[2022-09-20] MEDS ORDERED: ALPRAZolam 0.5 MG TAB PO PRN (09:39)
--- NOTE | 2022-09-20 11:30 | P.HPIM ---
History of Present Illness 67-year-old pleasant male with previous history of stents came in with the complaints of tingling and numbness in the left and discomfort in the pacemaker area. Patient denied any fever chills patient denied any shock related to pac emaker. Patient was also having some paraspinal muscle spasm and spasm in the trapezius area which she believes may be contributing to his pain as well although patient is found to have mildly elevated troponin of 0.068. Cardiology evaluated the patient and recommended a cardiac catheterization patient blood pressure is bit high on admission. REVIEW OF SYSTEMS: CONSTITUTIONAL: No fever, no malaise, no fatigue. HEENT: No recent visual problems or hearing problems. Denied any sore throat. CARDIOVASCULAR: No chest pain, orthopnea, PND, no palpitations, no syncope. PULMONARY: No shortness of breath, no cough, no hemoptysis. GASTROINTESTINAL: No diarrhea, no nausea, no vomiting, no abdominal pain. NEUROLOGICAL: No headaches, no weakness, no numbness. HEMATOLOGICAL: Denies any bleeding or petechiae. GENITOURINARY: Denies any burning micturition, frequency, or urgency. MUSCULOSKELETAL/RHEUMATOLOGICAL: Denies any joint pain, swelling, or any muscle pain. ENDOCRINE: Denies any polyuria or polydipsia. The rest of the 14-point review of systems is negative. PHYSICAL EXAMINATION: GENERAL: The patient is alert and oriented x3, not in any acute distress. Well developed, well nourished. HEENT: Pupils are round and equally reacting to light. EOMI. No scleral icterus. No conjunctival pallor. Normocephalic, atraumatic. No pharyngeal erythema. No thyromegaly. CARDIOVASCULAR: S1 and S2 present. No murmurs, rubs, or gallops. PULMONARY: Chest is clear to auscultation, no wheezing or crackles. ABDOMEN: Soft, nontender, nondistended, normoactive bowel sounds. No palpable organomegaly. MUSCULOSKELETAL: No joint swelling or deformity. Left upper trapezius muscle prominence EXTREMITIES: No cyanosis, clubbing, or pedal edema. NEUROLOGICAL: Gross neurological examination did not reveal any focal deficits. SKIN: No rashes. Assessment and plan -Left arm tingling numbness with mildly elevated troponin, cardiology is according cardiac catheterization to rule out any coronary occlusive disease. Numbness may be due to muscle spasm. CT angios the chest did not show any pulmonary embolism. Patient is on IV heparin for concerns of acute coronary syndromes. Patient's pacemaker will be interrogated as well -Coronary artery disease with previous stents in the past -History of DVT presently not on any anticoagulation -Hyperlipidemia -Hypertension -Coronary artery disease DVT prophylaxis: On IV heparin at this time Past Medical History Past Medical History: Coronary Artery Disease (CAD), Deep Vein Thrombosis (DVT), Hyperlipidemia, Hypertension, Myocardial Infarction (ME), Syncope Additional Past Medical History / Comment(s): DVT IN LEFT ARM -AUGUST 2021 Last Myocardial Infarction Date:: October 2018 History of Any Multi-Drug Resistant Organisms: None Reported Past Surgical History: Heart Catheterization With Stent, Pacemaker, Tonsillectomy Additional Past Surgical History / Comment(s): Stent in October of 2018, and 02/13. Past Anesthesia/Blood Transfusion Reactions: No Reported Reaction Date of Last Stent Placement:: 02/13 Type of Cardiac Device: Permanent Pacemaker Device Placement Date:: [id number] Past Psychological History: No Psychological Hx Reported Smoking Status: Never smoker Past Alcohol Use History: None Reported Past Drug Use History: None Reported - Past Family History Father Additional Family Medical History / Comment(s): CABG, kidney failure. Mother Additional Family Medical History / Comment(s): [employer].- Brother(s) Family Medical History: Deep Vein Thrombosis (DVT) Medications and Allergies Home Medications Medication Instructions Recorded Confirmed Type Losartan [Cozaar] 50 mg PO BID #60 tab 11/13/18 09/19/22 Rx Atorvastatin Calcium [Lipitor] 10 mg PO HS #30 tab 11/14/18 09/19/22 Rx Ascorbic Acid [Vitamin C] 1,000 mg PO BID 01/26/22 09/19/22 History Cholecalciferol [Vitamin D3 (125 125 mcg PO DAILY 01/26/22 09/19/22 History Mcg = 5000 Iu)] Apple Cider Vinegar Gummies 1 dose PO DAILY 09/19/22 09/19/22 History Clopidogrel [Plavix] 75 mg PO DAILY 09/19/22 09/19/22 History Allergies Allergy/AdvReac Type Severity Reaction Status Date / Time adhesive tape Allergy RED SKIN, Verified 09/19/22 21:12 Physical Exam Vitals: Vital Signs Temp Pulse Pulse Resp BP BP Pulse Ox 09/20/22 11:19 71 17 162/99 97 09/20/22 09:19 98.4 F 63 16 185/93 98 09/20/22 03:46 63 17 168/80 98 09/20/22 00:24 167/90 09/19/22 23:37 82 18 195/99 99 09/19/22 22:10 98.3 F 61 18 180/83 98 09/19/22 21:36 63 16 159/72 95 09/19/22 19:39 64 18 183/80 97 09/19/22 18:42 63 18 181/90 97 09/19/22 18:04 97.9 F 79 18 194/90 98 Intake and Output 09/19/22 09/20/22 09/20/22 22:59 06:59 14:59 Intake Total 76.167 80.68 Balance 76.167 80.68 Intake: Intake, IV Titration 76.167 80.68 Amount Heparin Sod,Pork in 0.45% 76.167 80.68 NaCl 25,000 unit In 0.45 % NaCl 1 250ml.bag @ 7. 874 UNITS/KG/HR 10 mls/hr IV .Q24H [facility] Rx#: [id number] Other: Voiding Method Toilet # Voids 1 Weight 127.006 kg Results CBC & Chem 7: 09/20/22 03:35 09/19/22 18:41 Labs: Abnormal Lab Results - Last 24 Hours (Table) 09/19/22 09/19/22 09/20/22 Range/Units 18:41 18:41 00:53 APTT (22.0-30.0) sec Glucose 105 H (74-99) mg/dL Alkaline Phosphatase 145 H (38-126) U/L Troponin I 0.044 H* 0.073 H* (0.000-0.034) ng/mL 09/20/22 09/20/22 09/20/22 Range/Units 03:35 03:35 10:25 APTT 37.8 H 42.2 H (22.0-30.0) sec Glucose (74-99) mg/dL Alkaline Phosphatase (38-126) U/L Troponin I 0.068 H* (0.000-0.034) ng/mL Thrombosis Risk Factor Assmnt - Choose All That Apply Any of the Below Risk Factors Present?: Yes Each Factor Represents 1 point: Obesity (BMI >25) Other Risk Factors: Yes Each Risk Factor Represents 2 Points: Age 61-74 years Each Risk Factor Represents 3 Points: History of DVT/PE Other congenital or acquired thrombophilia - If yes, enter type in comment: No Thrombosis Risk Factor Assessment Total Risk Factor Score: 6 Thrombosis Risk Factor Assessment Level: High Risk
[2022-09-20] MEDS: ATORVASTATIN 10 MG TAB PO SCH (19:45)
[2022-09-21] MEDS: carvediloL 6.25 MG TAB PO SCH ×2 (05:39→17:29)
[2022-09-21] MEDS: ASCORBIC ACID 500 MG TAB PO SCH ×2 (05:39→19:46)
[2022-09-21] MEDS: CLOPIDOGREL 75 MG TAB PO SCH (05:39)
[2022-09-21] MEDS: LOSARTAN 50 MG TAB PO SCH ×2 (05:39→19:47)
[2022-09-21] MEDS: HEPARIN SOD,PORK IN 0.45% NACL 25,000 UNIT in 0.45% NACL 1 250ML.BAG IV SCH (05:41)
[2022-09-21 05:56] LABS: Glucose,Whole Blood 130 mg/dL (70-110)
[2022-09-21] MEDS ORDERED: HEPARIN SODIUM,PORCINE 10,000 UNIT in SODIUM CHLORIDE 0.9% 1,000 ML IRRIGATION PRN (07:00)
[2022-09-21] MEDS ORDERED: HEPARIN SODIUM,PORCINE 2,500 UNIT in SODIUM CHLORIDE 0.9% 250 ML IRRIGATION PRN (07:00)
[2022-09-21] MEDS ORDERED: IV FLUID CONTINUATION 900 ML IV ONE (08:20)
[2022-09-21] MEDS ORDERED: HEPARIN SODIUM 1,000 UN/ML (10ML VL) ONE (08:27)
[2022-09-21] MEDS ORDERED: VERAPAMIL 2.5 MG/ML 2 ML AMP ONE (08:27)
[2022-09-21] MEDS ORDERED: MIDAZOLAM 2 MG/2 ML VIAL IV ONE (08:40)
[2022-09-21] MEDS ORDERED: LIDOCAINE 1% INJ 10MG/ML (5 ML VIAL-PF) SQ ONE (08:45)
[2022-09-21] MEDS ORDERED: VERAPAMIL SYRINGE (5 MG/10 ML) INTRAARTER ONE (08:48)
[2022-09-21] MEDS: MIDAZOLAM 2 MG/2 ML VIAL IV ONE ×2 (09:10→09:20)
[2022-09-21] MEDS ORDERED: fentaNYL (PF) 50 MCG/ML 2 ML AMP ONE (09:26)
[2022-09-21] MEDS ORDERED: fentaNYL (PF) 50 MCG/ML 2 ML AMP IV ONE (09:28)
[2022-09-21] MEDS ORDERED: IOPAMIDOL-370 125ML BTL INJ ONE (09:30)
[2022-09-21] MEDS ORDERED: SODIUM CHLORIDE 0.9% 1,000 ML IV SCH (09:45)
[2022-09-21] MEDS ORDERED: RX INFO: IV CONTRAST WAS GIVEN 1 EACH MISC MISCELLANE PRN (09:45)
--- NOTE | 2022-09-21 11:31 | P.PN ---
Subjective 67-year-old pleasant male with previous history of stents came in with the complaints of tingling and numbness in the left and discomfort in the pacemaker area. Patient denied any fever chills patient denied any shock related to pacemaker. Patient was also having some paraspinal muscle spasm and spasm in the trapezius area which she believes may be contributing to his pain as well although patient is found to have mildly elevated troponin of 0.068. Cardiology evaluated the patient and recommended a cardiac catheterization patient blood pressure is bit high on admission. 09/21/2022 Patient says that his numbness and chest pain are significantly improved, he still complaining of from the distal discomfort of his neck. But this is been going on is not new. Also patient is fully awake and oriented, he was asking if his going to be disc harged after the cardiac cath. Explained for him he may need to be monitored tomorrow and he agrees. Vital signs stable. Labs are reviewed. He was on heparin drip in the morning and Plavix Objective - Vital Signs Vital signs: Vital Signs Temp 98.1 F 09/21/22 07:57 Pulse 71 09/21/22 08:00 Resp 16 09/21/22 08:00 BP 158/81 09/21/22 07:57 Pulse Ox 98 09/21/22 07:57 FiO2 Intake & Output 09/20/22 09/21/22 09/21/22 18:59 06:59 18:59 Intake Total 738.68 393.153 Output Total 400 Balance 338.68 393.153 Intake: IV 300 Intake, IV Titration 80.68 93.153 Amount Heparin Sod,Pork in 0.45% 80.68 93.153 NaCl 25,000 unit In 0.45 % NaCl 1 250ml.bag @ 7. 874 UNITS/KG/HR 10 mls/hr IV .Q24H [facility] Rx#: [id number] Oral 658 Output: Urine 400 Other: Voiding Method Toilet Toilet Toilet # Voids 2 - Exam GENERAL: The patient is alert and oriented x3, not in any acute distress. Well developed, well nourished. HEENT: Pupils are round and equally reacting to light. EOMI. No scleral icterus. No conjunctival pallor. Normocephalic, atraumatic. No pharyngeal erythema. No thyromegaly. CARDIOVASCULAR: S1 and S2 present. No murmurs, rubs, or gallops. PULMONARY: Chest is clear to auscultation, no wheezing or crackles. ABDOMEN: Soft, nontender, nondistended, normoactive bowel sounds. No palpable organomegaly. MUSCULOSKELETAL: No joint swelling or deformity. EXTREMITIES: No cyanosis, clubbing, or pedal edema. NEUROLOGICAL: Gross neurological examination did not reveal any focal deficits. SKIN: No rashes. no petechiae. - Labs CBC & Chem 7: 09/20/22 03:35 09/19/22 18:41 Labs: Abnormal Lab Results - Last 24 Hours (Table) 09/20/22 09/21/22 09/21/22 Range/Units 17:44 05:46 05:53 APTT 47.8 H 43.8 H (22.0-30.0) sec POC Glucose (mg/dL) 130 H (70-110) mg/dL Assessment and Plan Assessment: -Left arm tingling numbness with mildly elevated troponin, patient is going for cardiac catheterization to rule out any coronary occlusive disease. Cardiology team of the case. Numbness may be due to muscle spasm. CT angios the chest did not show any pulmonary embolism. Patient is on IV heparin for concerns of acute coronary syndromes. -Coronary artery disease with previous stents in the past -History of DVT presently not on any anticoagulation -Hyperlipidemia -Hypertension -Coronary artery disease DVT prophylaxis: On IV heparin at this time
[2022-09-21 11:57] LABS: Glucose,Whole Blood 165 mg/dL (70-110)
--- NOTE | 2022-09-21 13:22 | CA ---
Transthoracic Echo Report Name: Panda Mckeon Age: 67 Gender: M : 1955 Exam Date: 09/20/2022 11:28 Exam Location: [facility] Ht (in): 77 Wt (lb): 280 Ordering Physician: Shama Downs Attending/Referring Phys: [id number], Yareli Braille Operator Jay Beverly RDCS Procedure CPT: Indications: LVF Cardiac Hx: HTN;CAD;Pacemaker;Obesity: high Cholesterol; Technical Quality: Technically difficult study Contrast 1: Lumason Total Dose (mL): 6 Contrast 2: Total Dose (mL): MEASUREMENTS (Male / Female) Normal Values 2D ECHO LV Diastolic Diameter PLAX 5.4 cm 4.2 - 5.9 / 3.9 - 5.3 cm LV Systolic Diameter PLAX 4.5 cm LV Fractional Shortening PLAX 16.9 % IVS Diastolic Thickness 1.2 cm 0.6 - 1.0 / 0.6 - 0.9 cm IVS Systolic Thickness 1.8 cm LVPW Diastolic Thickness 1.4 cm 0.6 - 1.0 / 0.6 - 0.9 cm LVPW Systolic Thickness 2.1 cm LV Relative Wall Thickness 0.5 RV Internal Dim ED PLAX 4.2 cm LVOT Diameter 2.5 cm LA Systolic Diameter LX 4.6 cm 3.0 - 4.0 / 2.7 - 3.8 cm LV Diastolic Volume MOD BP 67.1 cm??? 67 - 155 / 56 - 104 cm??? LV Systolic Volume MOD BP 18.2 cm??? 22 - 58 / 19 - 49 cm??? LV Ejection Fraction MOD BP 72.9 % >= 55 % LV Stroke Volume MOD BP 49.0 cm??? LV Diastolic Volume MOD 4C 74.3 cm??? LV Systolic Volume MOD 4C 31.6 cm??? LV Ejection Fraction MOD 4C 57.4 % LV Stroke Volume MOD 4C 42.7 cm??? LV Diastolic Length 4C 7.5 cm LV Systolic Length 4C 5.7 cm LV Diastolic Volume MOD 2C 61.6 cm??? LV Systolic Volume MOD 2C 10.1 cm??? LV Ejection Fraction MOD 2C 83.6 % LV Stroke Volume MOD 2C 51.5 cm??? LV Diastolic Length 2C 7.5 cm LV Systolic Length 2C 5.4 cm Ascending Aorta Diameter 2.4 cm M-MODE LV Diastolic Diameter MM 7.6 cm 4.2 - 5.9 / 3.9 - 5.3 cm LV Diastolic Volume MM Teich 310.3 cm??? LV Systolic Diameter MM 5.6 cm LV Systolic Volume MM Teich 151.7 cm??? LV Fractional Shortening MM 27.1 % 25 - 43 / 27 - 45 % LV Ejection Fraction MM Teich 51.1 % LV Stroke Volume MM Teich 158.6 cm??? IVS Diastolic Thickness MM 1.2 cm 0.6 - 1.0 / 0.6 - 0.9 cm IVS Systolic Thickness MM 1.8 cm LVPW Diastolic Thickness MM 1.1 cm 0.6 - 1.0 / 0.6 - 0.9 cm LVPW Systolic Thickness MM 2.1 cm LV Relative Wall Thickness MM 0.3 0.24 - 0.42 / 0.22 - 0.42 LVMW Fractional Shortening MM 15.7 % 14 - 22 / 15 - 23 % LV Mass MM 451.8 g 88 - 224 / 67 - 162 g LV Mass Index MM 172.0 g/m??? 49 - 115 / 43 - 95 g/m??? Aortic Root Diameter MM 4.0 cm LA Systolic Diameter MM 4.3 cm LA Ao Ratio MM 1.1 MV E Point Septal Separation 2.7 cm AV Cusp Separation MM 2.0 cm DOPPLER AV Peak Velocity 130.1 cm/s AV Peak Gradient 6.8 mmHg MV Peak Velocity 86.4 cm/s MV Peak Gradient 3.0 mmHg MV Mean Velocity 53.4 cm/s MV Mean Gradient 1.3 mmHg MV Velocity Time Integral 28.3 cm Mitral E Point Velocity 52.4 cm/s Mitral A Point Velocity 78.5 cm/s Mitral E to A Ratio 0.7 MV Deceleration Time 393.4 ms MV E' Velocity 5.0 cm/s Mitral E to MV E' Ratio 10.5 TR Peak Velocity 106.8 cm/s TR Peak Gradient 4.6 mmHg Right Ventricular Systolic Press 9.6 mmHg PV Peak Velocity 103.4 cm/s PV Peak Gradient 4.3 mmHg FINDINGS Left Ventricle Left ventricular ejection fraction is estimated at 50-55 %. Borderline left ventricular hypertrophy. Grade 1 diastolic dysfunction. Normal basal systolic function. Right Ventricle Normal right ventricular size. Prominent moderator band in right ventricle (normal variant). Right Atrium Mild right atrial dilatation. Catheter/pacemaker wire in the right atrial cavity. Left Atrium Mild left atrial dilatation. Mitral Valve Mild thickening/calcification of the anterior mitral valve leaflet. Mild thickening/calcification of the posterior mitral valve leaflet. Minimal mitral stenosis. Trace to mild mitral regurgitation. Aortic Valve Trileaflet aortic valve. Diffuse thickening (sclerosis) of the aortic valve cusps without reduced excursion. Tricuspid Valve Mild tricuspid regurgitation. Pulmonic Valve Trace to mild pulmonic regurgitation. Pericardium Normal pericardium. No pericardial effusion. Aorta Normal size aortic root and proximal ascending aorta. CONCLUSIONS Left ventricular ejection fraction 50-55% Mild mitral annular calcification Trace to mild mitral regurgitation Aortic sclerosis without significant aortic stenosis Mild tricuspid regurgitation No pericardial effusion Previewed by: Dr. Earl Brown DO (Electronically Signed) Final Date: 21 September 2022 13:21
[2022-09-21] MEDS: ATORVASTATIN 10 MG TAB PO SCH (19:46)
--- NOTE | 2022-09-21 20:45 | P.PCN ---
Date of Procedure: 09/21/22 Operative Findings: CARDIAC CATHETERIZATION PERFORMING PHYSICIAN: Srikanth Dumont MD, RPVI PROCEDURE PERFORMED: 1. Selective right and left coronary angiogram 2. Left heart catheterization 3. iFR of the first obtuse marginal branch of the left circumflex INDICATION: Chest discomfort and neck discomfort concerning for angina in this 67-year-old gentleman who is known to have CAD with prior revascularization COMPLICATION: None APPROACH: Right radial artery LEVEL OF SEDATION: Moderate with a sedation length of 35 minutes PROCEDURE DESCRIPTION: After obtaining an informed consent, the patient was brought to cardiac laborer [facility]. Local anesthesia was performed using lidocaine subcutaneously. The right radial artery was cannulated using Seldinger technique, the guidewire passed easily, following that we advanced a 5-Iranian sheath dilator assembly, the wire and dilator were removed and sheath was flushed. Attempting advancing an 035 wire was unsuccessful at the right brachial artery. Selective right and left coronary angiogram using a 6-Iranian JR4 and JL 4 catheters. Following that we did left heart catheterization using 6-Iranian pigtail catheter. Then I did perform iFR of the left circumflex. The procedure was completed there was no complication. SELECTIVE CORONARY ANGIOGRAM: The right coronary artery: Has mild disease only. Large-caliber vessel and dominant vessel. Left main: Is angiographically normal. Bifurcates into an LCx and LAD The left circumflex: Large-caliber vessel. The proximal portion has mild disease only. Gives rises into an OM1 which has intermediate lesion. We did FFR came in to be nonischemic. Then gives rises in 2 oh him to which bifurcates into 2 subbranches both appeared to have mild to moderate disease only. The left anterior descending artery: Has mild disease only. Large-caliber vessel and reaches the apex HEMODYNAMICS: The LVEDP was about 20 mmHg was no significant gradient across aortic valve iFR OF THE OM-1: After his zeroing the Doppler wire and equalizing between the Doppler wire and guiding catheter which was JL 3.5 guiding catheter we did iFR that came in to be nonischemic at 0.95. The procedure was completed with no complication CONCLUSION: 1. Intermediate disease involving OM1. iFR was nonischemic 2. Elevated left-sided filling pressure POSTPROCEDURE MANAGEMENT: Medical treatment
[2022-09-22 06:07] LABS: Basophils % (A) 1 %; Eosinophils # (A) 0.1 k/uL (0-0.7); Eosinophils % (A) 2 %; HCT 41.3 % (39.0-53.0); HGB 13.5 gm/dL (13.0-17.5); Lymphocytes # (A) 1.8 k/uL (1.0-4.8); Lymphocytes % (A) 31 %; MCH 29.6 pg (25.0-35.0); MCHC 32.6 g/dL (31.0-37.0); Mean Platelet Volume 8.2; Monocytes # (A) 0.3 k/uL (0-1.0); Monocytes % (A) 6 %; Neutrophils # (A) 3.6 k/uL (1.3-7.7); Neutrophils % (A) 60 %; Platelet Count 185 k/uL (150-450); RBC 4.54 m/uL (4.30-5.90); RDW 14.1 % (11.5-15.5)
[2022-09-22] MEDS: carvediloL 6.25 MG TAB PO SCH (06:12)
[2022-09-22 06:17] LABS: African American GFR (CKD) >90 (>60 ml/min/1.73 sqM); Anion Gap 5 mmol/L; Blood Urea Nitrogen 15 mg/dL (9-20); Calcium 8.9 mg/dL (8.4-10.2); Carbon Dioxide 30 mmol/L (22-30); Chloride 104 mmol/L (98-107); Glucose 112 mg/dL (74-99); Non-African American GFR(CKD) 89 (>60 ml/min/1.73 sqM); Potassium 5.1 mmol/L (3.5-5.1); Sodium 139 mmol/L (137-145)
--- NOTE | 2022-09-22 08:09 | P.PN ---
Subjective Progress Note Date: 09/22/22 nstemi History of present illness: History of present illness: This is a 67-year-old male patient of Dr. Dumont a past medical history of coronary artery disease with prior stenting of the OM 3 of the LC ex as well as permanent pacemaker, hypertension, dyslipidemia, history of DVT. We have been asked to evaluate patient for non-ST elevated myocardial infarction. Patient states that 3 years ago he had stent placement at that time it passed out and then had a stiff neck at that time. He has now developed a stiff neck left shoulder arm and hand pain with arm and hand tingling that seems similar to the symptoms he had before but he has not passed out. He states he has had some symptoms going on for the past 2-3 weeks but for the past 1-1/2 weeks it has been there about 80% of the time. Prior to that it was very intermittent and would last only a short period. Activity does not seem to make the pain better or worse. He does note that when he turns his head to the left it makes his discomfort increased. Patient presented with a blood pressure 194/90. EKG pacer rhythm Chest x-ray: No active disease CT angiogram of the head and neck negative. Mild cerebral atrophy. No acute intracranial abnormality. CBC within normal limits. INR 1. Troponin 0.044, 0.073, 0.068. Alkaline phosphatase 145 otherwise liver function tests are normal. Electrolytes and renal function are normal with BUN of 15 and creatinine 0.93. Blood sugar 105. Lipase 110. Home cardiac medications: Atorvastatin 10 mg at bedtime, Plavix 75 mg daily, losartan 50 mg twice daily Cardiac catheterization 01/2022 revealed severe disease involving the OM 3. Intermediate in-stent restenosis of OM and successful stenting of the OM 3. Normal left-sided filling pressures Dual chamber pacemaker implantation [employer]'s device, 08/26/2021 Echocardiogram 12/27/2021: Normal EF, mild MR 09/22 Yesterday, patient underwent cardiac catheterization with Dr. Dumont which revealed intermediate disease involving the OM 1. iFR was nonischemic. Elevated left-sided filling pressure. Echocardiogram reveals left ventricular EF 50-55%. Mild mitral calcification. Trace to mild mitral regurgitation. Aortic sclerosis without significant aortic stenosis. Mild tricuspid regurgitation. No pericardial effusion. Patient denies having any chest pain or shortness of breath. Heart rate has been in the 60s, blood pressure 154/84, pulse ox 100% on room air. Telemetry is paced rhythm. CBC is within normal limits. Electrolytes are within normal limits, creatinine 0.88. BUN 15. Physical examination: Gen: This is a 67-year-old male. He is resting in bed appears to be comfortable and in no acute distress. VS: reviewed HEENT: Head is atraumatic, normocephalic. Pupils equal, round. Sclerae is anicteric. NECK: Supple. No JVD. . LUNGS: Clear to auscultation. No wheezes or rhonchi. No intercostal retractions. HEART: Regular rate and rhythm. Systolic murmur at the right upper sternal border. Pacemaker left anterior chest wall. ABDOMEN: Soft No tenderness. EXTREMITIES: No pedal edema. No calf tenderness. NEUROLOGICAL: Patient is awake, alert and oriented x3. Assessment: Elevated troponins, possible non-ST elevated myocardial infarction has been ruled out Neck discomfort with left arm numbness and tingling History of coronary artery disease Permanent pacemaker Hypertension Dyslipidemia History of DVT Plan: Continue patient's current cardiac medications Patient is cleared for discharge from cardiology and may follow up with Dr. Dumont and 2-3 weeks. Nurse practitioner note has been reviewed, I agree with documented findings and plan of care. Patient was seen and examined. Objective - Vital Signs Vital signs: Vital Signs Temp 98.2 F 09/21/22 19:45 Pulse 61 09/22/22 05:35 Resp 17 09/22/22 05:35 BP 154/84 09/22/22 05:35 Pulse Ox 100 09/22/22 05:35 FiO2 Intake & Output 09/21/22 09/21/22 09/22/22 06:59 18:59 06:59 Intake Total 2178.153 Balance 2178.153 Intake: IV 300 Intake, IV Titration 318.153 Amount Heparin Sod,Pork in 0.45% 93.153 NaCl 25,000 unit In 0.45 % NaCl 1 250ml.bag @ 7. 874 UNITS/KG/HR 10 mls/hr IV .Q24H [facility] Rx#: [id number] Sodium Chloride 0.9% 1, 225 000 ml @ 75 mls/hr IV . [id number] [facility] Rx#:[id number] Oral 1560 Other: Voiding Method Toilet Toilet Toilet # Voids 2 1 1 - Labs CBC & Chem 7: 09/22/22 05:45 09/22/22 05:45 Labs: Abnormal Lab Results - Last 24 Hours (Table) 09/21/22 09/21/22 09/22/22 Range/Units 05:46 11:48 05:45 APTT 43.8 H (22.0-30.0) sec Glucose 112 H (74-99) mg/dL POC Glucose (mg/dL) 165 H (70-110) mg/dL
[2022-09-22 09:01] VITALS: BP 151/84; RESP 18; TEMP 97.5
[2022-09-22] MEDS: CLOPIDOGREL 75 MG TAB PO SCH (09:01)
[2022-09-22] MEDS: ASCORBIC ACID 500 MG TAB PO SCH (09:01)
[2022-09-22] MEDS: LOSARTAN 50 MG TAB PO SCH (09:02)
[2022-09-22 09:23] VITALS: PULSE 71
--- NOTE | 2022-09-22 22:48 | P.DS ---
Providers Date of admission: 09/19/22 21:28 Attending physician: Dimple Marks Consults: 09/19/22 21:28 Consult Physician Routine Consulting Provider: [facility] Consult Reason/Comments: NSTEMI Do you want consulting provider notified?: Yes, Notify in am 09/22/22 07:29 Consult Physician Routine Consulting Provider: Hieu Ohara Consult Reason/Comments: persistant numbness of the left hand and face Do you want consulting provider notified?: Yes [facility] Course: Diagnoses: -Left arm tingling numbness with mildly elevated troponin,s/p cardiac pinky terization showing intermediate disease and single stayer operator recommended medical management. Other causes are considered in the differential diagnosis including musculoskeletal, spine disease, stroke or neurological causes. However patient declined any further workup and he wanted to be discharged. Of note his symptoms are significantly improved upon discharge -Left upper shoulder lump with a smooth borders and multiple suspicious for lipoma, other causes cannot be excluded patient instructed to follow-up outpatient and he agrees (see below) -Coronary artery disease with previous stents in the past -History of DVT presently not on any anticoagulation -Hyperlipidemia -Hypertension -Coronary artery disease Hospital course: 67-year-old pleasant male with previous history of stents came in with the complaints of tingling and numbness in the left and discomfort and pain in the left upper chest, he is been evaluated by single stayer operator and he underwent cardiac catheterization with Dr. Dumont which revealed intermediate disease involving the OM 1. iFR was nonischemic. Elevated left-sided filling pressure. Echocardiogram reveals left ventricular EF 50-55%. Cardiology team this morning. The patient for discharge When I saw the patient he was resting in bed fully awake and oriented to time place and person, he has inside into his illness, is telling me that his symptoms are significantly improved, he has no more chest pain or shoulder pain, no neck pain, his numbness in his arm and face are significantly improved he still feeling some tingling in his hand but that's position only when he turns his head to the side however when he turns his head to the other side his numbness goes away, patient denies any weakness in both upper and lower extremity, he denies any headaches or dizziness, no blurred vision or slurred speech however I discussed with the patient the possibility of neurological causes for his symptoms like stroke, patient initially agreed to do workup and consultation urology service, however a few minutes later he called me into his room and he said that he does not want to [facility] and he declines any further workup and he wants to go home on follow-up with his primary doctor. Risks including but not limited to stroke with possible progression, paralysis and loss of organ and/or are explained for the patient extensively, he verbalized understanding however he was adamant to go home today and follow-up outpatient, as such I called his PCP Dr. Mo and discussed the case with him and he kindly took note of the patient's presentation and symptoms and we made an appointment with him tomorrow Sunday where the office will be open and time of appointment at 10:15 a.m. patient informed with this appointment and he was very appreciative and happy and states that he will follow-up. Also I offered for the patient to start him on aspirin on the top of his home dose of Plavix however patient declined stating that he was actually taking aspirin and Plavix since he had the stent on January last year as he explains however about 2 weeks ago he started having bleeding from his belly button (i.e referring to his umbilicus) other than GI bleed and that time he contacted his single stayer operator Dr. Caruso who asked him to stop aspirin and continue with Plavix. As such he declines today to resume any other blood thinners or aspirin and to continue with Plavix only. Patient denies any other symptoms, no chest pain dyspnea or coughing, no change in urine or bowel habits. No fever. Patient agrees and adamant to go home today Patient was cleared for discharge by single stayer operator Problems and management plan were discussed with the patient and he verbalized understanding and acceptance Patient was found stable and can be discharged home in guarded prognosis however he needs follow-up as an outpatient. Patient was instructed to follow up with PCP Dr. Mo within one week and patient agrees with the appointments made for him tomorrow on Saturday 09/23 at 10:15 AM also patient was complaining of from lump in his upper shoulder suspicious for lipoma and instructed to follow up with surgeon as an outpatient and he agrees to follow up with Dr. Bender in 1-2 weeks Patient also instructed to follow up with single stayer operator Dr. Dumont in one to 2 weeks and he agrees Patient also instructed to follow up with the neurologist within one to 2 days or earlier weekdays this coming week and he agrees. Also he'll follow-up with his PCP regarding this matter Physical exam Gen: patient is a AAOx3, no distress CVS: S1-S2, RRR, no murmur Lungs: B/L CTA, no wheezing Abdomen: soft, no distention, no tenderness, positive bowel sounds Extremity: no leg edema or induration Time spent more than 35 minutes Patient Condition at Discharge: Stable Plan - Discharge Summary Discharge Rx Participant: No New Discharge Prescriptions: New carvediloL [Coreg] 6.25 mg PO BID-W/MEALS #60 tab Nitroglycerin Sl Tabs [Nitrostat] 0.4 mg SUBLINGUAL Q5M PRN #10 tab PRN Reason: Chest Pain Continue Losartan [Cozaar] 50 mg PO BID #60 tab Atorvastatin Calcium [Lipitor] 10 mg PO HS #30 tab Cholecalciferol [Vitamin D3 (125 Mcg = 5000 Iu)] 125 mcg PO DAILY Apple Cider Vinegar Gummies 1 dose PO DAILY Ascorbic Acid [Vitamin C] 1,000 mg PO BID Clopidogrel [Plavix] 75 mg PO DAILY Discharge Medication List Losartan [Cozaar] 50 mg PO BID #60 tab 11/13/18 [Rx] Atorvastatin Calcium [Lipitor] 10 mg PO HS #30 tab 11/14/18 [Rx] Ascorbic Acid [Vitamin C] 1,000 mg PO BID 01/26/22 [History] Cholecalciferol [Vitamin D3 (125 Mcg = 5000 Iu)] 125 mcg PO DAILY 01/26/22 [History] Apple Cider Vinegar Gummies 1 dose PO DAILY 09/19/22 [History] Clopidogrel [Plavix] 75 mg PO DAILY 09/19/22 [History] Nitroglycerin Sl Tabs [Nitrostat] 0.4 mg SUBLINGUAL Q5M PRN #10 tab 09/22/22 [Rx] carvediloL [Coreg] 6.25 mg PO BID-W/MEALS #60 tab 09/22/22 [Rx] Follow up Appointment(s)/Referral(s): Srikanth Dumont MD [STAFF PHYSICIAN] - 09/28/22 4:30 pm ([facility] ()) Usman Marsh MD [Medical Doctor] - 1-2 Days (neurologist They will call to schedule an Appt ) Felipe Mar DO [Primary Care Provider] - 09/23/22 10:15 am Rodger Marks MD [STAFF PHYSICIAN] - 10/05/22 9:00 am (general surgeon for a lump on your left shoulder ) Activity/Diet/Wound Care/Special Instructions: heart healthy diet activity is restricted till you see your doctor Discharge Disposition: HOME SELF-CARE
== END 2022-09-22 10:42 | disposition home or self-care (01) | DRG 287 ==
LOC: EC 17:40 → 3SCARD 21:28
PROVIDERS: ADMIT Hospitalist; ATTEND Hospitalist
PROC: B2111ZZ Fluoroscopy of Multiple Coronary Arteries using Low Osmolar Contrast (ICD-10-PCS; principal; 2022-09-21 09:00)
PROC: 4A033BC Measurement of Arterial Pressure, Coronary, Percutaneous Approach (ICD-10-PCS; principal; 2022-09-21 09:00)
PROC: 4A023N7 Measurement of Cardiac Sampling and Pressure, Left Heart, Percutaneous Approach (ICD-10-PCS; principal; 2022-09-21 09:00)
PROC: 4B02XSZ Measurement of Cardiac Pacemaker, External Approach (ICD-10-PCS; 2022-09-21 09:00)
DX: I25.10 Atherosclerotic heart disease of native coronary artery without angina pectoris (principal); M43.6 Torticollis; D17.79 Benign lipomatous neoplasm of other sites; Z28.310 Unvaccinated for COVID-19; M62.830 Muscle spasm of back; E78.5 Hyperlipidemia, unspecified; I10 Essential (primary) hypertension; I35.8 Other nonrheumatic aortic valve disorders; I25.2 Old myocardial infarction; R77.8 Other specified abnormalities of plasma proteins; Z79.02 Long term (current) use of antithrombotics/antiplatelets; Z79.899 Other long term (current) drug therapy; Z95.5 Presence of coronary angioplasty implant and graft; Z95.0 Presence of cardiac pacemaker; Z86.718 Personal history of other venous thrombosis and embolism; Z82.49 Family history of ischemic heart disease and other diseases of the circulatory system
CPT/HCPCS: 36415; 70496; 70498; 71046; 80048; 80053; 83690; 83735; 83880; 84484; 85025; 85610; 85730; 93005; 93306; 93458; 93799; 96365; 99285

== ENCOUNTER → 2024-11-11 | Outpatient (CLI) | payer MEDICARE, OTHER ==
[2024-11-11 23:10] LABS: C Reactive Protein <0.30 mg/dL (0.00-0.80); Rheumatoid Factor, Qnt <15 IU/mL (0-15)
[2024-11-12 10:06] LABS: HLA B27 NEGATIVE
[2024-11-12 10:16] LABS: Angiotensin-1 Converting Enz. 63 U/L (8-52)
[2024-11-12 14:03] LABS: C-ANCA <1:20 Titer (<1:20)
== END | disposition home or self-care (01) ==
LOC: LABWHC1 14:39
PROVIDERS: ATTEND Ophthalmology
DX: H15.009 Unspecified scleritis, unspecified eye (principal)
CPT/HCPCS: 36415; 82164; 85549; 85652; 86038; 86140; 86255; 86431; 86812

== ENCOUNTER 2024-12-11 09:55 | Day surgery (SDC) | payer MEDICARE, OTHER ==
[2024-12-09 11:42] VITALS: BMI 35.5
[~2024-12-11 09:55] MED LIST changes: +HEPARIN SODIUM,PORCINE (1 ML) 2,500 UNIT in SODIUM CHLORIDE 0.9% 250 ML IRRIGATION PRN; +HEPARIN SODIUM,PORCINE 10,000 UNIT in SODIUM CHLORIDE 0.9% 1,000 ML IRRIGATION PRN
[2024-12-11] MEDS: IV FLUID CONTINUATION 1,000 ML IV ONE (10:30)
[2024-12-11] MEDS: SODIUM CHLORIDE 0.9% 1,000 ML in EMPTY BAG 1 BAG IV SCH (10:46)
[2024-12-11] MEDS: ASPIRIN 325 MG TAB PO ONE (10:46)
[2024-12-11 11:07] VITALS: RESP 16; TEMP 98.3
[2024-12-11 11:08] LABS: Basophils # (A) 0.06 10*3/uL (0.00-0.10); Basophils % (A) 0.9 %; Eosinophils # (A) 0.15 10*3/uL (0.04-0.35); Eosinophils % (A) 2.3 %; HCT 39.2 % (39.6-50.0); HGB 13.1 g/dL (13.0-17.0); Lymphocytes # (A) 1.53 10*3/uL (0.90-5.00); Lymphocytes % (A) 23.8 %; MCH 30.3 pg (27.0-32.0); MCHC 33.4 g/dL (32.0-37.0); MCV 90.5 fL (80.0-97.0); Mean Platelet Volume 11.1 fL (9.5-12.2); Monocytes # (A) 0.41 10*3/uL (0.20-1.00); Monocytes % (A) 6.4 %; Neutrophils # (A) 4.25 10*3/uL (1.80-7.70); Neutrophils % (A) 66.1 %; Platelet Count 213 10*3/uL (140-440); RBC 4.33 10*6/uL (4.40-5.60); RDW 13.7 % (11.5-14.5); WBC 6.43 10*3/uL (4.50-10.00)
[2024-12-11 11:20] LABS: African American GFR (CKD) >90 (>60 ml/min/1.73 sqM); Anion Gap 9 mmol/L; Blood Urea Nitrogen 16 mg/dL (9-20); Calcium 9.7 mg/dL (8.4-10.2); Carbon Dioxide 26 mmol/L (22-30); Chloride 102 mmol/L (98-107); Glucose 118 mg/dL (74-99); Non-African American GFR(CKD) >90 (>60 ml/min/1.73 sqM); Sodium 137 mmol/L (137-145)
[2024-12-11] MEDS: HEPARIN SODIUM (1,000 UNIT/ML) 1,000 UNIT in SODIUM CHLORIDE 0.9% 1,000 ML IRRIGATION ONE (12:45)
[2024-12-11] MEDS: LIDOCAINE 1% INJ 10MG/ML (20 ML MDV) SQ ONE (13:11)
[2024-12-11] MEDS: MIDAZOLAM 2 MG/2 ML VIAL IVP ONE ×2 (13:14→13:25)
[2024-12-11] MEDS: fentaNYL (PF) 50 MCG/1 ML VIAL IVP ONE (13:14)
[2024-12-11] MEDS: VERAPAMIL SYRINGE (5 MG/10 ML) INTRAARTER ONE (13:14)
[2024-12-11] MEDS: HEPARIN SODIUM 1,000 UN/ML (10ML VL) IVP ONE (13:17)
[2024-12-11] MEDS: fentaNYL (PF) 50 MCG/1 ML VIAL INTRATHECA ONE (13:20)
[2024-12-11] MEDS: IOPAMIDOL-370 100ML BTL INTRATHECA ONE (13:36)
[2024-12-11] MEDS ORDERED: RX INFO: IV CONTRAST WAS GIVEN 1 EACH MISC MISCELLANE PRN (13:44)
[2024-12-11] MEDS: SODIUM CHLORIDE 0.9% 1,000 ML IV SCH (14:20)
[2024-12-11 16:34] VITALS: BP 107/72; PULSE 56
--- NOTE | 2024-12-12 09:14 | P.PCN ---
Date of Procedure: 12/12/24 Operative Findings: CARDIAC CATHETERIZATION PERFORMING PHYSICIAN: Srikanth Dumont MD, RPVI PROCEDURE PERFORMED: 1. Selective right and left coronary angiogram 2. Left heart catheterization 3. Ultrasound-guided access of the right radial artery INDICATION: Symptomatic 69-year-old gentleman with abnormal myocardial perfusion imaging stress COMPLICATION: None APPROACH: Right radial artery LEVEL OF SEDATION: Moderate with a sedation length of 12 minutes PROCEDURE DESCRIPTION: After obtaining an informed consent, the patient was brought to cardiac laborer wood preserving plant. Local anesthesia was performed using lidocaine subcutaneously. The right radial artery was cannulated using Seldinger technique, under ultrasound guidance, the guidewire passed easily, following that we advanced a 5-Macanese sheath dilator assembly, the wire and dilator were removed and sheath was flushed. Following that, 2 mg of verapamil along with 5000 unit heparin were given. Selective right and left coronary angiogram using a 5-Macanese JR4 and JL 3.5 catheters. Following that we did left heart catheterization using 5-Macanese pigtail catheter. The procedure was completed there was no complication. SELECTIVE CORONARY ANGIOGRAM: The right coronary artery: Large caliber vessel and a dominant vessel with no evidence of high-grade stenosis but only intermediate disease involving the midportion Left main: Geographically The left circumflex: Large caliber vessel and codominant vessel with overall intermediate diffuse disease of high-grade stenosis. The left anterior descending artery: Large caliber vessel with no evidence of high-grade stenosis HEMODYNAMICS: LVEDP was about 20 mmHg with no significant gradient across aortic valve CONCLUSION: 1. Intermediate disease involving a medium size mid RCA 2. Intermediate disease involving the left coronary system POSTPROCEDURE MANAGEMENT: Medical treatment
== END 2024-12-11 16:37 | disposition home or self-care (01) ==
LOC: CATHCVL 09:55
PROVIDERS: ATTEND Internal Medicine Interventional Cardiology
DX: I25.10 Atherosclerotic heart disease of native coronary artery without angina pectoris (principal); R94.39 Abnormal result of other cardiovascular function study
CPT/HCPCS: 93458; 80048; 85025; C1769; C1894; J2250; J2003; J1644; Q9967; J3010